=== PATIENT | male | born 1955 | race Caucasian/White ===

== ENCOUNTER 2023-05-19 08:22 | Inpatient (IN) | payer BC ==
[2023-05-19] MEDS ORDERED: HEPARIN SODIUM 1,000 UN/ML (10ML VL) MISCELLANE ONE (08:32)
[2023-05-19] MEDS ORDERED: ASPIRIN 300 MG SUPP RECTAL STA (08:32)
[2023-05-19] MEDS ORDERED: DEXTROSE 5% IN WATER 100 ML with AMIODARONE 150 MG IV ONE (08:34)
--- NOTE | 2023-05-19 08:34 | ED ---
Chest Pain HPI - General Chief Complaint: Chest Pain Stated Complaint: STEMI Time Seen by Provider: 05/19/23 08:25 Source: EMS Mode of arrival: EMS Limitations: no limitations - History of Present Illness Initial Comments: 67-year-old male with recent knee replacement 3 months ago who presents emergency department for chest pain. states that the patient got dressed this morning walked out to his treatment blind which is approximately 50 feet from the house. He had to turn around because he began having shortness of breath and chest pain. He ended up having an episode of vomiting. called EMS who found that the patient had an inferior wall STEMI. In route to the hospital they tried to give the patient aspirin however he was too nauseated. He ended up going unresponsive. Patient found to be in V. fib on the monitor. They started doing a few chest compressions while charging to shock. Patient shocked at 200 J. Patient went back into ventricular fibrillation required a second shock. Patient then went back into normal sinus rhythm. He is mentating appropriately and answering questions. Some blood noted coming from the right tympanic membrane. EMS states that this was not present prior to the patient being shocked. There was no head injury. He does not take any blood thinners. Patient states he feels cold. Denies having a cardiac history. Sees a primary care doctor out of [facility]. He denies shortness of breath. EMS provided 4 mg of Zofran and 200 mL of normal saline. No other alleviating, precipitating or modifying factors - Related Data Home Medications Medication Instructions Recorded Confirmed ALPRAZolam [Xanax] 0.25 mg PO DAILY PRN 05/19/23 05/19/23 Caffeine Tablet 1 tab PO DAILY PRN 05/19/23 05/19/23 Gabapentin 800 mg PO TID 05/19/23 05/19/23 Morphine Sulfate ER [Ms Contin] 30 mg PO Q12HR 05/19/23 05/19/23 PARoxetine [Paxil] 60 mg PO DAILY 05/19/23 05/19/23 Tamsulosin HCl [Flomax] 0.4 mg PO DAILY 05/19/23 05/19/23 oxyCODONE HCL [Oxycodone HCl] 15 mg PO BID 05/19/23 05/19/23 Allergies Allergy/AdvReac Type Severity Reaction Status Date / Time iodine AdvReac Itching Verified 11/26/23 12:57 Review of Systems ROS Statement: Those systems with pertinent positive or pertinent negative responses have been documented in the HPI. ROS Other: All systems not noted in ROS Statement are negative. Past Medical History - Past Family History Mother Family Medical History: No Reported History Father Family Medical History: Congestive Heart Failure (CHF) Additional Family Medical History / Comment(s): General Exam Limitations: no limitations General appearance: alert, in no apparent distress, lethargic Head exam: Present: atraumatic, normocephalic, normal inspection Eye exam: Present: normal appearance, PERRL, EOMI. Absent: scleral icterus, conjunctival injection, periorbital swelling ENT exam: Present: normal exam, mucous membranes moist Neck exam: Present: normal inspection. Absent: tenderness, meningismus, lymphadenopathy Respiratory exam: Present: normal lung sounds bilaterally. Absent: respiratory distress, wheezes, rales, rhonchi, stridor Cardiovascular Exam: Present: regular rate, normal rhythm, normal heart sounds. Absent: systolic murmur, diastolic murmur, rubs, gallop, clicks GI/Abdominal exam: Present: soft, normal bowel sounds. Absent: distended, tenderness, guarding, rebound, rigid Extremities exam: Present: normal inspection, full ROM, normal capillary refill. Absent: tenderness, pedal edema, joint swelling, calf tenderness Back exam: Present: normal inspection Neurological exam: Present: alert, oriented X3, CN II-XII intact Psychiatric exam: Present: normal affect, normal mood Skin exam: Present: warm, dry, intact, normal color. Absent: rash Course Vital Signs 05/19/23 08:24 Pulse Rate 89 Respiratory 24 Rate Blood Pressure 157/106 O2 Sat by Pulse 100 Oximetry Chest Pain MDM - MDM Was pt. sent in by a medical professional or institution (, PA, ROTATIONAL MOULDING OPERATOR, urgent care, hospital, or [facility]...) When possible be specific @ -No Did you speak to anyone other than the patient for history (EMS, parent, family, police, friend...)? What history was obtained from this source @ -Spoke with EMS and are history Did you review nursing and triage notes (agree or disagree)? Why? @ -I reviewed and agree with nursing and triage notes Were old charts reviewed (outside hosp., previous admission, EMS record, old EKG, old radiological studies, urgent care reports/EKG's, [facility] records)? Report findings @ -No old charts were reviewed Differential Diagnosis (chest pain, altered mental status, abdominal pain women, abdominal pain men, vaginal bleeding, weakness, fever, dyspnea, syncope, headache, dizziness, GI bleed, back pain, seizure, CVA, palpatations, mental health, musculoskeletal)? @ -Differential Chest Pain: Stable Angina, Unstable Angina, STEMI, NSTEMI Aortic Dissection, Pneumothorax, Musculoskeletal, Esophageal Spasm GERD, Cholecystitis, Pancreatitis, Zoster, this is not meant to be an all-inclusive list. EKG interpreted by me (3pts min.). @ -Yes and demonstrates sinus rhythm with a rate of 91. TN interval 144. QRS 102. QTC 441. Significant ST elevation 2, 3, aVF with reciprocal depressions in V1 through V4 X-rays interpreted by me (1pt min.). @ -Yes and demonstrates no acute intrathoracic process CT interpreted by me (1pt min.). @ -None done U/S interpreted by me (1pt. min.). @ -None done What testing was considered but not performed or refused? (CT, X-rays, U/S, labs)? Why? @ -None What meds were considered but not given or refused? Why? @ -None Did you discuss the management of the patient with other professionals (professionals i.e. , PA, ROTATIONAL MOULDING OPERATOR, lab, RT, psych nurse, social work associate, liquid center assembler, teacher, chief human resources officer, community case manager)? Give summary @ -Spoke with Dr. Warren Was smoking cessation discussed for >3mins.? @ -No Was critical care preformed (if so, how long)? @ -Yes, 35 minutes Were there social determinants of health that impacted care today? How? (Homelessness, low income, unemployed, alcoholism, drug addiction, transportation, low edu. Level, literacy, decrease access to med. care, halfway, rehab)? @ -No Was there de-escalation of care discussed even if they declined (Discuss DNR or withdrawal of care, Hospice)? DNR status @ -No What co-morbidities impacted this encounter? (DM, HTN, Smoking, COPD, CAD, Cancer, CVA, ARF, Chemo, Hep., AIDS, mental health diagnosis, sleep apnea, morbid obesity)? @ -None Was patient admitted / discharged? Hospital course, mention meds given and route, prescriptions, significant lab abnormalities, going to OR and other pertinent info. @ -Admitted. Patient is activated as a STEMI prehospital and I spoke with Dr. Warren. Upon arrival patient placed in a trauma 2. He is alert and oriented and answering questions appropriately. He is placed on continuous pulse ox and cardiac monitoring. Blood noted coming from the right tympanic membrane. 12- lead EKG is obtained which continues demonstrate STEMI. Patient is given 150 mg bolus of amiodarone, 300 of rectal aspirin, 1 L of normal saline hung, 4000 units of heparin. Chest x-ray was performed. Patient maintains normal sinus rhythm and is transferred to the [facility]. Spoke with Dr. Whitman who agreed to admission. Spoke with Dr. Warren to update him. The patient taken to the [facility] with a guarded prognosis Undiagnosed new problem with uncertain prognosis? @ -Yes Drug Therapy requiring intensive monitoring for toxicity (Heparin, Nitro, Insulin, Cardizem)? @ -heparin Were any procedures done? @ -No Diagnosis/symptom? @ -Acute chest pain, acute STEMI Acute, or Chronic, or Acute on Chronic? @ -Acute Uncomplicated (without systemic symptoms) or Complicated (systemic symptoms)? @ -Complicated Side effects of treatment? @ -No Exacerbation, Progression, or Severe Exacerbation? @ -No Poses a threat to life or bodily function? How? (Chest pain, USA, PR, pneumonia, PE, COPD, DKA, ARF, appy, cholecystitis, CVA, Diverticulitis, Homicidal, Suicidal, threat to staff... and all critical care pts) @ -Yes patient has acute coronary event identified and had V. fib arrest Disposition Clinical Impression: Chest pain, ST elevation myocardial infarction (STEMI), Cardiac arrest with ventricular fibrillation Disposition: ADMITTED IP TO THIS HOSP Condition: Serious Is patient prescribed a controlled substance at d/c from ED?: No Time of Disposition: 08:43 Decision to Admit Reason: Admit from EC Decision Date: 05/19/23 Decision Time: 08:43
[2023-05-19] MEDS ORDERED: SODIUM CHLORIDE 0.9% 1,000 ML IV STA (08:35)
[2023-05-19 08:41] LABS: Glucose,Whole Blood 256 mg/dL (70-110)
[2023-05-19] MEDS ORDERED: HEPARIN SODIUM 1,000 UN/ML (10ML VL) ONE (08:43)
[2023-05-19] MEDS ORDERED: niCARdipine 25 MG/10 ML VIAL ONE (08:43)
[2023-05-19] MEDS ORDERED: NALOXONE 0.4 MG/ML 1 ML VIAL IV PRN (08:43)
[2023-05-19] MEDS ORDERED: VERAPAMIL 2.5 MG/ML 2 ML AMP ONE (08:43)
[2023-05-19] MEDS ORDERED: LIDOCAINE 1% INJ 10MG/ML (20 ML MDV) ONE (08:43)
[2023-05-19 08:47] LABS: Basophils # (A) 0.1 k/uL (0-0.2); Basophils % (A) 1 %; Eosinophils # (A) 0.2 k/uL (0-0.7); Eosinophils % (A) 2 %; HCT 42.1 % (39.0-53.0); HGB 13.6 gm/dL (13.0-17.5); Hypochromasia Slight; Lymphocytes # (A) 1.9 k/uL (1.0-4.8); Lymphocytes % (A) 22 %; MCH 27.5 pg (25.0-35.0); MCHC 32.2 g/dL (31.0-37.0); MCV 85.5 fL (80.0-100.0); Mean Platelet Volume 7.8; Monocytes # (A) 0.4 k/uL (0-1.0); Monocytes % (A) 5 %; Neutrophils # (A) 5.7 k/uL (1.3-7.7); Neutrophils % (A) 67 %; Platelet Count 267 k/uL (150-450); RBC 4.92 m/uL (4.30-5.90); RDW 15.6 % (11.5-15.5); WBC 8.6 k/uL (3.8-10.6)
--- NOTE | 2023-05-19 08:52 | XR ---
EXAMINATION TYPE: XR chest 1V DATE OF EXAM: 05/19/2023 8:37 AM CLINICAL INDICATION:Male, 67 years old with history of STEMI; [facility] COMPARISON: None. TECHNIQUE: XR chest 1V Frontal view of the chest. FINDINGS: Lungs/Pleura: There is no evidence of pleural effusion, focal consolidation, or pneumothorax. Pulmonary vascularity: Unremarkable. Heart/mediastinum: Cardiomediastinal silhouette is unremarkable. Musculoskeletal: No acute osseous pathology. Partially visualized cervical fusion hardware. IMPRESSION: No acute cardiopulmonary disease/process.
[2023-05-19] MEDS ORDERED: IV FLUID CONTINUATION 1,000 ML IV ONE (08:55)
[2023-05-19] MEDS ORDERED: methylPREDNISolone SOD SUCCI 125 MG/2 ML VIAL ONE (08:59)
[2023-05-19] MEDS ORDERED: diphenhydrAMINE 50 MG/ML 1 ML VIAL ONE (09:00)
[2023-05-19] MEDS ORDERED: LIDOCAINE 1% INJ 10MG/ML (20 ML MDV) SQ ONE (09:01)
[2023-05-19 09:02] LABS: ALT 43 U/L (4-49); AST 35 U/L (17-59); African American GFR (CKD) >90 (>60 ml/min/1.73 sqM); Albumin 4.5 g/dL (3.5-5.0); Alkaline Phosphatase 139 U/L (38-126); Anion Gap 22 mmol/L; Blood Urea Nitrogen 12 mg/dL (9-20); Calcium 9.6 mg/dL (8.4-10.2); Carbon Dioxide 14 mmol/L (22-30); Chloride 105 mmol/L (98-107); Glucose 216 mg/dL (74-99); Non-African American GFR(CKD) >90 (>60 ml/min/1.73 sqM); Potassium 3.5 mmol/L (3.5-5.1); Sodium 141 mmol/L (137-145); Total Bilirubin 0.4 mg/dL (0.2-1.3); Total Protein 7.2 g/dL (6.3-8.2)
[2023-05-19] MEDS ORDERED: MIDAZOLAM 2 MG/2 ML VIAL IVP ONE (09:02)
[2023-05-19] MEDS ORDERED: methylPREDNISolone SOD SUCCI 125 MG/2 ML VIAL IV ONE (09:02)
[2023-05-19 09:05] LABS: Partial Thromboplastin Time 22.6 sec (22.0-30.0); Prothrombin Time 10.8 sec (10.0-12.5)
[2023-05-19] MEDS: HEPARIN SODIUM 1,000 UN/ML (10ML VL) IV ONE ×2 (09:13→09:33)
[2023-05-19] MEDS ORDERED: PRASUGREL 10 MG TAB ONE (09:17)
[2023-05-19] MEDS ORDERED: PRASUGREL 10 MG TAB PO ONE (09:20)
[2023-05-19] MEDS ORDERED: TIROFIBAN 12.5MG-250ML NS 250 ML IV ONE (09:28)
[2023-05-19] MEDS ORDERED: niCARdipine Syringe (1,000 mcg/10 mL) INTRACORON ONE (09:30)
[2023-05-19] MEDS ORDERED: IOPAMIDOL-370 100ML BTL INJ ONE (09:33)
[2023-05-19] MEDS ORDERED: ZOLPIDEM 5 MG TAB PO PRN (09:39)
[2023-05-19] MEDS ORDERED: RX INFO: IV CONTRAST WAS GIVEN 1 EACH MISC MISCELLANE PRN (09:39)
[2023-05-19] MEDS ORDERED: ATROPINE SULFATE 0.1 MG/ML 10ML SYRINGE IV PRN (09:39)
[2023-05-19] MEDS ORDERED: NITROGLYCERIN SL TABS 0.4 MG TAB SUBLINGUAL PRN (09:39)
[2023-05-19] MEDS ORDERED: SODIUM CHLORIDE 0.9% 1,000 ML in EMPTY BAG 1 BAG IV SCH (09:45)
[2023-05-19] MEDS ORDERED: TIROFIBAN 12.5MG-250ML NS 250 ML IV SCH (10:00)
[2023-05-19 10:13] LABS: Glucose,Whole Blood 210 mg/dL (70-110)
[2023-05-19] MEDS ORDERED: DEXTROSE 50% SYRINGE 50 ML IVP PRN ×2 (10:33)
[2023-05-19] MEDS ORDERED: oxyCODONE ER 15 MG TAB.ER.12H PO SCH (10:45)
[2023-05-19] MEDS: GABAPENTIN 400 MG CAP PO SCH ×3 (10:46→23:16)
[2023-05-19] MEDS: LIDOCAINE 5% PATCH TOPICAL SCH ×2 (10:55→13:50)
[2023-05-19] MEDS ORDERED: ONDANSETRON 4 MG/2 ML VIAL IVP PRN (11:20)
[2023-05-19 11:38] LABS: Glucose,Whole Blood 166 mg/dL (70-110)
[2023-05-19] MEDS: INSULIN ASPART (NovoLOG) 100 UNIT/ML VIAL SQ SCH ×3 (11:49→20:37)
[2023-05-19] MEDS ORDERED: PANTOPRAZOLE 40 MG/10 ML VIAL IVP SCH (13:00)
[2023-05-19] MEDS ORDERED: hydrALAZINE HCL 20 MG/ML 1 ML VIAL IVP PRN (14:49)
[2023-05-19] MEDS: lisinopriL 5 MG TAB PO SCH (15:08)
[2023-05-19] MEDS: ALPRAZolam 0.25 MG TAB PO PRN (15:08)
[2023-05-19] MEDS: HYDROmorphone 1 MG/ML 1 ML SYRINGE IVP PRN ×2 (15:27→20:30)
[2023-05-19 16:43] LABS: Glucose,Whole Blood 183 mg/dL (70-110)
--- NOTE | 2023-05-19 16:54 | P.HPIM ---
History of Present Illness H&P Date: 05/19/23 Patient is a 67-year-old male with history of chronic low back pain on opiate therapy, depression presenting with chest pain. He claims that this morning he ran out for hunting, although he walked about 50 feet. He started noticing chest heaviness, shortness of breath, nausea and vomiting. He was diaphoretic. called EMS. EKG independently interpreted, showed ST elevation in inferior leads. While in the ambulance, patient had cardiac arrest, had CPR. Rhythm was ventricular fibrillation, patient was shocked and had ROSC. Taken directly to dye lab technician. Initial WBC 8.6, hemoglobin 13.6, platelet 267, troponin 0.025, glucose 256, creatinine 0.77, bicarb 14, anion gap 22, magnesium 2. Patient had RCA stenosis, status post stent. Currently being monitored in the ICU. He currently complains of chest pain at the site of CPR, denies any significant shortness of breath, abdominal pain, nausea, vomiting, urinary or bowel complaints. Pertinent positives and negatives as discussed in HPI, a complete review of systems was performed and all other systems are negative. Patient seen and examined at bedside. Vital signs reviewed General: nontoxic, no distress, appears at stated age Derm: warm, dry Head: atraumatic, normocephalic, symmetric Eyes: EOMI, no lid lag, anicteric sclera, pupils equal round reactive to light ENT: Nose and ears atraumatic Neck: No thyromegaly, supple Mouth: no lip lesion, mucus membranes moist Cardiovascular: S1S2 reg, no murmur, no edema, sternal tenderness to palpation Lungs: clear to auscultation bilateral, no rhonchi, no rales, no wheeze, no accessory muscle use Abdominal: soft, nontender to palpation, no guarding, no appreciable organomegaly Ext: no gross muscle atrophy, muscle strength muscle strength 5 out of 5 in all 4 extremities, no contractures Neuro: CN II-XII grossly intact Psych: Alert, oriented, appropriate affect Assessment/Plan: Active: Inferior STEMI status post stent CAD Status post V. fib Cardiac arrest -Discussed management with cardiology, had RCA lesion, stent placed, other nonobstructive coronary artery disease -Echocardiogram pending -Continue telemetry, continue monitor in the ICU -Started on aspirin 81 mg, atorvastatin 80 mg, effient 10 mg daily -Also on Aggrastat for 6 hours -Started on lisinopril 5 mg daily, metoprolol 25 mg twice a day -On lidocaine patches for chest pain at the site of CPR -Also started on home narcotics, additionally added Dilaudid 1 mg IV every 6 hours as needed for breakthrough pain Chronic: Chronic low back pain on opiate therapy Depression BPH The patient is admitted with an anticipated greater than 2 midnight stay as inpatient status for evaluation of STEMI. Surrogate decision-maker: Significant other CODE STATUS: Full code DVT prophylaxis: Subcu heparin Anticipated discharge date: Pending clinical course Anticipated discharge place: Pending clinical course A total of 55 minutes was spent on the care of this complex patient more than 50% of the time was spent in counseling and care coordination. Past Medical History Additional Past Medical History / Comment(s): Knee replacement- jan 2023, then fall with break in leg. Depression History of Any Multi-Drug Resistant Organisms: None Reported Past Surgical History: Orthopedic Surgery Past Anesthesia/Blood Transfusion Reactions: No Reported Reaction Past Psychological History: Anxiety, Depression Smoking Status: Former smoker Past Drug Use History: Marijuana Additional Drug Use History / Comment(s): Marijuana daily - Past Family History Mother Family Medical History: No Reported History Father Family Medical History: Congestive Heart Failure (CHF) Additional Family Medical History / Comment(s): Medications and Allergies Home Medications Medication Instructions Recorded Confirmed Type ALPRAZolam [Xanax] 0.25 mg PO DAILY PRN 05/19/23 05/19/23 History Caffeine Tablet 1 tab PO DAILY PRN 05/19/23 05/19/23 History Gabapentin 800 mg PO TID 05/19/23 05/19/23 History Morphine Sulfate ER [Ms Contin] 30 mg PO Q12HR 05/19/23 05/19/23 History PARoxetine [Paxil] 60 mg PO DAILY 05/19/23 05/19/23 History Tamsulosin HCl [Flomax] 0.4 mg PO DAILY 05/19/23 05/19/23 History oxyCODONE HCL [Oxycodone HCl] 15 mg PO BID 05/19/23 05/19/23 History Allergies Allergy/AdvReac Type Severity Reaction Status Date / Time iodine AdvReac Itching Verified 05/19/23 12:57 Physical Exam Vitals: Vital Signs Temp Pulse Resp BP Pulse Ox 05/19/23 14:15 84 21 161/103 96 05/19/23 14:00 71 10 L 147/91 99 05/19/23 13:45 75 19 162/102 95 05/19/23 13:30 79 20 154/97 92 L 05/19/23 13:15 71 14 149/107 95 05/19/23 13:00 71 20 158/99 97 05/19/23 12:45 80 26 H 148/101 97 05/19/23 12:30 73 14 160/98 96 05/19/23 12:15 80 12 152/101 97 05/19/23 12:00 97.7 F 79 12 157/97 95 05/19/23 11:45 75 14 153/110 97 05/19/23 11:30 79 19 151/99 94 L 05/19/23 11:15 73 14 156/108 96 05/19/23 11:00 84 17 158/99 97 05/19/23 10:45 78 5 L 156/97 97 05/19/23 10:30 74 8 L 153/97 97 05/19/23 10:15 97.9 F 85 12 98 05/19/23 10:12 86 29 H 05/19/23 08:24 89 24 157/106 100 Intake and Output 05/19/23 05/19/23 05/19/23 06:59 14:59 22:59 Intake Total 826.75 Output Total 800 Balance 26.75 Intake: IV 826.75 Sodium Chloride 0.9% 1, 300 000 ml In Empty Bag 1 bag @ 75 mls/hr IV .[id number] JENN[facility]ER Rx#:[id number] Tirofiban 12.5MG-250Ml Ns 36.75 250 ml @ 0.15 MCG/KG/MIN 12.247 mls/hr IV . [id number] [facility] Rx#:[id number] Output: Urine 800 Other: Voiding Method Urinal # Voids 1 Weight 68.039 kg Results CBC & Chem 7: 05/19/23 08:38 05/19/23 08:38 Labs: Abnormal Lab Results - Last 24 Hours (Table) 05/19/23 05/19/23 05/19/23 Range/Units 08:38 08:38 08:39 RDW 15.6 H (11.5-15.5) % Carbon Dioxide 14 L (22-30) mmol/L Glucose 216 H (74-99) mg/dL POC Glucose (mg/dL) 256 H (70-110) mg/dL Alkaline Phosphatase 139 H (38-126) U/L 05/19/23 05/19/23 Range/Units 10:12 11:36 RDW (11.5-15.5) % Carbon Dioxide (22-30) mmol/L Glucose (74-99) mg/dL POC Glucose (mg/dL) 210 H 166 H (70-110) mg/dL Alkaline Phosphatase (38-126) U/L Thrombosis Risk Factor Assmnt - Choose All That Apply Any of the Below Risk Factors Present?: Yes Each Factor Represents 1 point: Acute HI Other Risk Factors: No Thrombosis Risk Factor Assessment Total Risk Factor Score: 1 Thrombosis Risk Factor Assessment Level: Low Risk
[2023-05-19] MEDS: CALCIUM CARBONATE 500 MG CHEWABLE PO PRN (18:02)
--- NOTE | 2023-05-19 18:16 | P.CRDCN ---
History of Present Illness Consult date: 05/19/23 Chief complaint: Chest pain History of present illness: The patient is a pleasant 67-year-old gentleman with hypertension and dyslipidemia presented to the emergency department complaining of chest discomfort. He was in his usual state of health until about a few hours when he started experiencing discomfort in the middle of the chest as a pressure on the chest with radiation to the left arm. No associated symptoms of shortness of breath or dizziness or lightheadedness or any feeling of heart racing or fluttering or any presyncope or syncope. His brought the patient to the emergency department where he underwent further workup including an EKG showing inferior ST elevation myocardial infarction. Subsequently underwent an emergent heart catheterization and was found to have acute total occlusion of the RCA distally was extremely large thrombus burden. The patient underwent successful PCI of the RCA with a good angiographic results by the end. After aspiration thrombectomy the thrombus burden has decreased but continues to be there. The patient was placed on Aggrastat and he was sent to the intensive care unit. He was chest pain-free VT has been maintaining normal sinus mechanism. Please note that on the way to the hospital by ambulance the patient did have an episode of cardiac arrest was V. fib and he was cardioverted. Since then he had no more episodes of ventricular fibrillation or ventricular tachycardia. The examination is remarkable for regular rhythm and systolic murmur at the right and left upper sternal border with a clear breathing sounds bilaterally and no lower extremities edema noted. He does have some blood in the right ear after the cardioversion Assessment Acute inferior ST elevation myocardial infarction Cardiac arrest in the setting of STEMI Status post PCI of the RCA History of smoking Plan Continue the current medical regimen Continue dual antiplatelet therapy along with high intensity statin Obtain an echo to establish LV function Continue Aggrastat for now Monitor the groin very closely Monitor the hemoglobin Monitor for any arrhythmia Follow-up with the patient Past Medical History Additional Past Medical History / Comment(s): Knee replacement- jan 2023, then fall with break in leg. Depression History of Any Multi-Drug Resistant Organisms: None Reported Past Surgical History: Orthopedic Surgery Past Anesthesia/Blood Transfusion Reactions: No Reported Reaction Past Psychological History: Anxiety, Depression Smoking Status: Former smoker Past Drug Use History: Marijuana Additional Drug Use History / Comment(s): Marijuana daily - Past Family History Mother Family Medical History: No Reported History Father Family Medical History: Congestive Heart Failure (CHF) Additional Family Medical History / Comment(s): Medications and Allergies Home Medications Medication Instructions Recorded Confirmed Type ALPRAZolam [Xanax] 0.25 mg PO DAILY PRN 05/19/23 05/19/23 History Caffeine Tablet 1 tab PO DAILY PRN 05/19/23 05/19/23 History Gabapentin 800 mg PO TID 05/19/23 05/19/23 History Morphine Sulfate ER [Ms Contin] 30 mg PO Q12HR 05/19/23 05/19/23 History PARoxetine [Paxil] 60 mg PO DAILY 05/19/23 05/19/23 History Tamsulosin HCl [Flomax] 0.4 mg PO DAILY 05/19/23 05/19/23 History oxyCODONE HCL [Oxycodone HCl] 15 mg PO BID 05/19/23 05/19/23 History Allergies Allergy/AdvReac Type Severity Reaction Status Date / Time iodine AdvReac Itching Verified 05/19/23 12:57 Physical Exam Vitals: Vital Signs Temp Pulse Resp BP Pulse Ox 05/19/23 17:00 98 19 166/106 96 05/19/23 16:30 93 18 164/109 96 05/19/23 16:00 98.1 F 85 10 L 167/104 96 05/19/23 15:30 92 17 161/105 98 05/19/23 15:00 89 23 166/114 97 05/19/23 14:30 90 16 161/103 98 05/19/23 14:15 84 21 161/103 96 05/19/23 14:00 71 10 L 147/91 99 05/19/23 13:45 75 19 162/102 95 05/19/23 13:30 79 20 154/97 92 L 05/19/23 13:15 71 14 149/107 95 05/19/23 13:00 71 20 158/99 97 05/19/23 12:45 80 26 H 148/101 97 05/19/23 12:30 73 14 160/98 96 05/19/23 12:15 80 12 152/101 97 05/19/23 12:00 97.7 F 79 12 157/97 95 05/19/23 11:45 75 14 153/110 97 05/19/23 11:30 79 19 151/99 94 L 05/19/23 11:15 73 14 156/108 96 05/19/23 11:00 84 17 158/99 97 05/19/23 10:45 78 5 L 156/97 97 05/19/23 10:30 74 8 L 153/97 97 05/19/23 10:15 97.9 F 85 12 98 05/19/23 10:12 86 29 H 05/19/23 08:42 82 18 139/87 96 05/19/23 08:24 89 24 157/106 100 Intake and Output 05/19/23 05/19/23 05/19/23 06:59 14:59 22:59 Intake Total 826.75 261.75 Output Total 800 200 Balance 26.75 61.75 Intake: IV 826.75 261.75 Sodium Chloride 0.9% 1, 300 225 000 ml In Empty Bag 1 bag @ 75 mls/hr IV .[id number] [facility] Rx#:[id number] Tirofiban 12.5MG-250Ml Ns 36.75 36.75 250 ml @ 0.15 MCG/KG/MIN 12.247 mls/hr IV . [id number] [facility] Rx#:[id number] Output: Urine 800 200 Other: Voiding Method Urinal Urinal # Voids 1 1 Weight 68.039 kg Results 05/19/23 08:38 05/19/23 08:38 Cardiac Enzymes 05/19/23 05/19/23 Range/Units 08:38 08:38 AST 35 (17-59) U/L Troponin I 0.025 (0.000-0.034) ng/mL Coagulation 05/19/23 Range/Units 08:38 PT 10.8 (10.0-12.5) sec APTT 22.6 (22.0-30.0) sec CBC 05/19/23 Range/Units 08:38 WBC 8.6 (3.8-10.6) k/uL RBC 4.92 (4.30-5.90) m/uL Hgb 13.6 (13.0-17.5) gm/dL Hct 42.1 (39.0-53.0) % Plt Count 267 (150-450) k/uL Comprehensive Metabolic Panel 05/19/23 Range/Units 08:38 Sodium 141 (137-145) mmol/L Potassium 3.5 (3.5-5.1) mmol/L Chloride 105 (98-107) mmol/L Carbon Dioxide 14 L (22-30) mmol/L BUN 12 (9-20) mg/dL Creatinine 0.77 (0.66-1.25) mg/dL Glucose 216 H (74-99) mg/dL Calcium 9.6 (8.4-10.2) mg/dL AST 35 (17-59) U/L ALT 43 (4-49) U/L Alkaline Phosphatase 139 H (38-126) U/L Total Protein 7.2 (6.3-8.2) g/dL Albumin 4.5 (3.5-5.0) g/dL Current Medications Generic Name Dose Route Start Last Admin Trade Name Freq PRN Reason Stop Dose Admin Al Hydroxide/Mg Hydroxide 30 ml 05/19/23 09:39 Mag Hydrox/Al Hydrox/Simeth 30 Ml Cup PO Q4HR PRN Heartburn Alprazolam 0.25 mg 05/19/23 14:42 05/19/23 15:08 Alprazolam 0.25 Mg Tab PO 0.25 mg DAILY PRN Administration Anxiety Aspirin 81 mg 05/20/23 09:00 Aspirin 81 Mg PO DAILY [facility] Atorvastatin Calcium 80 mg 05/19/23 21:00 Atorvastatin 80 Mg Tab PO HS [facility] Atropine Sulfate 0.5 mg 05/19/23 09:39 Atropine Sulfate 0.1 Mg/Ml 10ml Syringe IV ONCE PRN Symptomatic Bradycardia Calcium Carbonate/Glycine 500 mg 05/19/23 17:17 05/19/23 18:02 Calcium Carbonate 500 Mg Chewable PO 500 mg TID PRN Administration Heartburn Dextrose/Water 25 ml 05/19/23 10:33 Dextrose 50% Syringe 50 Ml IVP PER PROTOCOL PRN Hypoglycemia Protocol Dextrose/Water 50 ml 05/19/23 10:33 Dextrose 50% Syringe 50 Ml IVP PER PROTOCOL PRN Hypoglycemia Protocol Gabapentin 800 mg 05/19/23 10:45 05/19/23 16:38 Gabapentin 400 Mg Cap PO Not Given TID [facility] Hydralazine HCl 10 mg 05/19/23 14:49 05/19/23 16:38 Hydralazine Hcl 20 Mg/Ml 1 Ml Vial IVP 10 mg Q4HR PRN Administration SBP greater than 160 Hydromorphone HCl 1 mg 05/19/23 15:23 05/19/23 15:27 Hydromorphone 1 Mg/Ml 1 Ml Syringe IVP 1 mg Q6HR PRN Administration Pain Tirofiban/Sodium Chloride 250 mls @ 12.247 mls/hr 05/19/23 10:00 05/19/23 10:14 Aggrastat 12.5 Mg/250 Ml Ns IV 05/20/23 04:00 12.247 mls/hr .[id number] [facility] Administration 0.15 MCG/KG/MIN Insulin Aspart 0 unit 05/19/23 12:30 05/19/23 16:44 Insulin Aspart (Novolog) 100 Unit/Ml Vial SQ 1 unit ACHS [facility] Administration Protocol Lidocaine 1 patch 05/19/23 10:45 05/19/23 13:50 Lidocaine 5% Patch TOPICAL 1 patch DAILY [facility] Administration Protocol Lisinopril 5 mg 05/19/23 15:00 05/19/23 15:08 Lisinopril 5 Mg Tab PO 5 mg DAILY [facility] Administration Metoprolol Tartrate 25 mg 05/19/23 21:00 Metoprolol Tartrate 25 Mg Tab PO BID [facility] Miscellaneous Information 1 each 05/19/23 09:39 Rx Info: Iv Contrast Was Given 1 Each Misc MISCELLANE 05/21/23 09:39 DAILY PRN Per Protocol Morphine Sulfate 30 mg 05/19/23 21:00 Morphine Sulfate Er 30 Mg Tablet PO Q12HR [facility] Protocol Naloxone HCl 0.2 mg 05/19/23 08:43 Naloxone 0.4 Mg/Ml 1 Ml Vial IV Q2M PRN Opioid Reversal Nitroglycerin 0.4 mg 05/19/23 09:39 Nitroglycerin Sl Tabs 0.4 Mg Tab SUBLINGUAL Q5M PRN Chest Pain Ondansetron HCl 4 mg 05/19/23 11:20 05/19/23 11:24 Ondansetron 4 Mg/2 Ml Vial IVP 4 mg Q6HR PRN Administration Nausea And Vomiting Oxycodone HCl 15 mg 05/19/23 21:00 Oxycodone Hcl 5 Mg Tab PO BID [facility] Pantoprazole Sodium 40 mg 05/19/23 13:00 05/19/23 13:50 Pantoprazole 40 Mg/10 Ml Vial IVP 40 mg DAILY [facility] Administration Paroxetine HCl 60 mg 05/20/23 09:00 Paroxetine 20 Mg Tab PO DAILY [facility] Prasugrel 10 mg 05/20/23 09:00 Prasugrel 10 Mg Tab PO DAILY [facility] Protocol Tamsulosin HCl 0.4 mg 05/20/23 09:00 Tamsulosin 0.4 Mg Cap.Er.24h PO DAILY [facility] Zolpidem Tartrate 5 mg 05/19/23 09:39 Zolpidem 5 Mg Tab PO HS PRN Insomnia Intake and Output 05/19/23 05/19/23 05/19/23 06:59 14:59 22:59 Intake Total 826.75 261.75 Output Total 800 200 Balance 26.75 61.75 Intake: IV 826.75 261.75 Sodium Chloride 0.9% 1, 300 225 000 ml In Empty Bag 1 bag @ 75 mls/hr IV .[id number] [facility] Rx#:[id number] Tirofiban 12.5MG-250Ml Ns 36.75 36.75 250 ml @ 0.15 MCG/KG/MIN 12.247 mls/hr IV . [id number] [facility] Rx#:[id number] Output: Urine 800 200 Other: Voiding Method Urinal Urinal # Voids 1 1 Weight 68.039 kg Patient Weight 05/20/23 06:59 Weight 68.039 kg 05/19/23 08:38 05/19/23 08:38
--- NOTE | 2023-05-19 18:21 | P.PCN ---
Date of Procedure: 05/19/23 Operative Findings: CARDIAC CATHETERIZATION AND PERCUTANEOUS CORONARY INTERVENTION PERFORMING PHYSICIAN: David Duke MD, [facility] PROCEDURE PERFORMED: 1. Selective right and left coronary angiogram 2. Left heart catheterization 3. Successful stenting of distal RCA using 4.5 x 23 mm Xience WILLEM with an excellent angiographic results 4. Adjunctive use of intravascular imaging and aspiration thrombectomy 5. Selective right common femoral artery and INDICATION: Acute inferior ST elevation myocardial infarction COMPLICATION: None APPROACH: Right common femoral artery LEVEL OF SEDATION: Moderate with the sedation time off 38 minutes PROCEDURE DESCRIPTION: After obtaining an informed consent the patient was brought to the cardiac oil laboratory analyst. The right common femoral artery was cannulated using micropuncture technique under ultrasound guidance the micropuncture wire passed easily then I placed a 6-Lithuanian 11 cm sheath at the right common femoral artery. Selective left and right coronary angiogram performed using JL4 and JR4 catheter. After that left heart catheterization was performed using the JR4 catheter which across aortic valve. After that I did intervene on the right coronary artery. The procedure was completed with no complication after selective right common femoral artery angiogram performed. SELECTIVE CORONARY ANGIOGRAM: The right coronary artery: Large caliber vessel and a dominant vessel with a plaque rupture and large thrombus formation involving the distal RCA. The RCA is diffusely disease and a dominant vessel Left main: Short but has mild disease only. Bifurcates into an LCx and LAD The left circumflex: Large caliber vessel nondominant vessel. The LCx has mild disease only. Gives rises into an OM which is a medium caliber vessel but angiographically no The left anterior descending artery: Large-caliber vessel was mild disease only. It gives rises into the first and second diagonal branches both appears to be normal HEMODYNAMICS: The LVEDP was 26 mmHg was no significant gradient across aortic PCI OF THE RCA: Anticoagulation was initiated using heparin with continuous ACT monitoring. Subsequently I did engage the RCA using JR4 guiding catheter. I did wire it using a run-through wire. The wire was advanced the PLV branch of RCA. Aspiration thrombectomy was performed with extraction of small thrombus burden. After that intravascular ultrasound was performed and showed a diameter of 4.5 mm. Predilatation was performed using 3.5 mm balloon before I deployed a 4.5 x 23 mm stent where the stent was positioned under fluoroscopy guidance and deployed under fluoroscopy guidance. The following angiogram showed the stent was not well opposed. I postdilated using 5 mm noncompliant balloon. There was still residual thrombus burden was identified. We attempted aspiration thrombectomy again. After that the flow was better and the thrombus burden was a smaller. We decided to place the patient on Aggrastat. The procedure was completed was no complication CONCLUSION: Acute inferior ST elevation myocardial infarction Acute total occlusion of the distal RCA was a large thrombus burden. I did perform successful stenting of the RCA Mild disease involving the left coronary system Elevated left-sided filling pressure POSTPROCEDURE MANAGEMENT: 1. Dual antiplatelet therapy using aspirin and Effient for 12 month 2. Aggressive cholesterol control 3. Follow-up with the patient
[2023-05-19] MEDS ORDERED: PARoxetine 20 MG TAB PO STA (20:22)
[2023-05-19 20:28] LABS: Glucose,Whole Blood 146 mg/dL (70-110)
[2023-05-19] MEDS: ATORVASTATIN 80 MG TAB PO SCH (20:29)
[2023-05-19] MEDS: METOPROLOL TARTRATE 25 MG TAB PO SCH (20:29)
[2023-05-19] MEDS: MORPHINE SULFATE ER 30 MG TABLET PO SCH (20:29)
[2023-05-20] MEDS: HYDROmorphone 1 MG/ML 1 ML SYRINGE IVP PRN ×4 (01:59→19:54)
[2023-05-20 04:15] LABS: Anisocytosis Slight; Basophils % (A) 0 %; Eosinophils % (A) 0 %; HGB 12.2 gm/dL (13.0-17.5); Lymphocytes # (A) 0.8 k/uL (1.0-4.8); Lymphocytes % (A) 4 %; MCH 27.1 pg (25.0-35.0); MCHC 32.8 g/dL (31.0-37.0); MCV 82.6 fL (80.0-100.0); Mean Platelet Volume 7.8; Monocytes # (A) 1.1 k/uL (0-1.0); Monocytes % (A) 5 %; Neutrophils # (A) 19.3 k/uL (1.3-7.7); Neutrophils % (A) 90 %; Platelet Count 250 k/uL (150-450); RBC 4.49 m/uL (4.30-5.90); WBC 21.4 k/uL (3.8-10.6)
[2023-05-20 05:08] LABS: African American GFR (CKD) >90 (>60 ml/min/1.73 sqM); Anion Gap 10 mmol/L; Blood Urea Nitrogen 13 mg/dL (9-20); Calcium 9.1 mg/dL (8.4-10.2); Carbon Dioxide 24 mmol/L (22-30); Chloride 101 mmol/L (98-107); Glucose 127 mg/dL (74-99); Magnesium 1.7 mg/dL (1.6-2.3); Non-African American GFR(CKD) >90 (>60 ml/min/1.73 sqM); Potassium 3.8 mmol/L (3.5-5.1); Sodium 135 mmol/L (137-145)
[2023-05-20] MEDS ORDERED: Potassium Replacement Protocol 1 EACH MISC MISCELLANE PRN ×2 (05:35→05:41)
[2023-05-20] MEDS ORDERED: Magnesium Replacement Protocol 1 EACH MISC MISCELLANE PRN (05:36)
[2023-05-20] MEDS ORDERED: MAGNESIUM SULFATE-D5W PMX 1 GM in DEXTROSE/WATER 1 100ML.BAG IVPB ONE (05:36)
[2023-05-20] MEDS ORDERED: POTASSIUM BICARBONATE/CIT AC 20 MEQ TABLET.EFF NG-TUBE SCH ×2 (06:00)
[2023-05-20 06:38] LABS: Glucose,Whole Blood 134 mg/dL (70-110)
[2023-05-20] MEDS: INSULIN ASPART (NovoLOG) 100 UNIT/ML VIAL SQ SCH ×4 (06:51→20:18)
[2023-05-20] MEDS: PARoxetine 20 MG TAB PO SCH (08:24)
[2023-05-20] MEDS: ASPIRIN 81 MG PO SCH (08:24)
[2023-05-20] MEDS: TAMSULOSIN 0.4 MG CAP.ER.24H PO SCH (08:24)
[2023-05-20] MEDS: METOPROLOL TARTRATE 25 MG TAB PO SCH ×2 (08:25→20:20)
[2023-05-20] MEDS: PANTOPRAZOLE 40 MG TABLET PO SCH (08:25)
[2023-05-20] MEDS: GABAPENTIN 400 MG CAP PO SCH ×3 (08:25→20:20)
[2023-05-20] MEDS: MORPHINE SULFATE ER 30 MG TABLET PO SCH ×2 (08:25→20:21)
[2023-05-20] MEDS: lisinopriL 5 MG TAB PO SCH (08:25)
[2023-05-20] MEDS: LIDOCAINE 5% PATCH TOPICAL SCH (08:37)
[2023-05-20] MEDS: PRASUGREL 10 MG TAB PO SCH (09:24)
--- NOTE | 2023-05-20 10:55 | P.PN ---
Subjective Progress Note Date: 05/20/23 Hospital Course: 67-year-old male with history of chronic low back pain on opiate therapy, depression presenting with chest pain. EKG independently interpreted, showed ST elevation in inferior leads. While in the ambulance, patient had cardiac arrest, had CPR. Rhythm was ventricular fibrillation, patient was shocked and had ROSC. Taken directly to oven laborer. Initial WBC 8.6, hemoglobin 13.6, platelet 267, troponin 0.025, glucose 256, creatinine 0.77, bicarb 14, anion gap 22, magnesium 2. Patient had RCA stenosis, status post stent. Currently being monitored in the ICU. Subjective: Patient seen and examined at bedside. No acute events overnight. Still having sternal chest pain. This is where he cut CPR. Pertinent positives and negatives as discussed above, a complete review of systems was performed and all other systems are negative. Vitals Signs Reviewed. General: nontoxic, no distress, appears at stated age Derm: warm, dry Head: atraumatic, normocephalic, symmetric Eyes: EOMI, no lid lag, anicteric sclera Mouth: no lip lesion, mucus membranes moist Cardiovascular: S1S2 reg, no murmur, chest tenderness to palpation Lungs: CTA bilateral, no rhonchi, no rales , no accessory muscle use Abdominal: soft, nontender to palpation, no guarding, no appreciable organomegaly Ext: no gross muscle atrophy, no edema, no contractures Neuro: CN II-XI grossly intact, no focal neuro deficits Psych: Alert, oriented, appropriate affect Data Reviewed Today: Pertinent Labs: WBC 21.4, hemoglobin 12.2, sodium 135, potassium 3.8, creatinine 0.62, A1c 6, blood sugars range between 126-183, TSH 0.9 through 4, magnesium 1.7 Imaging: EKG independently interpreted from this morning, shows Q waves and T- wave inversions in inferior leads. Assessment and Plan: Active: Inferior STEMI status post stent CAD Status post V. fib Cardiac arrest Prediabetes, A1c 6 Leukocytosis, likely reactive GERD Hypomagnesemia -Cardiology following -Echocardiogram completed, pending report -Continue telemetry, continue monitor in the ICU -On aspirin 81 mg, atorvastatin 80 mg, effient 10 mg daily -on lisinopril 5 mg daily, metoprolol 25 mg twice a day -On lidocaine patches for chest pain at the site of CPR -Also started on home narcotics, additionally added Dilaudid 1 mg IV every 6 hours as needed for breakthrough pain -Continue sliding scale insulin, monitor for hypoglycemia -Started on pantoprazole 40 mg daily -2 g IV magnesium sulfate ordered -Repeat CBC and BMP and magnesium tomorrow Chronic: Chronic low back pain on opiate therapy Depression BPH DVT ppx: Subcu heparin Code status: Full code Anticipated discharge place: Likely home Anticipated discharge time: Pending clinical course Objective - Vital Signs Vital signs: Vital Signs Temp 98.5 F 05/20/23 08:00 Pulse 68 05/20/23 10:00 Resp 19 05/20/23 10:00 BP 124/82 05/20/23 10:00 Pulse Ox 97 05/20/23 10:00 FiO2 Intake & Output 05/19/23 05/20/23 05/20/23 18:59 06:59 18:59 Intake Total 1175.75 1122.50 250 Output Total 1175 1250 0 Balance 0.75 -127.50 250 Weight 68.039 kg 70 kg 70 kg Intake: IV 1175.75 1022.50 Sodium Chloride 0.9% 1, 600 900 000 ml In Empty Bag 1 bag @ 75 mls/hr IV .[id number] [facility] Rx#:[id number] Tirofiban 12.5MG-250Ml Ns 85.75 122.50 250 ml @ 0.15 MCG/KG/MIN 12.247 mls/hr IV . [id number] [facility] Rx#:[id number] Oral 100 250 Output: Urine 1175 1250 0 Other: Voiding Method Urinal Urinal Urinal # Voids 1 - Labs CBC & Chem 7: 05/20/23 03:08 05/20/23 03:08 Labs: Abnormal Lab Results - Last 24 Hours (Table) 05/19/23 05/19/23 05/19/23 Range/Units 11:36 16:41 20:26 WBC (3.8-10.6) k/uL Hgb (13.0-17.5) gm/dL Hct (39.0-53.0) % RDW (11.5-15.5) % Neutrophils # (1.3-7.7) k/uL Lymphocytes # (1.0-4.8) k/uL Monocytes # (0-1.0) k/uL Sodium (137-145) mmol/L Creatinine (0.66-1.25) mg/dL Glucose (74-99) mg/dL POC Glucose (mg/dL) 166 H 183 H 146 H (70-110) mg/dL 05/20/23 05/20/23 05/20/23 Range/Units 03:08 03:08 06:36 WBC 21.4 H (3.8-10.6) k/uL Hgb 12.2 L (13.0-17.5) gm/dL Hct 37.0 L (39.0-53.0) % RDW 16.0 H (11.5-15.5) % Neutrophils # 19.3 H (1.3-7.7) k/uL Lymphocytes # 0.8 L (1.0-4.8) k/uL Monocytes # 1.1 H (0-1.0) k/uL Sodium 135 L (137-145) mmol/L Creatinine 0.62 L (0.66-1.25) mg/dL Glucose 127 H (74-99) mg/dL POC Glucose (mg/dL) 134 H (70-110) mg/dL
[2023-05-20 10:57] VITALS: BMI 20.9
[2023-05-20 11:24] LABS: Glucose,Whole Blood 139 mg/dL (70-110)
[2023-05-20] MEDS ORDERED: MAGNESIUM SULFATE-D5W PMX 1 GM in DEXTROSE/WATER 1 100ML.BAG IVPB SCH (12:00)
--- NOTE | 2023-05-20 15:11 | CA ---
Transthoracic Echo Report Name: Laurent Perales Age: 67 Gender: M : 1955 Exam Date: 05/20/2023 07:47 Exam Location: [facility] Ht (in): 72 Wt (lb): 150 Ordering Physician: David Duke MD ([id number]) Attending/Referring Phys: Surveillance Observer Swati French RDCS Procedure CPT: Indications: ACS Cardiac Hx: Technical Quality: Good Contrast 1: Total Dose (mL): Contrast 2: Total Dose (mL): MEASUREMENTS (Male / Female) Normal Values 2D ECHO LV Diastolic Diameter PLAX 5.5 cm 4.2 - 5.9 / 3.9 - 5.3 cm LV Systolic Diameter PLAX 3.9 cm IVS Diastolic Thickness 1.1 cm 0.6 - 1.0 / 0.6 - 0.9 cm LVPW Diastolic Thickness 1.1 cm 0.6 - 1.0 / 0.6 - 0.9 cm LV Relative Wall Thickness 0.4 RV Internal Dim ED PLAX 3.3 cm LA Systolic Diameter LX 4.0 cm 3.0 - 4.0 / 2.7 - 3.8 cm LV Diastolic Volume MOD 4C 149.2 cm??? LV Systolic Volume MOD 4C 85.0 cm??? LV Ejection Fraction MOD 4C 43.0 % LV Cardiac Index MOD 4C 2220.3 cm???/min???m??? LV Diastolic Length 4C 8.7 cm LV Systolic Length 4C 7.6 cm LV Diastolic Volume MOD 2C 133.0 cm??? LV Systolic Volume MOD 2C 74.1 cm??? LV Ejection Fraction MOD 2C 44.3 % LV Cardiac Index MOD 2C 2037.1 cm???/min???m??? LV Diastolic Length 2C 8.6 cm LV Systolic Length 2C 7.4 cm LA Volume 54.0 cm??? 18 - 58 / 22 - 52 cm??? LA Volume Index 29.2 cm???/m??? 16 - 28 cm???/m??? M-MODE Aortic Root Diameter MM 3.3 cm MV E Point Septal Separation 0.8 cm AV Cusp Separation MM 2.1 cm DOPPLER AV Peak Velocity 136.4 cm/s AV Peak Gradient 7.4 mmHg MV Area PHT 2.2 cm??? Mitral E Point Velocity 52.4 cm/s Mitral A Point Velocity 52.9 cm/s Mitral E to A Ratio 1.0 MV Deceleration Time 338.6 ms MV E' Velocity 4.7 cm/s Mitral E to MV E' Ratio 11.2 TR Peak Velocity 223.1 cm/s TR Peak Gradient 19.9 mmHg Right Ventricular Systolic Press 24.9 mmHg FINDINGS Left Ventricle Left ventricular ejection fraction is estimated at 40-45 %. Left ventricular cavity size normal. Left ventricular wall thickness normal. Infero basel mid hypokinesis Right Ventricle Mild right ventricular dilatation. Right ventricular systolic pressure within normal limits. Right Atrium Normal right atrial size. Left Atrium Mildly increased left atrial volume. Mitral Valve Structurally normal mitral valve. Mild mitral regurgitation. Aortic Valve Trileaflet aortic valve. No aortic valve stenosis or regurgitation. Tricuspid Valve Structurally normal tricuspid valve. Mild tricuspid regurgitation. Pulmonic Valve Structurally normal pulmonic valve. No pulmonic regurgitation. Pericardium No pericardial effusion. Aorta Normal size aortic root and proximal ascending aorta. CONCLUSIONS Left ventricular ejection fraction 40-45% with inferior hypokinesis Mild mitral regurgitation Mild tricuspid regurgitation RVSP 25 Previewed by: Dr. Wilian Dong DO (Electronically Signed) Final Date: 20 May 2023 15:10
[2023-05-20] MEDS: HEPARIN SODIUM,PORCINE 5,000 UNIT/ML 1 ML VIAL SQ SCH (16:28)
[2023-05-20 16:46] LABS: Chol/HDL Ratio 2.62 Ratio; LDL Cholesterol,Calculated 70.3 mg/dL (0.0-131.0); VLDL Calculation 12.02 mg/dL (5.00-40.00)
[2023-05-20 16:49] LABS: Glucose,Whole Blood 143 mg/dL (70-110)
[2023-05-20 20:14] LABS: Glucose,Whole Blood 135 mg/dL (70-110)
[2023-05-20] MEDS: ATORVASTATIN 80 MG TAB PO SCH (20:20)
[2023-05-21] MEDS: HEPARIN SODIUM,PORCINE 5,000 UNIT/ML 1 ML VIAL SQ SCH ×4 (01:09→17:02)
--- NOTE | 2023-05-21 01:19 | PN ---
PROGRESS NOTE SUBJECTIVE: A 67-year-old gentleman that is admitted to hospital with acute anterior wall myocardial infarction. This morning, he is doing well free of symptoms. The patient underwent cardiac catheterization and angioplasty of right coronary artery. Echo results are pending at this time. An EKG shows sinus rhythm with evidence of recent inferior wall myocardial infarction. CURRENT MEDICATIONS: Include aspirin, Lipitor, Zestril, Lopressor, and Effient. OBJECTIVE: GENERAL: On exam, comfortable at rest. VITAL SIGNS: Stable. NECK: There is no jugular venous distention. Carotid upstroke is normal. There is no bruit. PELVIS: Groin is free of bleeding, bruit or hematoma. Foot pulses are intact. ASSESSMENT AND PLAN: Acute inferior wall myocardial infarction, status post catheterization and angioplasty. The patient is doing well, stable to be transferred out of ICU. UENICE / MILLER: [id number] /
[2023-05-21] MEDS: HYDROmorphone 1 MG/ML 1 ML SYRINGE IVP PRN ×3 (01:57→18:28)
[2023-05-21] MEDS: ALPRAZolam 0.25 MG TAB PO PRN ×2 (03:44→23:40)
[2023-05-21 04:27] LABS: Anisocytosis Slight; Basophils % (A) 0 %; Eosinophils % (A) 0 %; HCT 34.6 % (39.0-53.0); HGB 11.4 gm/dL (13.0-17.5); Lymphocytes # (A) 1.3 k/uL (1.0-4.8); Lymphocytes % (A) 10 %; MCH 27.4 pg (25.0-35.0); MCHC 32.9 g/dL (31.0-37.0); MCV 83.3 fL (80.0-100.0); Mean Platelet Volume 8.3; Monocytes # (A) 0.7 k/uL (0-1.0); Monocytes % (A) 6 %; Neutrophils # (A) 10.5 k/uL (1.3-7.7); Neutrophils % (A) 83 %; Platelet Count 193 k/uL (150-450); RBC 4.16 m/uL (4.30-5.90); RDW 16.2 % (11.5-15.5); WBC 12.7 k/uL (3.8-10.6)
[2023-05-21 04:43] LABS: ALT 41 U/L (4-49); AST 112 U/L (17-59); African American GFR (CKD) >90 (>60 ml/min/1.73 sqM); Albumin 3.7 g/dL (3.5-5.0); Alkaline Phosphatase 85 U/L (38-126); Anion Gap 7 mmol/L; Blood Urea Nitrogen 20 mg/dL (9-20); Carbon Dioxide 28 mmol/L (22-30); Chloride 101 mmol/L (98-107); Glucose 103 mg/dL (74-99); Magnesium 2.1 mg/dL (1.6-2.3); Non-African American GFR(CKD) >90 (>60 ml/min/1.73 sqM); Potassium 4.1 mmol/L (3.5-5.1); Sodium 136 mmol/L (137-145); Total Bilirubin 0.4 mg/dL (0.2-1.3); Total Protein 6.2 g/dL (6.3-8.2)
[2023-05-21] MEDS: INSULIN ASPART (NovoLOG) 100 UNIT/ML VIAL SQ SCH ×4 (06:42→21:12)
[2023-05-21] MEDS: ASPIRIN 81 MG PO SCH (08:51)
[2023-05-21] MEDS: lisinopriL 5 MG TAB PO SCH (08:51)
[2023-05-21] MEDS: TAMSULOSIN 0.4 MG CAP.ER.24H PO SCH (08:51)
[2023-05-21] MEDS: GABAPENTIN 400 MG CAP PO SCH ×3 (08:51→21:16)
[2023-05-21] MEDS: METOPROLOL TARTRATE 25 MG TAB PO SCH ×2 (08:53→21:16)
[2023-05-21] MEDS: LIDOCAINE 5% PATCH TOPICAL SCH (08:56)
[2023-05-21] MEDS: PRASUGREL 10 MG TAB PO SCH (08:57)
[2023-05-21] MEDS: PARoxetine 20 MG TAB PO SCH (09:06)
[2023-05-21] MEDS: PANTOPRAZOLE 40 MG TABLET PO SCH (09:06)
[2023-05-21 12:00] LABS: Glucose,Whole Blood 131 mg/dL (70-110)
[2023-05-21] MEDS: MORPHINE SULFATE ER 30 MG TABLET PO SCH ×2 (12:06→23:22)
--- NOTE | 2023-05-21 13:43 | P.PN ---
Subjective Progress Note Date: 05/21/23 Hospital Course: 67-year-old male with history of chronic low back pain on opiate therapy, depression presenting with chest pain. EKG independently interpreted, showed ST elevation in inferior leads. While in the ambulance, patient had cardiac arrest, had CPR. Rhythm was ventricular fibrillation, patient was shocked and had ROSC. Taken directly to production laborer. Initial WBC 8.6, hemoglobin 13.6, platelet 267, troponin 0.025, glucose 256, creatinine 0.77, bicarb 14, anion gap 22, magnesium 2. Patient had RCA stenosis, status post stent. Currently being monitored in the ICU. LVEF 40-45% with inferior basilar hypokinesis, RVSP 25. Subjective: Patient seen and examined at bedside. No acute events overnight. Still having sternal chest pain. Pertinent positives and negatives as discussed above, a complete review of systems was performed and all other systems are negative. Vitals Signs Reviewed. General: nontoxic, no distress, appears at stated age Derm: warm, dry Head: atraumatic, normocephalic, symmetric Eyes: EOMI, no lid lag, anicteric sclera Mouth: no lip lesion, mucus membranes moist Cardiovascular: S1S2 reg, no murmur, chest tenderness to palpation Lungs: CTA bilateral, no rhonchi, no rales , no accessory muscle use Abdominal: soft, nontender to palpation, no guarding, no appreciable organomegaly Ext: no gross muscle atrophy, no edema, no contractures Neuro: CN II-XI grossly intact, no focal neuro deficits Psych: Alert, oriented, appropriate affect Data Reviewed Today: Pertinent Labs: WBC 12.7, hemoglobin 11.4, sodium 136, potassium 4.1, magnesium 2.1, blood sugars range between 103-143 Imaging: Echocardiogram report reviewed, shows LVEF 40-45% with inferior basilar hypokinesis, RVSP 25 Assessment and Plan: Active: Inferior STEMI status post stent CAD Ischemic systolic cardiomyopathy, LVEF 40-45% Status post V. fib Cardiac arrest Prediabetes, A1c 6 Leukocytosis, likely reactive, resolving GERD Hypomagnesemia, resolved -Cardiology following -Continue telemetry, continue monitor in the ICU -On aspirin 81 mg, atorvastatin 80 mg, effient 10 mg daily -on lisinopril 5 mg daily, metoprolol 25 mg twice a day -On lidocaine patches for chest pain at the site of CPR -on home narcotics, was also started on Dilaudid 1 mg IV every 6 hours as needed for breakthrough pain -Continue sliding scale insulin, monitor for hypoglycemia -on pantoprazole 40 mg daily -Repeat CBC and BMP and magnesium tomorrow Chronic: Chronic low back pain on opiate therapy Depression BPH DVT ppx: Subcu heparin Code status: Full code Anticipated discharge place: Likely home Anticipated discharge time: Pending clinical course Objective - Vital Signs Vital signs: Vital Signs Temp 98.1 F 05/21/23 12:00 Pulse 58 L 05/21/23 12:00 Resp 17 05/21/23 12:00 BP 93/63 05/21/23 12:00 Pulse Ox 96 05/21/23 12:00 FiO2 Intake & Output 05/20/23 05/21/23 05/21/23 18:59 06:59 18:59 Intake Total 650 350 Output Total 240 Balance 410 350 Weight 70 kg 72.8 kg Intake: Oral 650 350 Output: Urine 240 Other: Voiding Method Urinal Urinal Urinal # Voids 1 2 1 - Labs CBC & Chem 7: 05/21/23 03:25 05/21/23 03:25 Labs: Abnormal Lab Results - Last 24 Hours (Table) 05/20/23 05/20/23 05/21/23 Range/Units 16:48 20:12 03:25 WBC (3.8-10.6) k/uL RBC (4.30-5.90) m/uL Hgb (13.0-17.5) gm/dL Hct (39.0-53.0) % RDW (11.5-15.5) % Neutrophils # (1.3-7.7) k/uL Sodium 136 L (137-145) mmol/L Glucose 103 H (74-99) mg/dL POC Glucose (mg/dL) 143 H 135 H (70-110) mg/dL AST 112 H (17-59) U/L Total Protein 6.2 L (6.3-8.2) g/dL 05/21/23 05/21/23 Range/Units 03:25 11:58 WBC 12.7 H (3.8-10.6) k/uL RBC 4.16 L (4.30-5.90) m/uL Hgb 11.4 L (13.0-17.5) gm/dL Hct 34.6 L (39.0-53.0) % RDW 16.2 H (11.5-15.5) % Neutrophils # 10.5 H (1.3-7.7) k/uL Sodium (137-145) mmol/L Glucose (74-99) mg/dL POC Glucose (mg/dL) 131 H (70-110) mg/dL AST (17-59) U/L Total Protein (6.3-8.2) g/dL
--- NOTE | 2023-05-21 17:21 | P.PN ---
Subjective Progress Note Date: 05/21/23 The patient is a pleasant 67-year-old gentleman with hypertension and dyslipidemia presented to the emergency department complaining of chest discomfort. He was in his usual state of health until about a few hours when he started experiencing discomfort in the middle of the chest as a pressure on the chest with radiation to the left arm. No associated symptoms of shortness of breath or dizziness or lightheadedness or any feeling of heart racing or fluttering or any presyncope or syncope. His brought the patient to the emergency department where he underwent further workup including an EKG showing inferior ST elevation myocardial infarction. Subsequently underwent an emergent heart catheterization and was found to have acute total occlusion of the RCA distally was extremely large thrombus burden. The patient underwent successful PCI of the RCA with a good angiographic results by the end. After aspiration thrombectomy the thrombus burden has decreased but continues to be there. The patient was placed on Aggrastat and he was sent to the intensive care unit. He was chest pain-free VT has been maintaining normal sinus mechanism. Please note that on the way to the hospital by ambulance the patient did have an episode of cardiac arrest was V. fib and he was cardioverted. Since then he had no more episodes of ventricular fibrillation or ventricular tachycardia. The examinatio n is remarkable for regular rhythm and systolic murmur at the right and left upper sternal border with a clear breathing sounds bilaterally and no lower extremities edema noted. He does have some blood in the right ear after the cardioversion 05/21/2023 Patient is doing well from cardiac vessel standpoint. His right groin appears intact with no swelling or signs of bleeding. He denies any chest pain chest pressure or shortness of breath. He complains of chest wall pain because of chest compressions. His labs and vitals are within normal limits. Physical examination Normal S1 and S2, no cardiac murmurs Good air entry in bilateral lung burnett Chest is tender to palpation due to chest compressions Intact bilateral lower extremity pulses. Right femoral access site appears intact with no swelling or edema or bleeding No focal neurological deficit, alert oriented Assessment Acute inferior ST elevation myocardial infarction Cardiac arrest in the setting of STEMI Status post PCI of the RCA Ischemic cardiac myopathy with EF of 40-45%, euvolemic History of smoking Plan Continue dual antiplatelet therapy along with high intensity statin Continue lisinopril 5 mg, metoprolol 25 mg daily Plan for outpatient follow-up with Dr. Warren Lidocaine patch for chest wall pain Patient should be ready to be discharged from cardiovascular standpoint 11. Objective - Vital Signs Vital signs: Vital Signs Temp 98.1 F 05/21/23 12:00 Pulse 58 L 05/21/23 12:00 Resp 17 05/21/23 12:00 BP 93/63 05/21/23 12:00 Pulse Ox 96 05/21/23 12:00 FiO2 Intake & Output 05/20/23 05/21/23 05/21/23 18:59 06:59 18:59 Intake Total 650 350 Output Total 240 Balance 410 350 Weight 70 kg 72.8 kg Intake: Oral 650 350 Output: Urine 240 Other: Voiding Method Urinal Urinal Urinal # Voids 1 2 1 - Labs CBC & Chem 7: 05/21/23 03:25 05/21/23 03:25 Labs: Abnormal Lab Results - Last 24 Hours (Table) 05/20/23 05/21/23 05/21/23 Range/Units 20:12 03:25 03:25 WBC 12.7 H (3.8-10.6) k/uL RBC 4.16 L (4.30-5.90) m/uL Hgb 11.4 L (13.0-17.5) gm/dL Hct 34.6 L (39.0-53.0) % RDW 16.2 H (11.5-15.5) % Neutrophils # 10.5 H (1.3-7.7) k/uL Sodium 136 L (137-145) mmol/L Glucose 103 H (74-99) mg/dL POC Glucose (mg/dL) 135 H (70-110) mg/dL AST 112 H (17-59) U/L Total Protein 6.2 L (6.3-8.2) g/dL 05/21/23 Range/Units 11:58 WBC (3.8-10.6) k/uL RBC (4.30-5.90) m/uL Hgb (13.0-17.5) gm/dL Hct (39.0-53.0) % RDW (11.5-15.5) % Neutrophils # (1.3-7.7) k/uL Sodium (137-145) mmol/L Glucose (74-99) mg/dL POC Glucose (mg/dL) 131 H (70-110) mg/dL AST (17-59) U/L Total Protein (6.3-8.2) g/dL
[2023-05-21 21:06] LABS: Glucose,Whole Blood 149 mg/dL (70-110)
[2023-05-21] MEDS: ATORVASTATIN 80 MG TAB PO SCH (21:16)
[2023-05-21] MEDS: MUPIROCIN 2% OINT 22 GM TUBE TOPICAL SCH (22:13)
[2023-05-22] MEDS: HYDROmorphone 1 MG/ML 1 ML SYRINGE IVP PRN ×4 (00:44→18:02)
[2023-05-22] MEDS: HEPARIN SODIUM,PORCINE 5,000 UNIT/ML 1 ML VIAL SQ SCH ×3 (00:44→16:44)
[2023-05-22 04:53] LABS: Anisocytosis Slight; Basophils % (A) 0 %; Eosinophils # (A) 0.1 k/uL (0-0.7); Eosinophils % (A) 1 %; HCT 32.5 % (39.0-53.0); HGB 11.1 gm/dL (13.0-17.5); Lymphocytes # (A) 1.6 k/uL (1.0-4.8); Lymphocytes % (A) 16 %; MCH 28.7 pg (25.0-35.0); MCHC 34.2 g/dL (31.0-37.0); MCV 83.8 fL (80.0-100.0); Mean Platelet Volume 8.2; Monocytes # (A) 0.6 k/uL (0-1.0); Monocytes % (A) 6 %; Neutrophils # (A) 7.7 k/uL (1.3-7.7); Neutrophils % (A) 76 %; Platelet Count 171 k/uL (150-450); RBC 3.87 m/uL (4.30-5.90); RDW 16.2 % (11.5-15.5); WBC 10.1 k/uL (3.8-10.6)
[2023-05-22 05:09] LABS: African American GFR (CKD) >90 (>60 ml/min/1.73 sqM); Anion Gap 5 mmol/L; Blood Urea Nitrogen 20 mg/dL (9-20); Calcium 8.7 mg/dL (8.4-10.2); Carbon Dioxide 27 mmol/L (22-30); Chloride 102 mmol/L (98-107); Glucose 96 mg/dL (74-99); Magnesium 2.1 mg/dL (1.6-2.3); Non-African American GFR(CKD) >90 (>60 ml/min/1.73 sqM); Potassium 3.9 mmol/L (3.5-5.1); Sodium 134 mmol/L (137-145)
[2023-05-22 06:28] LABS: Glucose,Whole Blood 134 mg/dL (70-110)
[2023-05-22] MEDS: INSULIN ASPART (NovoLOG) 100 UNIT/ML VIAL SQ SCH ×4 (06:29→21:21)
[2023-05-22] MEDS: PANTOPRAZOLE 40 MG TABLET PO SCH (06:34)
[2023-05-22] MEDS: GABAPENTIN 400 MG CAP PO SCH ×3 (09:05→20:11)
[2023-05-22] MEDS: ASPIRIN 81 MG PO SCH (09:05)
[2023-05-22] MEDS: lisinopriL 5 MG TAB PO SCH (09:05)
[2023-05-22] MEDS: TAMSULOSIN 0.4 MG CAP.ER.24H PO SCH (09:05)
[2023-05-22] MEDS: PARoxetine 20 MG TAB PO SCH (09:05)
[2023-05-22] MEDS: METOPROLOL TARTRATE 25 MG TAB PO SCH ×2 (09:05→20:11)
[2023-05-22] MEDS: PRASUGREL 10 MG TAB PO SCH (09:06)
[2023-05-22] MEDS: LIDOCAINE 5% PATCH TOPICAL SCH (09:06)
[2023-05-22] MEDS: MORPHINE SULFATE ER 30 MG TABLET PO SCH ×2 (09:11→20:10)
--- NOTE | 2023-05-22 11:43 | P.PN ---
Subjective Progress Note Date: 05/22/23 Hospital Course: 67-year-old male with history of chronic low back pain on opiate therapy, depr ession presenting with chest pain. EKG independently interpreted, showed ST elevation in inferior leads. While in the ambulance, patient had cardiac arrest, had CPR. Rhythm was ventricular fibrillation, patient was shocked and had ROSC. Taken directly to labor supervisor. Initial WBC 8.6, hemoglobin 13.6, platelet 267, troponin 0.025, glucose 256, creatinine 0.77, bicarb 14, anion gap 22, magnesium 2. Patient had RCA stenosis, status post stent. Currently being monitored in the ICU. LVEF 40-45% with inferior basilar hypokinesis, RVSP 25. Subjective: Patient seen and examined at bedside. No acute events overnight. Patient has significant chest pain at the site of chest compressions. He claims that each time he moves his body a little bit he has severe sharp pain in his chest often causing him to not be able to take deep breaths at all. He is extremely worried about going home as he is going to come right back for extreme chest pain. Pertinent positives and negatives as discussed above, a complete review of systems was performed and all other systems are negative. Vitals Signs Reviewed. General: nontoxic, no distress, appears at stated age Derm: warm, dry Head: atraumatic, normocephalic, symmetric Eyes: EOMI, no lid lag, anicteric sclera Mouth: no lip lesion, mucus membranes moist Cardiovascular: S1S2 reg, no murmur, chest tenderness to palpation Lungs: CTA bilateral, no rhonchi, no rales , no accessory muscle use Abdominal: soft, nontender to palpation, no guarding, no appreciable organomegaly Ext: no gross muscle atrophy, no edema, no contractures Neuro: CN II-XI grossly intact, no focal neuro deficits Psych: Alert, oriented, appropriate affect Data Reviewed Today: Pertinent Labs: WBC 10.1, hemoglobin 11.1, sodium 134, potassium 3.9, magnesium 2.1, creatinine 0.70, blood sugars range between 96-149 Imaging: No new imaging Assessment and Plan: Active: Inferior STEMI status post stent CAD Ischemic systolic cardiomyopathy, LVEF 40-45% Status post V. fib Cardiac arrest Status post CPR Prediabetes, A1c 6 Leukocytosis, likely reactive, resolved GERD Hypomagnesemia, resolved -Cardiology following, can be discharged, outpatient follow-up -Continue telemetry -Patient continues to have severe debilitating chest pain secondary to CPR, continue topical lidocaine patch 5% daily -He is on several high-dose narcotics at home, his pain threshold is low -Continue home narcotics, also on IV Dilaudid 4 mg every 6 hours as needed -Educated patient that he may take a few weeks for the chest pain to completely resolve -On aspirin 81 mg, atorvastatin 80 mg, effient 10 mg daily -on lisinopril 5 mg daily, metoprolol 25 mg twice a day -Continue sliding scale insulin, monitor for hypoglycemia -on pantoprazole 40 mg daily Chronic: Chronic low back pain on opiate therapy Depression BPH DVT ppx: Subcu heparin Code status: Full code Anticipated discharge place: home Anticipated discharge time: Likely tomorrow Objective - Vital Signs Vital signs: Vital Signs Temp 98.8 F 05/22/23 04:00 Pulse 60 05/22/23 04:00 Resp 16 05/22/23 04:00 BP 110/69 05/22/23 04:00 Pulse Ox 96 05/22/23 04:00 FiO2 Intake & Output 05/21/23 05/22/23 05/22/23 18:59 06:59 18:59 Intake Total 250 Balance 250 Weight 72.9 kg Intake: Oral 250 Other: Voiding Method Toilet Toilet Toilet # Voids 1 2 1 - Labs CBC & Chem 7: 05/22/23 04:03 05/22/23 04:03 Labs: Abnormal Lab Results - Last 24 Hours (Table) 05/21/23 05/21/23 05/22/23 Range/Units 11:58 21:05 04:03 RBC 3.87 L (4.30-5.90) m/uL Hgb 11.1 L (13.0-17.5) gm/dL Hct 32.5 L (39.0-53.0) % RDW 16.2 H (11.5-15.5) % Sodium (137-145) mmol/L POC Glucose (mg/dL) 131 H 149 H (70-110) mg/dL 05/22/23 05/22/23 Range/Units 04:03 06:27 RBC (4.30-5.90) m/uL Hgb (13.0-17.5) gm/dL Hct (39.0-53.0) % RDW (11.5-15.5) % Sodium 134 L (137-145) mmol/L POC Glucose (mg/dL) 134 H (70-110) mg/dL
[2023-05-22] MEDS: MUPIROCIN 2% OINT 22 GM TUBE TOPICAL SCH ×3 (11:47→21:22)
[2023-05-22 12:17] LABS: Glucose,Whole Blood 137 mg/dL (70-110)
[2023-05-22] MEDS: ACETAMINOPHEN TAB 325 MG TAB PO PRN (13:02)
--- NOTE | 2023-05-22 13:32 | XR ---
EXAMINATION TYPE: XR chest 1V portable DATE OF EXAM: 05/22/2023 COMPARISON: NONE HISTORY: Chest pain and shortness of breath. TECHNIQUE: Single frontal view of the chest is obtained. FINDINGS: There is no focal air space opacity, pleural effusion, or pneumothorax seen. The cardiac silhouette size is within normal limits. The osseous structures are intact. IMPRESSION: No acute process.
--- NOTE | 2023-05-22 13:45 | P.PN ---
Subjective Progress Note Date: 05/22/23 The patient is a pleasant 67-year-old gentleman with hypertension and dyslipidemia presented to the emergency department complaining of chest discomfort. He was in his usual state of health until about a few hours when he started experiencing discomfort in the middle of the chest as a pressure on the chest with radiation to the left arm. No associated symptoms of shortness of breath or dizziness or lightheadedness or any feeling of heart racing or fluttering or any presyncope or syncope. His brought the patient to the emergency department where he underwent further workup including an EKG showing inferior ST elevation myocardial infarction. Subsequently underwent an emergent heart catheterization and was found to have acute total occlusion of the RCA distally was extremely large thrombus burden. The patient underwent successful PCI of the RCA with a good angiographic results by the end. After aspiration thrombectomy the thrombus burden has decreased but continues to be there. The patient was placed on Aggrastat and he was sent to the intensive care unit. He was chest pain-free VT has been maintaining normal sinus mechanism. Please note that on the way to the hospital by ambulance the patient did have an episode of cardiac arrest was V. fib and he was cardioverted. Since then he had no more episodes of ventricular fibrillation or ventricular tachycardia. The examinatio n is remarkable for regular rhythm and systolic murmur at the right and left upper sternal border with a clear breathing sounds bilaterally and no lower extremities edema noted. He does have some blood in the right ear after the cardioversion 05/21/2023 Patient is doing well from cardiac vessel standpoint. His right groin appears intact with no swelling or signs of bleeding. He denies any chest pain chest pressure or shortness of breath. He complains of chest wall pain because of chest compressions. His labs and vitals are within normal limits. 05/22/23 This morning patient is coming no significant chest pain that gets worse with breathing. This is most likely related to his muscular skeletal pain from chest compression. We will obtain a chest x-ray to see if he has any rib fractures. Obtain a 12-lead ECG to see if patient is having any pericarditis changes. On exam patient does not have any rubs. Patient spiked a Fever of 102 today Physical examination Normal S1 and S2, no cardiac murmurs Good air entry in bilateral lung burnett Chest is tender to palpation , no rubs, no murmur, normal s1 and s2 regular Intact bilateral lower extremity pulses. Right femoral access site appears intact with no swelling or edema or bleeding No focal neurological deficit, alert oriented Assessment Acute inferior ST elevation myocardial infarction Cardiac arrest in the setting of STEMI s/p chest compressions Status post PCI of the RCA Ischemic cardiac myopathy with EF of 40-45%, euvolemic History of smoking Plan Continue dual antiplatelet therapy along with high intensity statin Continue lisinopril 5 mg, metoprolol 25 mg daily Plan for outpatient follow-up with Dr. Warren Lidocaine patch for chest wall pain Workup for fever, and a chest x-ray to rule out any cardiac fractures. ECG to see if patient has any pericarditis related changes. Objective - Vital Signs Vital signs: Vital Signs Temp 102.1 F H 05/22/23 12:00 Pulse 93 05/22/23 12:00 Resp 21 05/22/23 12:00 BP 134/82 05/22/23 12:00 Pulse Ox 94 L 05/22/23 12:00 FiO2 Intake & Output 05/21/23 05/22/23 05/22/23 18:59 06:59 18:59 Intake Total 250 Balance 250 Weight 72.9 kg Intake: Oral 250 Other: Voiding Method Toilet Toilet Toilet # Voids 1 2 1 - Labs CBC & Chem 7: 05/22/23 04:03 05/22/23 04:03 Labs: Abnormal Lab Results - Last 24 Hours (Table) 05/21/23 05/22/23 05/22/23 Range/Units 21:05 04:03 04:03 RBC 3.87 L (4.30-5.90) m/uL Hgb 11.1 L (13.0-17.5) gm/dL Hct 32.5 L (39.0-53.0) % RDW 16.2 H (11.5-15.5) % Sodium 134 L (137-145) mmol/L POC Glucose (mg/dL) 149 H (70-110) mg/dL 05/22/23 05/22/23 Range/Units 06:27 12:15 RBC (4.30-5.90) m/uL Hgb (13.0-17.5) gm/dL Hct (39.0-53.0) % RDW (11.5-15.5) % Sodium (137-145) mmol/L POC Glucose (mg/dL) 134 H 137 H (70-110) mg/dL
[2023-05-22 16:08] LABS: Glucose,Whole Blood 127 mg/dL (70-110)
[2023-05-22] MEDS: ATORVASTATIN 80 MG TAB PO SCH (20:12)
[2023-05-22 20:21] LABS: Glucose,Whole Blood 167 mg/dL (70-110)
[2023-05-23] MEDS: HEPARIN SODIUM,PORCINE 5,000 UNIT/ML 1 ML VIAL SQ SCH ×4 (01:00→23:28)
[2023-05-23] MEDS: HYDROmorphone 1 MG/ML 1 ML SYRINGE IVP PRN ×4 (01:01→20:13)
[2023-05-23 06:10] LABS: Basophils % (A) 0 %; Eosinophils % (A) 0 %; HCT 34.2 % (39.0-53.0); HGB 11.5 gm/dL (13.0-17.5); Lymphocytes # (A) 0.5 k/uL (1.0-4.8); Lymphocytes % (A) 2 %; MCH 27.6 pg (25.0-35.0); MCHC 33.7 g/dL (31.0-37.0); MCV 81.9 fL (80.0-100.0); Mean Platelet Volume 8.8; Monocytes # (A) 0.9 k/uL (0-1.0); Monocytes % (A) 5 %; Neutrophils % (A) 92 %; Platelet Count 164 k/uL (150-450); RBC 4.18 m/uL (4.30-5.90); RDW 15.8 % (11.5-15.5); WBC 19.6 k/uL (3.8-10.6)
[2023-05-23] MEDS: INSULIN ASPART (NovoLOG) 100 UNIT/ML VIAL SQ SCH ×4 (06:47→20:18)
[2023-05-23 06:48] LABS: Glucose,Whole Blood 146 mg/dL (70-110)
[2023-05-23] MEDS: PANTOPRAZOLE 40 MG TABLET PO SCH (06:51)
[2023-05-23 07:02] LABS: African American GFR (CKD) >90 (>60 ml/min/1.73 sqM); Anion Gap 8 mmol/L; Blood Urea Nitrogen 20 mg/dL (9-20); Calcium 8.2 mg/dL (8.4-10.2); Carbon Dioxide 26 mmol/L (22-30); Chloride 91 mmol/L (98-107); Glucose 124 mg/dL (74-99); Magnesium 1.7 mg/dL (1.6-2.3); Non-African American GFR(CKD) >90 (>60 ml/min/1.73 sqM); Potassium 3.7 mmol/L (3.5-5.1); Sodium 125 mmol/L (137-145)
[2023-05-23] MEDS ORDERED: POTASSIUM CHLORIDE ER 20 MEQ TAB.ER PO SCH (09:00)
[2023-05-23] MEDS: GABAPENTIN 400 MG CAP PO SCH ×3 (09:02→20:08)
[2023-05-23] MEDS: ASPIRIN 81 MG PO SCH (09:02)
[2023-05-23] MEDS: METOPROLOL TARTRATE 25 MG TAB PO SCH ×2 (09:02→20:08)
[2023-05-23] MEDS: TAMSULOSIN 0.4 MG CAP.ER.24H PO SCH (09:02)
[2023-05-23] MEDS: ACETAMINOPHEN TAB 325 MG TAB PO PRN ×2 (09:02→17:00)
[2023-05-23] MEDS: LIDOCAINE 4% PATCH TOPICAL SCH (09:02)
[2023-05-23] MEDS: lisinopriL 5 MG TAB PO SCH (09:02)
[2023-05-23] MEDS: MUPIROCIN 2% OINT 22 GM TUBE TOPICAL SCH ×3 (09:08→20:31)
[2023-05-23] MEDS: PRASUGREL 10 MG TAB PO SCH (09:08)
[2023-05-23] MEDS: MORPHINE SULFATE ER 30 MG TABLET PO SCH ×2 (09:08→20:08)
[2023-05-23] MEDS: PARoxetine 20 MG TAB PO SCH (09:08)
[2023-05-23 11:06] LABS: African American GFR (CKD) >90 (>60 ml/min/1.73 sqM); Anion Gap 10 mmol/L; Blood Urea Nitrogen 18 mg/dL (9-20); Calcium 8.1 mg/dL (8.4-10.2); Carbon Dioxide 23 mmol/L (22-30); Chloride 91 mmol/L (98-107); Glucose 116 mg/dL (74-99); Non-African American GFR(CKD) >90 (>60 ml/min/1.73 sqM); Potassium 3.5 mmol/L (3.5-5.1); Sodium 124 mmol/L (137-145)
--- NOTE | 2023-05-23 11:14 | US ---
EXAMINATION TYPE: US venous doppler duplex UE LT DATE OF EXAM: 05/23/2023 COMPARISON: NONE CLINICAL INDICATION: Male, 67 years old with history of thrombophelbitis left AC; Patient had recent NE with stent placement - redness with scab at left antecubital fossa - patient denies any other sign s or symptoms at this time. SIDE PERFORMED: left Right Arm: not assessed Left Arm: Negative for DVT; acute superficial clot in the antecubital cephalic vein. IMPRESSION: 1. No evidence of deep venous thrombosis. 2. Superficial thrombus within the antecubital vein of the left arm.
[2023-05-23 11:27] LABS: Glucose,Whole Blood 126 mg/dL (70-110)
[2023-05-23 13:07] LABS: Appearance,Urine Clear (Clear); Bilirubin,Urine Negative (Negative); Blood,Urine Large (Negative); Color,Urine Light Yellow; Glucose,Urine (UA) Negative (Negative); Ketones,Urine 1+ (Negative); Leukocyte Esterase,Urine Negative (Negative); Mucus,Urine Rare /hpf; Nitrite,Urine Negative (Negative); PH, Urine 6.5 (5.0-8.0); Protein,Urine 1+ (Negative); RBC,Urine 56 /hpf (0-5); Specific Gravity,Urine 1.015 (1.001-1.035); Urobilinogen,Urine <2.0 mg/dL (<2.0); WBC,Urine 3 /hpf (0-5)
[2023-05-23] MEDS ORDERED: POTASSIUM CHLORIDE ER 20 MEQ TAB.ER PO STA (13:26)
[2023-05-23] MEDS: SULFAMETHOX-TMP 800-160MG 1 EACH TAB PO SCH ×2 (13:38→20:30)
[2023-05-23 16:16] LABS: Glucose,Whole Blood 171 mg/dL (70-110)
--- NOTE | 2023-05-23 17:43 | P.PN ---
Subjective Progress Note Date: 05/23/23 Patient is a 67-year-old male with chronic back pain on opiate therapy, depression, and osteoarthritis who presented to the emergency department with complaints of chest pain. Patient was brought in via EMS unwell and [facility] hospital had a brief ventricular fibrillation arrest requiring CPR and defibrillation. On arrival patient was noted have an ST segment elevated myocardial infarction. EKG revealed ST segment elevation in the inferior leads. Initial laboratory analysis on arrival was remarkable for glucose of 256. Initial chest x-ray showed no acute cardiopulmonary process. Patient underwent an emergent heart cath which showed a total occlusion of the RCA with large thrombus burden which was successfully stented with good angiographic results. He was subsequently placed on aspirin, statin, and Effient. Patient was admitted to the ICU. A cardiogram demonstrated an ejection fraction of 40-45% with inferior hypokinesis.. Patient was being evaluated for possible discharge when he spiked a fever of 102.1. At that time chest x-ray showed no acute process, urinalysis negative, EKG without signs of pericarditis. Patient seen and examined at bedside. Patient seen and examined at bedside. He complains of chest pain or previous CPR was performed. He is also having some pain in the left antecubital fossa. He denies any shortness of breath, nausea, vomiting. Vital signs reviewed General: nontoxic, no distress, appears at stated age Ur: Left antecubital fossa with area of thrombosed vein and surrounding cellulitis Cardiovascular: S1S2 reg, no murmur, positive posterior tibial pulse bilateral, Lungs: CTA bilateral, no rhonchi, no rales , no accessory muscle use Abdominal: soft, nontender to palpation, no guarding, no appreciable organomegaly Ext: no gross muscle atrophy, no edema b/l lower extremities, no contractures Neuro: CN II-XI grossly intact, no focal neuro deficits Psych: Alert, oriented, appropriate affect Assessment/Plan: Inferior ST segment elevated myocardial infarction status post PCI to the RCA S/P V. fib arrest. Cardiomyopathy with ejection fraction 40-45% Acute on chronic pain Newly discovered prediabetes with A1c 6 - Aspirin 81 mg daily, Effient 10 mg Lipitor 40 mg daily - Metoprolol 25 mg twice daily, lisinopril 5 mg daily - Morphine sulfate 30 mg every 12 hours, oxycodone 15 mg twice daily, lidocaine 4% patch daily, Dilaudid 1 mg every 6 hours as needed for pain -Continue with sliding scale insulin, follow blood sugars, consider Jardiance upon discharge given reduced ejection fraction -Cardiology no reviewed dual antiplatelet therapy and high intensity statin. Fever Suspect due to superficial thromohelbitis of LEft AC with c=surrounding cellulitis -Start Bactrim DS 1 tablet oral twice daily -Follow up repeat CBC in a.m. -Check ultrasound of left upper extremity this was ordered and reviewed which showed superficial thrombus within the antecubital vein with no evidence of DVT -Influenza A/B/RSV/COVID-19 PCR negative -Chest x-ray negative -CRP mildly elevated -EKG without overt signs of pericarditis -Check urinalysis Hyponatremia undetermined etiology -Possible dehydration due to poor oral intake SIADH due to severe pain. Check urine sodium, urine osmolality, serum osmolality, and serum sodium. Low sodium level was reconfirmed with stat basic metabolic profile - check post void residual -Consult nephrology -Start normal saline at 75 mL/h GERD - protonix 40 mg daily Hypomagnesemia, resolved Imaging: Chest x-ray is no acute process Data Review: Labs reviewed from today include CBC and basic metabolic profile and magnesium which are remarkable for white blood cell count 19.6, hemoglobin 11.5, sodium 125, magnesium 1.7. Influenza A/B/RSV/COVID-19 PCR were negative DVT prophylaxis: Heparin Discussed with: Anticipated discharge date: Anticipated discharge place: This dictation was prepared using [employer] voice recognition software. Though every attempt is made to correct errors during dictation some may still exist. Objective - Vital Signs Vital signs: Vital Signs Temp 98.9 F 05/23/23 04:00 Pulse 79 05/23/23 04:00 Resp 19 05/23/23 04:00 BP 122/82 05/23/23 04:00 Pulse Ox 98 05/23/23 04:00 FiO2 Intake & Output 05/22/23 05/23/23 05/23/23 18:59 06:59 18:59 Intake Total 500 Output Total 400 Balance 500 -400 Weight 75.5 kg Intake: Oral 500 Output: Urine 400 Other: Voiding Method Toilet Urinal Bedpan # Voids 2 - Labs CBC & Chem 7: 05/23/23 05:41 05/23/23 10:41 Labs: Abnormal Lab Results - Last 24 Hours (Table) 05/22/23 05/22/23 05/22/23 Range/Units 12:15 15:18 16:06 WBC (3.8-10.6) k/uL RBC (4.30-5.90) m/uL Hgb (13.0-17.5) gm/dL Hct (39.0-53.0) % RDW (11.5-15.5) % Neutrophils # (1.3-7.7) k/uL Lymphocytes # (1.0-4.8) k/uL Sodium (137-145) mmol/L Chloride (98-107) mmol/L Glucose (74-99) mg/dL POC Glucose (mg/dL) 137 H 127 H (70-110) mg/dL Calcium (8.4-10.2) mg/dL C-Reactive Protein 3.0 H (<1.0) mg/dL 05/22/23 05/23/23 05/23/23 Range/Units 20:20 05:41 05:41 WBC 19.6 H (3.8-10.6) k/uL RBC 4.18 L (4.30-5.90) m/uL Hgb 11.5 L (13.0-17.5) gm/dL Hct 34.2 L (39.0-53.0) % RDW 15.8 H (11.5-15.5) % Neutrophils # 18.0 H (1.3-7.7) k/uL Lymphocytes # 0.5 L (1.0-4.8) k/uL Sodium 125 L (137-145) mmol/L Chloride 91 L (98-107) mmol/L Glucose 124 H (74-99) mg/dL POC Glucose (mg/dL) 167 H (70-110) mg/dL Calcium 8.2 L (8.4-10.2) mg/dL C-Reactive Protein (<1.0) mg/dL 05/23/23 Range/Units 06:46 WBC (3.8-10.6) k/uL RBC (4.30-5.90) m/uL Hgb (13.0-17.5) gm/dL Hct (39.0-53.0) % RDW (11.5-15.5) % Neutrophils # (1.3-7.7) k/uL Lymphocytes # (1.0-4.8) k/uL Sodium (137-145) mmol/L Chloride (98-107) mmol/L Glucose (74-99) mg/dL POC Glucose (mg/dL) 146 H (70-110) mg/dL Calcium (8.4-10.2) mg/dL C-Reactive Protein (<1.0) mg/dL
--- NOTE | 2023-05-23 18:29 | P.PN ---
Subjective Progress Note Date: 05/23/23 The patient is a pleasant 67-year-old gentleman with hypertension and dyslipidemia presented to the emergency department complaining of chest discomfort. He was in his usual state of health until about a few hours when he started experiencing discomfort in the middle of the chest as a pressure on the chest with radiation to the left arm. No associated symptoms of shortness of breath or dizziness or lightheadedness or any feeling of heart racing or fluttering or any presyncope or syncope. His brought the patient to the emergency department where he underwent further workup including an EKG showing inferior ST elevation myocardial infarction. Subsequently underwent an emergent heart catheterization and was found to have acute total occlusion of the RCA distally was extremely large thrombus burden. The patient underwent successful PCI of the RCA with a good angiographic results by the end. After aspiration thrombectomy the thrombus burden has decreased but continues to be there. The patient was placed on Aggrastat and he was sent to the intensive care unit. He was chest pain-free VT has been maintaining normal sinus mechanism. Please note that on the way to the hospital by ambulance the patient did have an episode of cardiac arrest was V. fib and he was cardioverted. Since then he had no more episodes of ventricular fibrillation or ventricular tachycardia. The examinatio n is remarkable for regular rhythm and systolic murmur at the right and left upper sternal border with a clear breathing sounds bilaterally and no lower extremities edema noted. He does have some blood in the right ear after the cardioversion 05/21/2023 Patient is doing well from cardiac vessel standpoint. His right groin appears intact with no swelling or signs of bleeding. He denies any chest pain chest pressure or shortness of breath. He complains of chest wall pain because of chest compressions. His labs and vitals are within normal limits. 05/22/23 This morning patient is coming no significant chest pain that gets worse with breathing. This is most likely related to his muscular skeletal pain from chest compression. We will obtain a chest x-ray to see if he has any rib fractures. Obtain a 12-lead ECG to see if patient is having any pericarditis changes. On exam patient does not have any rubs. Patient spiked a Fever of 102 today 05/23/2023 This morning patient continues to have fever and chills. His left antecubital vein IV appears to be infected with some concerns of cellulitis and superficial thrombophlebitis. No evidence of DVT was noticed on ultrasound. Chest x-ray does not show any acute cardiac permit process. No evidence of rib fractures. Interestingly patient's sodium is trending down with sodium of 125. This could be related to pain related SIADH. Primary team is working it up. Patient is also getting antibiotics for his fever of unknown etiology. Physical examination Febrile Normal S1 and S2, no cardiac murmurs Good air entry in bilateral lung [place] Chest is tender to palpation , no rubs, no murmur, normal s1 and s2 regular Intact bilateral lower extremity pulses. 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 No evidence of rib fracture. No evidence of pericarditis on ECG and physical examination. PE and DVT could be a differential fever of unknown origin. If no source is found with no recovery after antibiotics, would recommend getting a CTA PE protocol. Fever may be related to left antecubital superficial femoral phlebitis but seems out of proportion. Plan for outpatient follow-up with Dr. Warren Lidocaine patch for chest wall pain Objective - Vital Signs Vital signs: Vital Signs Temp 100.3 F H 05/23/23 16:00 Pulse 66 05/23/23 12:00 Resp 17 05/23/23 16:00 BP 128/79 05/23/23 16:00 Pulse Ox 99 05/23/23 16:00 FiO2 Intake & Output 05/22/23 05/23/23 05/23/23 18:59 06:59 18:59 Intake Total 500 0 Output Total 400 578 Balance 500 -400 -578 Weight 75.5 kg Intake: Intake, IV Titration 0 Amount IV Fluid Continuation 1, 0 000 ml @ 0 mls/hr IV .[facility]K -[facility] Rx#:[id number] Oral 500 Output: Urine 400 425 Post Void Residual 153 Other: Voiding Method Toilet Urinal Urinal Bedpan # Voids 2 - Labs CBC & Chem 7: 05/23/23 05:41 05/23/23 10:41 Labs: Abnormal Lab Results - Last 24 Hours (Table) 05/22/23 05/23/23 05/23/23 Range/Units 20:20 05:41 05:41 WBC 19.6 H (3.8-10.6) k/uL RBC 4.18 L (4.30-5.90) m/uL Hgb 11.5 L (13.0-17.5) gm/dL Hct 34.2 L (39.0-53.0) % RDW 15.8 H (11.5-15.5) % Neutrophils # 18.0 H (1.3-7.7) k/uL Lymphocytes # 0.5 L (1.0-4.8) k/uL Sodium 125 L (137-145) mmol/L Chloride 91 L (98-107) mmol/L Glucose 124 H (74-99) mg/dL POC Glucose (mg/dL) 167 H (70-110) mg/dL Calcium 8.2 L (8.4-10.2) mg/dL Urine Protein (Negative) Urine Ketones (Negative) Urine Blood (Negative) Urine RBC (0-5) /hpf Urine Mucus (None) /hpf 05/23/23 05/23/23 05/23/23 Range/Units 06:46 10:41 11:00 WBC (3.8-10.6) k/uL RBC (4.30-5.90) m/uL Hgb (13.0-17.5) gm/dL Hct (39.0-53.0) % RDW (11.5-15.5) % Neutrophils # (1.3-7.7) k/uL Lymphocytes # (1.0-4.8) k/uL Sodium 124 L (137-145) mmol/L Chloride 91 L (98-107) mmol/L Glucose 116 H (74-99) mg/dL POC Glucose (mg/dL) 146 H (70-110) mg/dL Calcium 8.1 L (8.4-10.2) mg/dL Urine Protein 1+ H (Negative) Urine Ketones 1+ H (Negative) Urine Blood Large H (Negative) Urine RBC 56 H (0-5) /hpf Urine Mucus Rare H (None) /hpf 05/23/23 05/23/23 Range/Units 11:26 16:15 WBC (3.8-10.6) k/uL RBC (4.30-5.90) m/uL Hgb (13.0-17.5) gm/dL Hct (39.0-53.0) % RDW (11.5-15.5) % Neutrophils # (1.3-7.7) k/uL Lymphocytes # (1.0-4.8) k/uL Sodium (137-145) mmol/L Chloride (98-107) mmol/L Glucose (74-99) mg/dL POC Glucose (mg/dL) 126 H 171 H (70-110) mg/dL Calcium (8.4-10.2) mg/dL Urine Protein (Negative) Urine Ketones (Negative) Urine Blood (Negative) Urine RBC (0-5) /hpf Urine Mucus (None) /hpf
[2023-05-23] MEDS: SODIUM CHLORIDE 0.9% 1,000 ML IV SCH (18:40)
[2023-05-23 19:17] LABS: African American GFR (CKD) >90 (>60 ml/min/1.73 sqM); Anion Gap 11 mmol/L; Blood Urea Nitrogen 21 mg/dL (9-20); Calcium 8.3 mg/dL (8.4-10.2); Carbon Dioxide 24 mmol/L (22-30); Chloride 91 mmol/L (98-107); Glucose 98 mg/dL (74-99); Non-African American GFR(CKD) >90 (>60 ml/min/1.73 sqM); Potassium 3.8 mmol/L (3.5-5.1); Sodium 126 mmol/L (137-145)
[2023-05-23] MEDS: ATORVASTATIN 80 MG TAB PO SCH (20:08)
[2023-05-23 20:18] LABS: Glucose,Whole Blood 142 mg/dL (70-110)
[2023-05-23] MEDS ORDERED: HYDROmorphone 1 MG/ML 1 ML SYRINGE IVP PRN (20:28)
[2023-05-23 20:41] LABS: Glucose,Whole Blood 133 mg/dL (70-110)
[2023-05-23] MEDS ORDERED: VANCOMYCIN IV PER PHARMACY 1 EACH MISC MISCELLANE PRN (20:58)
--- NOTE | 2023-05-23 21:09 | P.EN ---
patient , keep voicing concerns regarding patient well being . she reports altered mental status , confusion , and patient being less alert compared to yesterday. she is concerned regarding blood infection , as he is having pus draining from his prior IV sites in both antecubital fossas. she is taking patient temp herself, and reporting that it was 103 i evalutated the the patient , no new murmurs. both prior IV sites in the antecubital fossa, with no active drainage, with slight erythema on both sites, and some palpable superficial vein on the left side. I reassured patient , and we had a discussion of different options. he is currently on bactrim PO and topical mupirocin I explained US showed superficial phlebitis over the left antecubital fossa patient and his requested to be aggressive in the management before things gets worse. I offered to get blood cultures , DC bactrim and start vanco. then de escalate if cultures remain negative cardio to follow up on the heart and any complications post STEMI. which I can not identify any at this point pain control of his sternal pain due to CPR, will change dilaudid to q3 hr patient and agrees to this plan
[2023-05-23] MEDS: VANCOMYCIN 1,500 MG in SODIUM CHLORIDE 0.9% 500 ML 500 ML IVPB SCH (21:19)
[2023-05-24] MEDS: HYDROmorphone 1 MG/ML 1 ML SYRINGE IVP PRN ×6 (00:06→23:12)
[2023-05-24] MEDS: ACETAMINOPHEN TAB 325 MG TAB PO PRN ×2 (04:08→17:46)
[2023-05-24] MEDS: SODIUM CHLORIDE 0.9% 1,000 ML IV SCH (04:14)
[2023-05-24 04:44] LABS: HCT 32.3 % (39.0-53.0); HGB 11.1 gm/dL (13.0-17.5); MCH 28.3 pg (25.0-35.0); MCHC 34.5 g/dL (31.0-37.0); Mean Platelet Volume 8.4; Platelet Count 149 k/uL (150-450); RBC 3.94 m/uL (4.30-5.90); WBC 14.4 k/uL (3.8-10.6)
[2023-05-24 04:55] LABS: African American GFR (CKD) >90 (>60 ml/min/1.73 sqM); Anion Gap 10 mmol/L; Blood Urea Nitrogen 21 mg/dL (9-20); Calcium 8.2 mg/dL (8.4-10.2); Carbon Dioxide 24 mmol/L (22-30); Chloride 92 mmol/L (98-107); Glucose 108 mg/dL (74-99); Non-African American GFR(CKD) >90 (>60 ml/min/1.73 sqM); Potassium 4.1 mmol/L (3.5-5.1); Sodium 126 mmol/L (137-145)
[2023-05-24] MEDS: PANTOPRAZOLE 40 MG TABLET PO SCH (06:40)
[2023-05-24] MEDS: INSULIN ASPART (NovoLOG) 100 UNIT/ML VIAL SQ SCH ×4 (06:40→20:50)
[2023-05-24 06:41] LABS: Glucose,Whole Blood 135 mg/dL (70-110)
[2023-05-24] MEDS: LIDOCAINE 4% PATCH TOPICAL SCH (08:44)
[2023-05-24] MEDS: PRASUGREL 10 MG TAB PO SCH (08:44)
[2023-05-24] MEDS: MORPHINE SULFATE ER 30 MG TABLET PO SCH ×2 (08:44→22:26)
[2023-05-24] MEDS: TAMSULOSIN 0.4 MG CAP.ER.24H PO SCH (08:44)
[2023-05-24] MEDS: HEPARIN SODIUM,PORCINE 5,000 UNIT/ML 1 ML VIAL SQ SCH ×2 (08:44→17:47)
[2023-05-24] MEDS: ASPIRIN 81 MG PO SCH (08:45)
[2023-05-24] MEDS: GABAPENTIN 400 MG CAP PO SCH ×3 (08:45→22:27)
[2023-05-24] MEDS: PARoxetine 20 MG TAB PO SCH (08:46)
[2023-05-24] MEDS: METOPROLOL TARTRATE 25 MG TAB PO SCH ×2 (08:46→22:26)
[2023-05-24] MEDS: VANCOMYCIN 1,500 MG in SODIUM CHLORIDE 0.9% 500 ML 500 ML IVPB SCH ×2 (08:56→22:27)
[2023-05-24] MEDS: lisinopriL 5 MG TAB PO SCH (08:57)
[2023-05-24] MEDS: MUPIROCIN 2% OINT 22 GM TUBE TOPICAL SCH ×3 (10:00→22:31)
[2023-05-24] MEDS ORDERED: SODIUM CHLORIDE TAB 1 GM TAB PO STA ×2 (11:41→20:04)
--- NOTE | 2023-05-24 11:44 | P.NPCON ---
History of Present Illness - Reason for Consult hyponatremia - History of Present Illness Reason for consultation: Hyponatremia History of present illness: Patient is a 67-year-old male seen in renal consultation for hyponatremia.patient's sodium level on admission on 05/19/2023 was 141 and has been subsequently decreasing. It was down as low as 124 on 05/23/2023 and stable at 126 the last 2 days. Patient came to the hospital on 05/19/2023 with chest pain. Patient had a cardiac arrest in the ambulance. He underwent cardiac catheterization and had a stent placed to the RCA on 05/19/2023. Patient denies history of malignancy. He denies use of nonsteroidals. Oral intake is fair. He does admit to drinking quite a bit of fluids. Patient states he is drinking at least 60 ounces of water daily as well as 2 bottles of apple juice and one bottle of orange juice daily. No nausea or vomiting. He does admit to chest discomfort from decompressions. He denies use of diuretics. No hematuria. GFR at baseline. Vital signs are stable. General: No acute distress. HEENT: Head exam is unremarkable. LUNGS: No audible rhonchi or wheezes. HEART: Rate and Rhythm are regular. ABDOMEN: Nontender. EXTREMITITES: No edema. Past Medical History Additional Past Medical History / Comment(s): Knee replacement- jan 2023, then fall with break in leg. Depression History of Any Multi-Drug Resistant Organisms: None Reported Past Surgical History: Orthopedic Surgery Past Anesthesia/Blood Transfusion Reactions: No Reported Reaction Past Psychological History: Anxiety, Depression Smoking Status: Former smoker Past Drug Use History: Marijuana Additional Drug Use History / Comment(s): Marijuana daily - Past Family History Mother Family Medical History: No Reported History Father Family Medical History: Congestive Heart Failure (CHF) Additional Family Medical History / Comment(s): Medications and Allergies Home Medications Medication Instructions Recorded Confirmed Type ALPRAZolam [Xanax] 0.25 mg PO DAILY PRN 05/19/23 05/19/23 History Caffeine Tablet 1 tab PO DAILY PRN 05/19/23 05/19/23 History Gabapentin 800 mg PO TID 05/19/23 05/19/23 History Morphine Sulfate ER [Ms Contin] 30 mg PO Q12HR 05/19/23 05/19/23 History PARoxetine [Paxil] 60 mg PO DAILY 05/19/23 05/19/23 History Tamsulosin HCl [Flomax] 0.4 mg PO DAILY 05/19/23 05/19/23 History oxyCODONE HCL [Oxycodone HCl] 15 mg PO BID 05/19/23 05/19/23 History Empagliflozin [Jardiance] 10 mg PO DAILY #30 tablet 05/23/23 Rx Allergies Allergy/AdvReac Type Severity Reaction Status Date / Time iodine AdvReac Itching Verified 05/19/23 12:57 Physical Exam Vitals: Vital Signs Temp Pulse Pulse Resp BP BP Pulse Ox 05/24/23 08:00 99.7 F H 81 18 95/62 05/24/23 04:00 100.6 F H 89 12 102/59 97 05/24/23 03:00 84 14 130/76 05/24/23 02:00 82 15 92/52 97 05/24/23 01:00 78 14 94/44 05/24/23 00:11 73 13 90/52 05/24/23 00:00 99.3 F 68 12 88/60 97 05/23/23 23:00 72 13 84/47 96 05/23/23 22:00 70 12 87/56 95 05/23/23 21:30 100.3 F H 92 16 78/45 97 05/23/23 18:44 99.3 F 93 05/23/23 16:00 100.3 F H 17 128/79 99 05/23/23 12:00 97.9 F 66 16 94/69 99 Intake and Output 05/23/23 05/24/23 05/24/23 22:59 06:59 14:59 Intake Total 0 1650 500 Output Total 450 Balance 0 1200 500 Intake: IV 1250 500 Sodium Chloride 0.9% 1, 600 000 ml @ 75 mls/hr IV . [id number] [facility] Rx#:[id number] Vancomycin 1,500 mg In 650 500 Sodium Chloride 0.9% 500 ml 500 ml @ 167 mls/hr IVPB Q12HR@0800,2200 [facility] Rx#:[id number] Intake, IV Titration 0 Amount IV Fluid Continuation 1, 0 000 ml @ 0 mls/hr IV .STK [facility] Rx#:[id number] Oral 400 Output: Urine 450 Other: Voiding Method Urinal Urinal Urinal # Voids 1 1 Weight 75 kg Results - Lab Results Most recent lab results Calcium 8.2 mg/dL (8.4-10.2) L 05/24/23 04:05 Magnesium 1.7 mg/dL (1.6-2.3) 05/23/23 05:41 05/24/23 04:05 05/24/23 04:05 Assessment and Plan Plan: Assessment: 1. 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 GFR at baseline. Urine sodium 59 and urine osmolality 640. TSH normal. 2. STEMI status post cardiac catheterization with stent to the RCA in 05/19/2023. 3. IV site infection on antibiotics. Plan: Check sodium level now. If no improvement in sodium level, Hep-Lock IV fluids. 1 dose of sodium chloride tablet now. Encourage protein intake. Add 1200 mL fluid restriction. Check cortisol level. Thank you for the consultation. I will continue to follow the patient with you during his hospital stay.
[2023-05-24 11:57] LABS: Glucose,Whole Blood 146 mg/dL (70-110)
--- NOTE | 2023-05-24 12:06 | XR ---
EXAMINATION TYPE: XR chest 1V portable DATE OF EXAM: 05/24/2023 COMPARISON: 05/22/2023. HISTORY: Pneumonia. TECHNIQUE: Single frontal view of the chest is obtained. FINDINGS: There is no focal air space opacity, pleural effusion, or pneumothorax seen. The cardiac silhouette size is within normal limits. The osseous structures are intact. IMPRESSION: No acute process.
[2023-05-24] MEDS: MAG HYDROX/AL HYDROX/SIMETH 30 ML CUP PO PRN ×2 (14:06→21:00)
--- NOTE | 2023-05-24 15:56 | P.PN ---
Subjective Progress Note Date: 05/24/23 (hardeep charting seen at 0930) Patient is a 67-year-old male with chronic back pain on opiate therapy, depression, and osteoarthritis who presented to the emergency department with complaints of chest pain. Patient was brought in via EMS and while [facility] had a brief ventricular fibrillation arrest requiring CPR and defibrillation. On arrival patient was noted have an ST segment elevated myocardial infarction. EKG revealed ST segment elevation in the inferior leads. Initial laboratory analysis on arrival was remarkable for glucose of 256. Initial chest x-ray showed no acute cardiopulmonary process. Patient underwent an emergent heart cath which showed a total occlusion of the RCA with large thrombus burden which was successfully stented with good angiographic results. He was subsequently placed on aspirin, statin, and Effient. Patient was admitted to the ICU. Echocardiogram demonstrated an ejection fraction of 40-45% with inferior hypokinesis.. Patient was being evaluated for possible discharge when he spiked a fever of 102.1. At that time chest x-ray showed no acute process, urinalysis negative, EKG without signs of pericarditis. COVID/FLu/RSV negative. Patient continued to spike fevers on 05/23. He was fount ot have left AC superficial thrombophelbitis with surrounding cellulitis. Blood cultures were obtained. He was started on IV vancomycin. Case discussed with nursing no other acute events. Patient seen and examined at bedside. He is feeling somewhat better today pain is better controlled. He is up awake and conversational. He is still slightly worried about his thrombophlebitis but does agree that it looks much improved from yesterday. Vital signs reviewed General: nontoxic, no distress, appears at stated age Ur: Left antecubital fossa with area of thrombosed vein and surrounding cellulitis Cardiovascular: S1S2 reg, no murmur, positive posterior tibial pulse bilateral, Lungs: CTA bilateral, no rhonchi, no rales , no accessory muscle use Abdominal: soft, nontender to palpation, no guarding, no appreciable organomega ly Ext: no gross muscle atrophy, no edema b/l lower extremities, no contractures Neuro: CN II-XI grossly intact, no focal neuro deficits Psych: Alert, oriented, appropriate affect Assessment/Plan: Inferior ST segment elevated myocardial infarction status post PCI to the RCA S/P V. fib arrest. Cardiomyopathy with ejection fraction 40-45% Acute on chronic pain Newly discovered prediabetes with A1c 6 - Aspirin 81 mg daily, Effient 10 mg Lipitor 40 mg daily - Await further cardio recs GDMT: - Metoprolol 25 mg twice daily, lisinopril 5 mg daily-- unable to uptritrate given BP - Unable to start aldactone give sodium level -Continue with sliding scale insulin given pre DM , Start farxiga 5 mg daily, follow blood sugars, Jardiance/farxiga upon discharge given reduced ejection fraction Fever Suspect due to superficial thromohelbitis of Left AC with surrounding cellulitis - vancomycin dosing via wieght and trough D # 2, monitor cr and trough for toxicity. - Await blood cultures -Follow up repeat CBC in a.m. -Ultrasound of left upper extremity this was ordered and reviewed which showed superficial thrombus within the antecubital vein with no evidence of DVT -Influenza A/B/RSV/COVID-19 PCR negative -Chest x-ray negative -CRP mildly elevated -EKG without overt signs of pericarditis -UA negatice Hyponatremia due to SIADH from pain, poor soluate intake, and paxil - STOP IV fluids - Nephrology consultation reviewed. 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 One dose of sodium chloride tablet, and 1200 mL fluid restriction, check cortisol. GERD - protonix 40 mg daily Hypomagnesemia, resolved Imaging: Chest x-ray were reviewed from this morning shows no acute process. Data Review: Labs reviewed from today include CBC and basic metabolic profile. White blood cell count 14.4, hemoglobin 11.1, platelets 149, sodium 125, BUN 21. Urinalysis from yesterday showed urine osmolality of 640 and urine sodium of 59 DVT prophylaxis: Heparin Anticipated discharge date: in 24- [address]:home This dictation was prepared using [employer] voice recognition software. Though every attempt is made to correct errors during dictation some may still exist. Objective - Vital Signs Vital signs: Vital Signs Temp 99.1 F 05/24/23 12:00 Pulse 83 05/24/23 12:00 Resp 18 05/24/23 12:00 BP 119/71 05/24/23 12:00 Pulse Ox 97 05/24/23 04:00 FiO2 Intake & Output 05/23/23 05/24/23 05/24/23 18:59 06:59 18:59 Intake Total 0 1650 500 Output Total 578 450 Balance -578 1200 500 Weight 75 kg Intake: IV 1250 500 Sodium Chloride 0.9% 1, 600 000 ml @ 75 mls/hr IV . [id number] [facility] Rx#:[id number] Vancomycin 1,500 mg In 650 500 Sodium Chloride 0.9% 500 ml 500 ml @ 167 mls/hr IVPB Q12HR@0800,2200 [facility] Rx#:[id number] Intake, IV Titration 0 Amount IV Fluid Continuation 1, 0 000 ml @ 0 mls/hr IV .STK [facility] Rx#:[id number] Oral 400 Output: Urine 425 450 Post Void Residual 153 Other: Voiding Method Urinal Urinal Urinal # Voids 1 1 - Labs CBC & Chem 7: 05/24/23 04:05 05/24/23 11:40 Labs: Abnormal Lab Results - Last 24 Hours (Table) 05/23/23 05/23/23 05/23/23 Range/Units 16:15 18:06 20:17 WBC (3.8-10.6) k/uL RBC (4.30-5.90) m/uL Hgb (13.0-17.5) gm/dL Hct (39.0-53.0) % RDW (11.5-15.5) % Plt Count (150-450) k/uL Sodium 126 L (137-145) mmol/L Chloride 91 L (98-107) mmol/L BUN 21 H (9-20) mg/dL Glucose (74-99) mg/dL POC Glucose (mg/dL) 171 H 142 H (70-110) mg/dL Osmolality 265 L (280-301) mosm/kg Calcium 8.3 L (8.4-10.2) mg/dL 05/23/23 05/24/23 05/24/23 Range/Units 20:39 04:05 04:05 WBC 14.4 H (3.8-10.6) k/uL RBC 3.94 L (4.30-5.90) m/uL Hgb 11.1 L (13.0-17.5) gm/dL Hct 32.3 L (39.0-53.0) % RDW 16.0 H (11.5-15.5) % Plt Count 149 L (150-450) k/uL Sodium 126 L (137-145) mmol/L Chloride 92 L (98-107) mmol/L BUN 21 H (9-20) mg/dL Glucose 108 H (74-99) mg/dL POC Glucose (mg/dL) 133 H (70-110) mg/dL Osmolality (280-301) mosm/kg Calcium 8.2 L (8.4-10.2) mg/dL 05/24/23 05/24/23 05/24/23 Range/Units 06:39 11:40 11:56 WBC (3.8-10.6) k/uL RBC (4.30-5.90) m/uL Hgb (13.0-17.5) gm/dL Hct (39.0-53.0) % RDW (11.5-15.5) % Plt Count (150-450) k/uL Sodium 125 L (137-145) mmol/L Chloride (98-107) mmol/L BUN (9-20) mg/dL Glucose (74-99) mg/dL POC Glucose (mg/dL) 135 H 146 H (70-110) mg/dL Osmolality (280-301) mosm/kg Calcium (8.4-10.2) mg/dL
--- NOTE | 2023-05-24 18:02 | P.PN ---
Subjective Progress Note Date: 05/24/23 The patient is a pleasant 67-year-old gentleman with hypertension and dyslipidemia presented to the emergency department complaining of chest discomfort. He was in his usual state of health until about a few hours when he started experiencing discomfort in the middle of the chest as a pressure on the chest with radiation to the left arm. No associated symptoms of shortness of breath or dizziness or lightheadedness or any feeling of heart racing or fluttering or any presyncope or syncope. His brought the patient to the emergency department where he underwent further workup including an EKG showing inferior ST elevation myocardial infarction. Subsequently underwent an emergent heart catheterization and was found to have acute total occlusion of the RCA distally was extremely large thrombus burden. The patient underwent successful PCI of the RCA with a good angiographic results by the end. After aspiration thrombectomy the thrombus burden has decreased but continues to be there. The patient was placed on Aggrastat and he was sent to the intensive care unit. He was chest pain-free VT has been maintaining normal sinus mechanism. Please note that on the way to the hospital by ambulance the patient did have an episode of cardiac arrest was V. fib and he was cardioverted. Since then he had no more episodes of ventricular fibrillation or ventricular tachycardia. The examinatio n is remarkable for regular rhythm and systolic murmur at the right and left upper sternal border with a clear breathing sounds bilaterally and no lower extremities edema noted. He does have some blood in the right ear after the cardioversion 05/21/2023 Patient is doing well from cardiac vessel standpoint. His right groin appears intact with no swelling or signs of bleeding. He denies any chest pain chest pressure or shortness of breath. He complains of chest wall pain because of chest compressions. His labs and vitals are within normal limits. 05/22/23 This morning patient is coming no significant chest pain that gets worse with breathing. This is most likely related to his muscular skeletal pain from chest compression. We will obtain a chest x-ray to see if he has any rib fractures. Obtain a 12-lead ECG to see if patient is having any pericarditis changes. On exam patient does not have any rubs. Patient spiked a Fever of 102 today 05/23/2023 This morning patient continues to have fever and chills. His left antecubital vein IV appears to be infected with some concerns of cellulitis and superficial thrombophlebitis. No evidence of DVT was noticed on ultrasound. Chest x-ray does not show any acute cardiac permit process. No evidence of rib fractures. Interestingly patient's sodium is trending down with sodium of 125. This could be related to pain related SIADH. Primary team is working it up. Patient is also getting antibiotics for his fever of unknown etiology. 05/24/23 Patient is seen and examined at bedside the same. Patient reports some pain in his right knee. He reports he had a knee replacement surgery team as well. It appears slightly swollen and warm to touch. His sodium is 125. He is on fluid restriction as per nephrology team. Vestibular doing well from cardiac vessel standpoint Physical examination Febrile Normal S1 and S2, no cardiac murmurs Good air entry in bilateral lung burn[place] Chest is tender to palpation , no rubs, no murmur, normal s1 and s2 regular Intact bilateral lower extremity pulses. 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 No evidence of rib fracture. No evidence of pericarditis on ECG and physical examination. PE and DVT could be a differential fever of unknown origin. If no source is found with no recovery after antibiotics, would recommend getting a CTA PE protocol. Blood culture positive for gram-positive clusters as preliminary report. He is also reporting right knee swelling and increase warmth. Contacted primary team to evaluate for possible septic arthritis. Plan for outpatient follow-up with Dr. Warren Lidocaine patch for chest wall pain Objective - Vital Signs Vital signs: Vital Signs Temp 99.1 F 05/24/23 12:00 Pulse 83 05/24/23 12:00 Resp 18 05/24/23 12:00 BP 119/71 05/24/23 12:00 Pulse Ox 97 05/24/23 04:00 FiO2 Intake & Output 05/23/23 05/24/23 05/24/23 18:59 06:59 18:59 Intake Total 0 1650 500 Output Total 578 450 Balance -578 1200 500 Weight 75 kg Intake: IV 1250 500 Sodium Chloride 0.9% 1, 600 000 ml @ 75 mls/hr IV . [id number] [facility] Rx#:[id number] Vancomycin 1,500 mg In 650 500 Sodium Chloride 0.9% 500 ml 500 ml @ 167 mls/hr IVPB Q12HR@0800,2200 [facility] Rx#:[id number] Intake, IV Titration 0 Amount IV Fluid Continuation 1, 0 000 ml @ 0 mls/hr IV .[facility] Rx#:[id number] Oral 400 Output: Urine 425 450 Post Void Residual 153 Other: Voiding Method Urinal Urinal Urinal # Voids 1 1 - Labs CBC & Chem 7: 05/24/23 04:05 05/24/23 11:40 Labs: Abnormal Lab Results - Last 24 Hours (Table) 05/23/23 05/23/23 05/23/23 Range/Units 18:06 20:17 20:39 WBC (3.8-10.6) k/uL RBC (4.30-5.90) m/uL Hgb (13.0-17.5) gm/dL Hct (39.0-53.0) % RDW (11.5-15.5) % Plt Count (150-450) k/uL Sodium 126 L (137-145) mmol/L Chloride 91 L (98-107) mmol/L BUN 21 H (9-20) mg/dL Glucose (74-99) mg/dL POC Glucose (mg/dL) 142 H 133 H (70-110) mg/dL Osmolality 265 L (280-301) mosm/kg Calcium 8.3 L (8.4-10.2) mg/dL 05/24/23 05/24/23 05/24/23 Range/Units 04:05 04:05 06:39 WBC 14.4 H (3.8-10.6) k/uL RBC 3.94 L (4.30-5.90) m/uL Hgb 11.1 L (13.0-17.5) gm/dL Hct 32.3 L (39.0-53.0) % RDW 16.0 H (11.5-15.5) % Plt Count 149 L (150-450) k/uL Sodium 126 L (137-145) mmol/L Chloride 92 L (98-107) mmol/L BUN 21 H (9-20) mg/dL Glucose 108 H (74-99) mg/dL POC Glucose (mg/dL) 135 H (70-110) mg/dL Osmolality (280-301) mosm/kg Calcium 8.2 L (8.4-10.2) mg/dL 05/24/23 05/24/23 Range/Units 11:40 11:56 WBC (3.8-10.6) k/uL RBC (4.30-5.90) m/uL Hgb (13.0-17.5) gm/dL Hct (39.0-53.0) % RDW (11.5-15.5) % Plt Count (150-450) k/uL Sodium 125 L (137-145) mmol/L Chloride (98-107) mmol/L BUN (9-20) mg/dL Glucose (74-99) mg/dL POC Glucose (mg/dL) 146 H (70-110) mg/dL Osmolality (280-301) mosm/kg Calcium (8.4-10.2) mg/dL Microbiology - Last 24 Hours (Table) 05/23/23 20:46 Blood Culture Gram Stain - Preliminary Blood 05/23/23 20:44 Blood Culture Gram Stain - Preliminary Blood
[2023-05-24 18:58] LABS: African American GFR (CKD) >90 (>60 ml/min/1.73 sqM); Anion Gap 10 mmol/L; Blood Urea Nitrogen 16 mg/dL (9-20); Calcium 7.9 mg/dL (8.4-10.2); Carbon Dioxide 22 mmol/L (22-30); Chloride 92 mmol/L (98-107); Glucose 113 mg/dL (74-99); Non-African American GFR(CKD) >90 (>60 ml/min/1.73 sqM); Potassium 4.1 mmol/L (3.5-5.1); Sodium 124 mmol/L (137-145)
[2023-05-24 20:47] LABS: Glucose,Whole Blood 128 mg/dL (70-110)
[2023-05-24] MEDS: ATORVASTATIN 80 MG TAB PO SCH (20:58)
--- NOTE | 2023-05-24 21:32 | XR ---
EXAMINATION TYPE: XR knee complete RT DATE OF EXAM: 05/24/2023 COMPARISON: None HISTORY: Swelling and pain since surgery TECHNIQUE: 3 view right knee FINDINGS: There is a fracture of the medial femoral condyle is slightly displacement of the fracture fragment. There is some prominence of the space between the femoral prosthesis and the fracture fragm ent. Large joint effusion appears to be present. Tibial component appears intact. No acute fracture of the tibia is evident. IMPRESSION: 1. Fracture at the medial femoral condyle adjacent to the femoral prosthesis with slight diastases. 2. Large joint effusion
[2023-05-24] MEDS: ALPRAZolam 0.25 MG TAB PO PRN (22:26)
[2023-05-25] MEDS: HEPARIN SODIUM,PORCINE 5,000 UNIT/ML 1 ML VIAL SQ SCH ×3 (00:56→15:56)
[2023-05-25 07:15] LABS: Glucose,Whole Blood 163 mg/dL (70-110)
[2023-05-25] MEDS: VANCOMYCIN TROUGH DUE 1 EACH MISC MISCELLANE ONE ×2 (07:45→10:48)
[2023-05-25] MEDS: PANTOPRAZOLE 40 MG TABLET PO SCH (08:47)
[2023-05-25] MEDS: ASPIRIN 81 MG PO SCH (08:47)
[2023-05-25] MEDS: GABAPENTIN 400 MG CAP PO SCH ×3 (08:48→21:23)
[2023-05-25] MEDS: lisinopriL 5 MG TAB PO SCH (08:48)
[2023-05-25] MEDS: MORPHINE SULFATE ER 30 MG TABLET PO SCH ×2 (08:48→21:23)
[2023-05-25] MEDS: PARoxetine 20 MG TAB PO SCH (08:48)
[2023-05-25] MEDS: DAPAGLIFLOZIN PROPANEDIOL 5 MG TABLET PO SCH (08:48)
[2023-05-25] MEDS: METOPROLOL TARTRATE 25 MG TAB PO SCH ×2 (08:49→21:23)
[2023-05-25] MEDS: LIDOCAINE 4% PATCH TOPICAL SCH (08:49)
[2023-05-25] MEDS: MUPIROCIN 2% OINT 22 GM TUBE TOPICAL SCH ×3 (09:07→21:37)
[2023-05-25] MEDS: HYDROmorphone 1 MG/ML 1 ML SYRINGE IVP PRN ×5 (09:08→21:29)
[2023-05-25 09:30] LABS: HCT 29.3 % (39.0-53.0); HGB 9.9 gm/dL (13.0-17.5); MCH 27.6 pg (25.0-35.0); MCHC 33.7 g/dL (31.0-37.0); MCV 81.9 fL (80.0-100.0); Mean Platelet Volume 8.8; Platelet Count 167 k/uL (150-450); RBC 3.58 m/uL (4.30-5.90); WBC 10.3 k/uL (3.8-10.6)
[2023-05-25] MEDS: VANCOMYCIN 1,500 MG in SODIUM CHLORIDE 0.9% 500 ML 500 ML IVPB SCH (09:34)
[2023-05-25] MEDS: INSULIN ASPART (NovoLOG) 100 UNIT/ML VIAL SQ SCH ×4 (09:35→21:41)
[2023-05-25 10:36] LABS: African American GFR (CKD) >90 (>60 ml/min/1.73 sqM); Anion Gap 9 mmol/L; Blood Urea Nitrogen 15 mg/dL (9-20); Calcium 7.8 mg/dL (8.4-10.2); Carbon Dioxide 21 mmol/L (22-30); Chloride 97 mmol/L (98-107); Glucose 137 mg/dL (74-99); Non-African American GFR(CKD) >90 (>60 ml/min/1.73 sqM); Sodium 127 mmol/L (137-145)
--- NOTE | 2023-05-25 10:37 | P.PN ---
Subjective Patient is seen for follow-up for hyponatremia. IV fluids were discontinued as serum sodium had decreased over the last 2 days. Status post sodium chloride tabs and sodium is up to 127 yesterday. Blood cultures are growing gram-positive cocci in clusters History of right knee infection as well as infection at the IV site. Patient is requesting for liberalization in fluid restriction due to significant dry mouth. Objective - Vital Signs Vital signs: Vital Signs Temp 98.7 F 05/25/23 08:00 Pulse 94 05/25/23 08:00 Resp 16 05/25/23 08:00 BP 101/58 05/25/23 08:00 Pulse Ox 93 L 05/25/23 04:00 FiO2 Intake & Output 05/24/23 05/25/23 05/25/23 18:59 06:59 18:59 Intake Total 1600 500 650 Output Total 730 570 Balance 1600 -230 80 Weight 75.9 kg Intake: IV 500 500 500 Vancomycin 1,500 mg In 500 500 500 Sodium Chloride 0.9% 500 ml 500 ml @ 167 mls/hr IVPB Q12HR@0800,2200 [facility] Rx#:[id number] Oral 1100 150 Output: Urine 730 570 Other: Voiding Method Urinal Urinal Urinal # Voids 4 4 2 - Exam Patient is awake, comfortable, no acute distress Examination of the heart S1 and S2 Examination the lungs bilateral breath sounds are heard Abdomen is soft nontender Examination lower extremity shows no evidence of edema INCOME AUDITOR exam grossly intact - Labs CBC & Chem 7: 05/25/23 07:45 05/24/23 23:56 Labs: Abnormal Lab Results - Last 24 Hours (Table) 05/24/23 05/24/23 05/24/23 Range/Units 11:40 11:56 18:08 RBC (4.30-5.90) m/uL Hgb (13.0-17.5) gm/dL Hct (39.0-53.0) % RDW (11.5-15.5) % Sodium 125 L 124 L (137-145) mmol/L Chloride 92 L (98-107) mmol/L Glucose 113 H (74-99) mg/dL POC Glucose (mg/dL) 146 H (70-110) mg/dL Calcium 7.9 L (8.4-10.2) mg/dL 12/07/1605/24/23 05/25/23 Range/Units 20:46 23:56 07:14 RBC (4.30-5.90) m/uL Hgb (13.0-17.5) gm/dL Hct (39.0-53.0) % RDW (11.5-15.5) % Sodium 127 L (137-145) mmol/L Chloride (98-107) mmol/L Glucose (74-99) mg/dL POC Glucose (mg/dL) 128 H 163 H (70-110) mg/dL Calcium (8.4-10.2) mg/dL 05/25/23 Range/Units 07:45 RBC 3.58 L (4.30-5.90) m/uL Hgb 9.9 L (13.0-17.5) gm/dL Hct 29.3 L (39.0-53.0) % RDW 16.0 H (11.5-15.5) % Sodium (137-145) mmol/L Chloride (98-107) mmol/L Glucose (74-99) mg/dL POC Glucose (mg/dL) (70-110) mg/dL Calcium (8.4-10.2) mg/dL Microbiology - Last 24 Hours (Table) 05/23/23 20:46 Blood Culture Gram Stain - Preliminary Blood 05/23/23 20:44 Blood Culture Gram Stain - Preliminary Blood Assessment and Plan Assessment: 1. 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 GFR at baseline. Urine sodium 59 and urine osmolality 640. TSH normal. 2. STEMI status post cardiac catheterization with stent to the RCA in 05/19/2023. 3. IV site infection on antibiotics. Previous history of right knee infection. Blood cultures are growing gram-positive cocci in clusters. Plan: Continue off of IV fluids Repeat sodium today Continue with sodium chloride tabs Continue with fluid restriction, may change to 1500 ML per day Continue antibiotics as per ID
[2023-05-25] MEDS: TAMSULOSIN 0.4 MG CAP.ER.24H PO SCH (11:31)
[2023-05-25] MEDS: PRASUGREL 10 MG TAB PO SCH (11:31)
[2023-05-25 11:35] LABS: Glucose,Whole Blood 137 mg/dL (70-110)
[2023-05-25] MEDS: MAGNESIUM HYDROXIDE 2,400 MG/30 ML CUP PO PRN ×2 (12:18→21:36)
[2023-05-25] MEDS: ALPRAZolam 0.25 MG TAB PO PRN ×2 (13:46→20:25)
--- NOTE | 2023-05-25 13:50 | P.PN ---
Subjective Progress Note Date: 05/25/23 Patient is a 67-year-old male with chronic back pain on opiate therapy, depression, and osteoarthritis who presented to the emergency department with complaints of chest pain. Patient was brought in via EMS and while [facility] had a brief ventricular fibrillation arrest requiring CPR and defibrill ation. On arrival patient was noted have an ST segment elevated myocardial infarction. EKG revealed ST segment elevation in the inferior leads. Initial laboratory analysis on arrival was remarkable for glucose of 256. Initial chest x-ray showed no acute cardiopulmonary process. Patient underwent an emergent heart cath which showed a total occlusion of the RCA with large thrombus burden which was successfully stented with good angiographic results. He was subsequently placed on aspirin, statin, and Effient. Patient was admitted to the ICU. Echocardiogram demonstrated an ejection fraction of 40-45% with inferior hypokinesis.. Patient was being evaluated for possible discharge when he spiked a fever of 102.1. At that time chest x-ray showed no acute process, urinalysis negative, EKG without signs of pericarditis. COVID/Flu/RSV negative. Patient continued to spike fevers on 05/23. He was fount ot have left AC superficial thrombophelbitis with surrounding cellulitis. Blood cultures were obtained. He was started on IV vancomycin. 05/25 Patient was seen and examined. He reports uncontrolled pain in his chest. Also reports anxiety. Tmax 101.8F over the past 24H. BCx + for gram positive cocci in clusters. Antibiotics include Vancomycin. Knee XR ordered for swollen R knee which shows fracture of the medial femoral condyle with large joint effusion. Orthopedic surgery and ID has been consulted. CBC Hg 9.9. BMP Na 127, Cl 97, bicarb 21, Cr 0.63, glu 137, Ca 7.8. General: non toxic, no distress, appears at stated age Derm: warm, dry Head: atraumatic, normocephalic, symmetric Eyes: EOMI, no lid lag, anicteric sclera Cardiovascular: S1S2 reg, no murmur Lungs: CTA bilateral, no rhonchi, no rales , no accessory muscle use Ext: no gross muscle atrophy, no edema, no contractures Neuro: no focal neuro deficits Psych: Alert, oriented, appropriate affect Based on my assessment of this patient, this patient meets a high complexity level of care. Patient has an acute diagnosis of V-fib arrest that poses a threat to life or bodily function. Found to have STEMI. Now being worked up for fever. Inferior ST segment elevated myocardial infarction status post PCI to the RCA: ASA 81 mg PO QD. Effient 10 mg PO QD. Lipitor 80 mg PO QHS. Metoprolol 25 mg PO BID. V. fib arrest Cardiomyopathy with ejection fraction 40-45%: Metoprolol as above. Lisinopril 5 mg PO QD. Acute on chronic chest pain: From CPR. Dilaudid 1 mg IV Q3H PRN. Lidocaine patch. MsContin 30 mg PO BID. Oxy IR 15 mg PO BID PRN. Newly discovered prediabetes with A1c 6: ISS. Farxiga 5 mg PO QD. Accuchecks AC HS. Hypoglycemic precautions. Gram positive bacteremia: Left AC cellulitis vs septic arthritis. Vancomycin dosed per pharmacy. ID consulted. Right knee effusion: Orthopedic surgery consult. 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 Nephrology on board. Given salt tab yesterday. Fluid restriction. GERD: Protonix 40 mg PO QD. CODE STATUS: FULL CODE. DVT Prophylaxis: Heparin SQ. GI Prophylaxis: Protonix PO Designated medical POA if patient is not able to make medical decisions for themselves: I have reviewed the following medical economics consultant notes: Cardiology, Nephrology note. I have reviewed the results of the following tests: I have ordered the following tests: CBC, BMP. I have discussed the care of this patient with the following independent historian: I have independently interpreted the following test below: KneeXR as above. I have discussed the management of this patient with the following physician: This patient meets a high level of care for the following reasons: Patient requires vancomycin which requires intensive monitoring for renal to xicity. Objective - Vital Signs Vital signs: Vital Signs Temp 98.7 F 05/25/23 08:00 Pulse 94 05/25/23 08:00 Resp 16 05/25/23 08:00 BP 101/58 05/25/23 08:00 Pulse Ox 93 L 05/25/23 04:00 FiO2 Intake & Output 05/24/23 05/25/23 05/25/23 18:59 06:59 18:59 Intake Total 1600 500 Output Total 730 Balance 1600 -230 Weight 75.9 kg Intake: IV 500 500 Vancomycin 1,500 mg In 500 500 Sodium Chloride 0.9% 500 ml 500 ml @ 167 mls/hr IVPB Q12HR@0800,2200 [facility] Rx#:[id number] Oral 1100 Output: Urine 730 Other: Voiding Method Urinal Urinal # Voids 4 4 - Labs CBC & Chem 7: 05/25/23 07:45 05/25/23 07:45 Labs: Abnormal Lab Results - Last 24 Hours (Table) 05/24/23 05/24/23 05/24/23 Range/Units 11:40 11:56 18:08 Sodium 125 L 124 L (137-145) mmol/L Chloride 92 L (98-107) mmol/L Glucose 113 H (74-99) mg/dL POC Glucose (mg/dL) 146 H (70-110) mg/dL Calcium 7.9 L (8.4-10.2) mg/dL 05/24/23 05/24/23 05/25/23 Range/Units 20:46 23:56 07:14 Sodium 127 L (137-145) mmol/L Chloride (98-107) mmol/L Glucose (74-99) mg/dL POC Glucose (mg/dL) 128 H 163 H (70-110) mg/dL Calcium (8.4-10.2) mg/dL Microbiology - Last 24 Hours (Table) 05/23/23 20:46 Blood Culture Gram Stain - Preliminary Blood 05/23/23 20:44 Blood Culture Gram Stain - Preliminary Blood
--- NOTE | 2023-05-25 14:36 | P.CNOR ---
History of Present Illness - [facility] Consult date: 05/25/23 History of present illness: This is a 67-year-old male that the orthopedic service was consulted to evaluate for right knee pain. Per the patient, he had a recent right total knee arthroplasty performed with Dr. De Leon at [facility] in early January 2023. He states shortly after his initial surgery he had a fall and was found to have a minimally displaced medial femoral condyle fracture that was treated conservatively with immediate weightbearing. He also states he had a cellulitic infection around the knee that was managed with oral antibiotics and cleared on its own. Since then, he has been weightbearing as tolerated without any issues with the knee. He is able to walk and fully weight-bear on the knee and states that the knee for the most part has been at baseline since his admission several days ago. Past Medical History Additional Past Medical History / Comment(s): Knee replacement- jan 2023, then fall with break in leg. Depression History of Any Multi-Drug Resistant Organisms: None Reported Past Surgical History: Orthopedic Surgery Past Anesthesia/Blood Transfusion Reactions: No Reported Reaction Past Psychological History: Anxiety, Depression Smoking Status: Former smoker Past Drug Use History: Marijuana Additional Drug Use History / Comment(s): Marijuana daily - Past Family History Mother Family Medical History: No Reported History Father Family Medical History: Congestive Heart Failure (CHF) Additional Family Medical History / Comment(s): Medications and Allergies Home Medications Medication Instructions Recorded Confirmed Type ALPRAZolam [Xanax] 0.25 mg PO DAILY PRN 05/19/23 05/19/23 History Caffeine Tablet 1 tab PO DAILY PRN 05/19/23 05/19/23 History Gabapentin 800 mg PO TID 05/19/23 05/19/23 History Morphine Sulfate ER [Ms Contin] 30 mg PO Q12HR 05/19/23 05/19/23 History PARoxetine [Paxil] 60 mg PO DAILY 05/19/23 05/19/23 History Tamsulosin HCl [Flomax] 0.4 mg PO DAILY 05/19/23 05/19/23 History oxyCODONE HCL [Oxycodone HCl] 15 mg PO BID 05/19/23 05/19/23 History Empagliflozin [Jardiance] 10 mg PO DAILY #30 tablet 05/23/23 Rx Allergies Allergy/AdvReac Type Severity Reaction Status Date / Time iodine AdvReac Itching Verified 05/19/23 12:57 Physical Examination Osteopathic Statement: *. No significant issues noted on an osteopathic structural exam other than those noted in the History and Physical/Consult. - Knee right Appearance: normal, previous incision (No Erythema, Warmth or obvious effusion. ) Effusion grade: trace Varus alignment in stance: normal Valgus alignment in stance: normal Tenderness with palpation: none Pain: no pain Gait: normal Full ROM: yes ROM: hyperextension: normal ROM: extension: normal ROM: flexion: normal Crepitus with motion: No Strength: extension: 5/5 Strength: flexion: 5/5 Results - Labs Labs: Abnormal Lab Results - Last 24 Hours (Table) 05/24/23 05/24/23 05/24/23 Range/Units 18:08 20:46 23:56 RBC (4.30-5.90) m/uL Hgb (13.0-17.5) gm/dL Hct (39.0-53.0) % RDW (11.5-15.5) % Sodium 124 L 127 L (137-145) mmol/L Chloride 92 L (98-107) mmol/L Carbon Dioxide (22-30) mmol/L Creatinine (0.66-1.25) mg/dL Glucose 113 H (74-99) mg/dL POC Glucose (mg/dL) 128 H (70-110) mg/dL Calcium 7.9 L (8.4-10.2) mg/dL 05/25/23 05/25/23 05/25/23 Range/Units 07:14 07:45 07:45 RBC 3.58 L (4.30-5.90) m/uL Hgb 9.9 L (13.0-17.5) gm/dL Hct 29.3 L (39.0-53.0) % RDW 16.0 H (11.5-15.5) % Sodium 127 L (137-145) mmol/L Chloride 97 L (98-107) mmol/L Carbon Dioxide 21 L (22-30) mmol/L Creatinine 0.63 L (0.66-1.25) mg/dL Glucose 137 H (74-99) mg/dL POC Glucose (mg/dL) 163 H (70-110) mg/dL Calcium 7.8 L (8.4-10.2) mg/dL 05/25/23 Range/Units 11:33 RBC (4.30-5.90) m/uL Hgb (13.0-17.5) gm/dL Hct (39.0-53.0) % RDW (11.5-15.5) % Sodium (137-145) mmol/L Chloride (98-107) mmol/L Carbon Dioxide (22-30) mmol/L Creatinine (0.66-1.25) mg/dL Glucose (74-99) mg/dL POC Glucose (mg/dL) 137 H (70-110) mg/dL Calcium (8.4-10.2) mg/dL Microbiology - Last 24 Hours (Table) 05/23/23 20:44 Blood Culture Gram Stain - Preliminary Blood Blood Culture - Preliminary Presumptive Staph aureus 05/23/23 20:46 Blood Culture Gram Stain - Preliminary Blood Blood Culture - Preliminary Presumptive Staph aureus H & H 05/19/23 05/20/23 05/21/23 Range/Units 08:38 03:08 03:25 Hgb 13.6 12.2 L 11.4 L (13.0-17.5) gm/dL Hct 42.1 37.0 L 34.6 L (39.0-53.0) % 05/22/23 05/23/23 05/24/23 Range/Units 04:03 05:41 04:05 Hgb 11.1 L 11.5 L 11.1 L (13.0-17.5) gm/dL Hct 32.5 L 34.2 L 32.3 L (39.0-53.0) % 05/25/23 Range/Units 07:45 Hgb 9.9 L (13.0-17.5) gm/dL Hct 29.3 L (39.0-53.0) % Coagulation 05/19/23 Range/Units 08:38 INR 1.0 (<1.2) Result Diagrams: 05/25/23 07:45 05/25/23 07:45 Assessment and Plan Assessment: 1.) S/P RTKA in January of [address] De Leon 2.) Chronic periprosthetic medial femoral condyle fracture with no signs of component loosening Plan: 1.) No signs of periprosthetic joint infection on exam today. He has full painless range of motion of the right knee with no erythema, excessive warmth, drainage or instability. His fracture is 4 months old and there are no signs of propagation of the fracture. 2) WBAT with no restrictions 3.) Follow up outpatient with previous surgeon on outpatient basis as previously scheduled. -Reynaldo Li DO Orthopedic Surgeon Time with Patient: Less than 30
[2023-05-25 16:33] LABS: Glucose,Whole Blood 120 mg/dL (70-110)
--- NOTE | 2023-05-25 18:07 | P.PN ---
Subjective Progress Note Date: 05/25/23 The patient is a pleasant 67-year-old gentleman with hypertension and dyslipidemia presented to the emergency department complaining of chest discomfort. He was in his usual state of health until about a few hours when he started experiencing discomfort in the middle of the chest as a pressure on the chest with radiation to the left arm. No associated symptoms of shortness of breath or dizziness or lightheadedness or any feeling of heart racing or fluttering or any presyncope or syncope. His brought the patient to the emergency department where he underwent further workup including an EKG showing inferior ST elevation myocardial infarction. Subsequently underwent an emergent heart catheterization and was found to have acute total occlusion of the RCA distally was extremely large thrombus burden. The patient underwent successful PCI of the RCA with a good angiographic results by the end. After aspiration thrombectomy the thrombus burden has decreased but continues to be there. The patient was placed on Aggrastat and he was sent to the intensive care unit. He was chest pain-free VT has been maintaining normal sinus mechanism. Please note that on the way to the hospital by ambulance the patient did have an episode of cardiac arrest was V. fib and he was cardioverted. Since then he had no more episodes of ventricular fibrillation or ventricular tachycardia. The examinatio n is remarkable for regular rhythm and systolic murmur at the right and left upper sternal border with a clear breathing sounds bilaterally and no lower extremities edema noted. He does have some blood in the right ear after the cardioversion 05/21/2023 Patient is doing well from cardiac vessel standpoint. His right groin appears intact with no swelling or signs of bleeding. He denies any chest pain chest pressure or shortness of breath. He complains of chest wall pain because of chest compressions. His labs and vitals are within normal limits. 05/24/23 Patient is seen and examined at bedside the same. Patient reports some pain in his right knee. He reports he had a knee replacement surgery team as well. It appears slightly swollen and warm to touch. His sodium is 125. He is on fluid restriction as per nephrology team. 05/25/23 Patient is doing well from cardiac vessel standpoint. Patient continues to report chest wall pain from chest compression. He is hemodynamics stable. He is tolerating the cardiac medications. Physical examination Febrile Normal S1 and S2, no cardiac murmurs Good air entry in bilateral lung burn[place] Chest is tender to palpation , no rubs, no murmur, normal s1 and s2 regular Intact bilateral lower extremity pulses. 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 No evidence of rib fracture. No evidence of pericarditis on ECG and physical examination. Patient is cleared to discharge from cardiovascular standpoint. Cardiology team was sign off. Please reconsult us in case of any patient. Plan for outpatient follow-up with Dr. Warren Lidocaine patch for chest wall pain Objective - Vital Signs Vital signs: Vital Signs Temp 96.5 F L 05/25/23 15:42 Pulse 80 05/25/23 15:42 Resp 16 05/25/23 15:42 BP 101/51 05/25/23 15:42 Pulse Ox 96 05/25/23 15:42 FiO2 Intake & Output 05/24/23 05/25/23 05/25/23 18:59 06:59 18:59 Intake Total 1064 857 1021 Output Total 730 1170 Balance 1600 -230 205 Weight 75.9 kg Intake: IV 500 500 500 Vancomycin 1,500 mg In 500 500 500 Sodium Chloride 0.9% 500 ml 500 ml @ 167 mls/hr IVPB Q12HR@0800,2200 [facility] Rx#:[id number] Intake, IV Titration 50 Amount ceFAZolin 2 gm In Sodium 50 Chloride 0.9% 50 ml @ 100 mls/hr IVPB Q8HR [facility] Rx# :[id number] Oral 1100 825 Output: Urine 730 1170 Other: Voiding Method Urinal Urinal Urinal # Voids 4 4 1 - Labs CBC & Chem 7: 05/25/23 07:45 05/25/23 15:00 Labs: Abnormal Lab Results - Last 24 Hours (Table) 05/24/23 05/24/23 05/24/23 Range/Units 18:08 20:46 23:56 RBC (4.30-5.90) m/uL Hgb (13.0-17.5) gm/dL Hct (39.0-53.0) % RDW (11.5-15.5) % Sodium 124 L 127 L (137-145) mmol/L Chloride 92 L (98-107) mmol/L Carbon Dioxide (22-30) mmol/L Creatinine (0.66-1.25) mg/dL Glucose 113 H (74-99) mg/dL POC Glucose (mg/dL) 128 H (70-110) mg/dL Calcium 7.9 L (8.4-10.2) mg/dL 05/25/23 05/25/23 05/25/23 Range/Units 07:14 07:45 07:45 RBC 3.58 L (4.30-5.90) m/uL Hgb 9.9 L (13.0-17.5) gm/dL Hct 29.3 L (39.0-53.0) % RDW 16.0 H (11.5-15.5) % Sodium 127 L (137-145) mmol/L Chloride 97 L (98-107) mmol/L Carbon Dioxide 21 L (22-30) mmol/L Creatinine 0.63 L (0.66-1.25) mg/dL Glucose 137 H (74-99) mg/dL POC Glucose (mg/dL) 163 H (70-110) mg/dL Calcium 7.8 L (8.4-10.2) mg/dL 05/25/23 05/25/23 05/25/23 Range/Units 11:33 15:00 16:31 RBC (4.30-5.90) m/uL Hgb (13.0-17.5) gm/dL Hct (39.0-53.0) % RDW (11.5-15.5) % Sodium 126 L (137-145) mmol/L Chloride (98-107) mmol/L Carbon Dioxide (22-30) mmol/L Creatinine (0.66-1.25) mg/dL Glucose (74-99) mg/dL POC Glucose (mg/dL) 137 H 120 H (70-110) mg/dL Calcium (8.4-10.2) mg/dL Microbiology - Last 24 Hours (Table) 05/23/23 20:44 Blood Culture Gram Stain - Preliminary Blood Blood Culture - Preliminary Presumptive Staph aureus 05/23/23 20:46 Blood Culture Gram Stain - Preliminary Blood Blood Culture - Preliminary Presumptive Staph aureus
[2023-05-25] MEDS ORDERED: VANCOMYCIN 1,750 MG in SODIUM CHLORIDE 0.9% 500 ML 500 ML IVPB SCH (21:00)
[2023-05-25] MEDS: ATORVASTATIN 80 MG TAB PO SCH (21:24)
[2023-05-25] MEDS: SODIUM CHLORIDE TAB 1 GM TAB PO SCH (21:24)
--- NOTE | 2023-05-25 22:19 | P.CONS ---
History of Present Illness - Reason for Consult Consult date: 05/25/23 Bacteremia Requesting physician: Isadora Oquendo - Chief Complaint Pain and discomfort to the left forearm IV site x 2 days - History of Present Illness Patient is a 67-year-old male with a past medical history significant for depression anxiety did have a right knee replacement patient was brought into the hospital about a week ago after EMS was calling at the house because of the patient having episode of shortness of breath and chest pain on the way to the ER apparently the patient did have a cardiac arrest did receive shock x2 and CPR patient has been diagnosed with acute MA patient is status post PTCA and stenting of the distal RCA on 05/19/2023 patient on presentation to the hospital was afebrile however he did spike a fever of 102.1 F on 05/22/2023 and has been running a fever for the last 3 days last temperature was 100.8 around 4 AM patient apparently did have appointment with left antecubital fossa previous site of an IV which has been discontinued patient did have a blood culture drawn which came back positive for Staph aureus patient being treated with vancomycin infectious disease was consulted last night for further management of antibiotic therapy patient mentioning did have a pain and discomfort to the left antecubital fossa where he did have an IV which was discontinued and he was spiking fever he still have some blood aching pain mild to moderate intensity to that area without any radiation patient denies any headache or URI symptoms has been complaining of chest pain because of chest compression and lipid difficulty of to take a deep breath no significant cough no nausea vomiting no abdominal pain no diarrhea no urinary symptoms, patient did have a white count of 19.6 on 05/23/2023 creatinine 0.63 urine has been negative chest x-ray no acute process he also have a knee x-ray, patient mentioning an episode of cellulitis to right knee after surgery that was successfully treated with oral antibiotic therapy apparently he did have some swelling to the right knee yesterday they seem to have improved currently no significant pain or any drainage Review of Systems Positive point and negatives has been mentioned in the HPI, complete review of systems was performed and all other systems are negative Past Medical History Additional Past Medical History / Comment(s): Knee replacement- jan 2023, then fall with break in leg. Depression History of Any Multi-Drug Resistant Organisms: None Reported Past Surgical History: Orthopedic Surgery Past Anesthesia/Blood Transfusion Reactions: No Reported Reaction Past Psychological History: Anxiety, Depression Smoking Status: Former smoker Past Drug Use History: Marijuana Additional Drug Use History / Comment(s): Marijuana daily - Past Family History Mother Family Medical History: No Reported History Father Family Medical History: Congestive Heart Failure (CHF) Additional Family Medical History / Comment(s): Medications and Allergies Home Medications Medication Instructions Recorded Confirmed Type ALPRAZolam [Xanax] 0.25 mg PO DAILY PRN 05/19/23 05/19/23 History Caffeine Tablet 1 tab PO DAILY PRN 05/19/23 05/19/23 History Gabapentin 800 mg PO TID 05/19/23 05/19/23 History Morphine Sulfate ER [Ms Contin] 30 mg PO Q12HR 05/19/23 05/19/23 History PARoxetine [Paxil] 60 mg PO DAILY 05/19/23 05/19/23 History Tamsulosin HCl [Flomax] 0.4 mg PO DAILY 05/19/23 05/19/23 History oxyCODONE HCL [oxyCODONE HCL (IR)] 15 mg PO BID 05/19/23 05/19/23 History Empagliflozin [Jardiance] 10 mg PO DAILY #30 tablet 05/23/23 Rx Acetaminophen Tab [Tylenol] 650 mg PO Q6HR PRN tab 05/30/23 Rx Aspirin 81 mg PO DAILY #30 tab 05/30/23 Rx Atorvastatin [Lipitor] 80 mg PO HS #30 tab 05/30/23 Rx Dapagliflozin Propanediol [Farxiga] 5 mg PO DAILY #30 tab 05/30/23 Rx Metoprolol Tartrate [Lopressor] 25 mg PO BID #60 tab 05/30/23 Rx Nitroglycerin Sl Tabs [Nitrostat] 0.4 mg SUBLINGUAL Q5M PRN #15 tab 05/30/23 Rx Pantoprazole [Protonix] 40 mg PO AC-BRKFST #30 tab 05/30/23 Rx Prasugrel [Effient] 10 mg PO DAILY #30 tab 05/30/23 Rx Sodium Chloride Tab 1 gm PO BID #60 tab 05/30/23 Rx lisinopriL [Zestril] 5 mg PO DAILY #30 tab 05/30/23 Rx Allergies Allergy/AdvReac Type Severity Reaction Status Date / Time iodine AdvReac Itching Verified 05/19/23 12:57 Physical Exam Vitals: Vital Signs Temp Pulse Resp BP BP BP Pulse Ox 05/25/23 08:00 98.7 F 94 16 101/58 05/25/23 04:00 100.8 F H 90 17 101/58 93 L 05/25/23 01:01 90/55 05/25/23 00:00 98.6 F 76 16 88/49 92 L 05/24/23 20:00 99.1 F 79 19 94/58 94 L 05/24/23 16:00 101.8 F H 92 18 106/68 05/24/23 12:00 99.1 F 83 18 119/71 Intake and Output 05/24/23 05/25/23 05/25/23 22:59 06:59 14:59 Intake Total 500 500 650 Output Total 730 570 Balance 500 -230 80 Intake: IV 500 500 Vancomycin 1,500 mg In 500 500 Sodium Chloride 0.9% 500 ml 500 ml @ 167 mls/hr IVPB Q12HR@0800,2200 [facility] Rx#:[id number] Oral 500 150 Output: Urine 730 570 Other: Voiding Method Urinal Urinal Urinal # Voids 4 4 2 Weight 75.9 kg GENERAL DESCRIPTION: Elderly male lying in bed, no distress. No tachypnea or accessory muscle of respiration use. HEENT: Shows Pallor , no scleral icterus. Oral mucous membrane is dry. No pharyngeal erythema or thrush NECK: Trachea central, no thyromegaly. LUNGS: Unlabored breathing. Clear to auscultation anteriorly. No wheeze or crackle. HEART: S1, S2, regular rate and rhythm. No loud murmur ABDOMEN: Soft, no tenderness , guarding or rigidity, no organomegaly EXTREMITIES: Left forearm/antecubital fossa did have a swelling redness induration SKIN: No rash, no masses palpable. NEUROLOGICAL: The patient is awake, alert, oriented x3, mood and affect normal. Results CBC & Chem 7: 05/29/23 04:21 05/30/23 08:15 Labs: Abnormal Lab Results - Last 24 Hours (Table) 05/24/23 05/24/23 05/24/23 Range/Units 11:40 11:56 18:08 RBC (4.30-5.90) m/uL Hgb (13.0-17.5) gm/dL Hct (39.0-53.0) % RDW (11.5-15.5) % Sodium 125 L 124 L (137-145) mmol/L Chloride 92 L (98-107) mmol/L Carbon Dioxide (22-30) mmol/L Creatinine (0.66-1.25) mg/dL Glucose 113 H (74-99) mg/dL POC Glucose (mg/dL) 146 H (70-110) mg/dL Calcium 7.9 L (8.4-10.2) mg/dL 05/24/23 05/24/23 05/25/23 Range/Units 20:46 23:56 07:14 RBC (4.30-5.90) m/uL Hgb (13.0-17.5) gm/dL Hct (39.0-53.0) % RDW (11.5-15.5) % Sodium 127 L (137-145) mmol/L Chloride (98-107) mmol/L Carbon Dioxide (22-30) mmol/L Creatinine (0.66-1.25) mg/dL Glucose (74-99) mg/dL POC Glucose (mg/dL) 128 H 163 H (70-110) mg/dL Calcium (8.4-10.2) mg/dL 05/25/23 05/25/23 Range/Units 07:45 07:45 RBC 3.58 L (4.30-5.90) m/uL Hgb 9.9 L (13.0-17.5) gm/dL Hct 29.3 L (39.0-53.0) % RDW 16.0 H (11.5-15.5) % Sodium 127 L (137-145) mmol/L Chloride 97 L (98-107) mmol/L Carbon Dioxide 21 L (22-30) mmol/L Creatinine 0.63 L (0.66-1.25) mg/dL Glucose 137 H (74-99) mg/dL POC Glucose (mg/dL) (70-110) mg/dL Calcium 7.8 L (8.4-10.2) mg/dL Microbiology - Last 24 Hours (Table) 05/23/23 20:44 Blood Culture Gram Stain - Preliminary Blood Blood Culture - Preliminary Presumptive Staph aureus 11/30/23 20:46 Blood Culture Gram Stain - Preliminary Blood Blood Culture - Preliminary Presumptive Staph aureus Assessment and Plan (1) Phlebitis Current Visit: Yes Status: Acute Code(s): I80.9 - PHLEBITIS AND THROMBOPHLE BITIS OF UNSPECIFIED SITE SNOMED Code(s): 97358534 (2) MSSA bacteremia Current Visit: Yes Status: Acute Code(s): R78.81 - BACTEREMIA; B95.61 - METHICILLIN SUSCEP STAPH INFCT CAUSING DIS CLASSD ELSWHR SNOMED Code(s): 278520268 (3) Sepsis Current Visit: Yes Status: Acute Code(s): A41.9 - SEPSIS, UNSPECIFIED ORGANISM SNOMED Code(s): 05606911 Plan: 1patient with an episode of sepsis in this patient who did have a fever elevated white count with evidence of MSSA bacteremia source likely left ar m/antecubital fossa IV site infection that has been discontinued patient did have a prosthetic right knee, with some swelling minimal warmth was noticed but no significant redness clinically doubt source of this bacteremia however risk of seeding from this bacteremia 2-blood cultures will be repeated document clearance of his bacteremia and also check inflammatory markers 3-discontinue vancomycin decrease risk of nephrotoxicity 4-we will start the patient on cefazolin 2 g every 8 hours at the bedside multiple questions concerns were answered We will follow on clinical condition and cultures to further adjust medication if needed Thank you for this consultation we will follow the patient along with you Dictation was produced using [employer] dictation software. please excuse any grammatical, word or spelling errors. Time with Patient: Greater than 30
[2023-05-26] MEDS: HEPARIN SODIUM,PORCINE 5,000 UNIT/ML 1 ML VIAL SQ SCH ×3 (00:49→15:27)
[2023-05-26] MEDS: HYDROmorphone 1 MG/ML 1 ML SYRINGE IVP PRN ×5 (00:49→21:33)
[2023-05-26 04:40] LABS: Anisocytosis Slight; HCT 31.9 % (39.0-53.0); HGB 10.6 gm/dL (13.0-17.5); MCH 27.2 pg (25.0-35.0); MCHC 33.2 g/dL (31.0-37.0); MCV 81.8 fL (80.0-100.0); Mean Platelet Volume 8.8; Platelet Count 189 k/uL (150-450); RDW 16.1 % (11.5-15.5); WBC 14.7 k/uL (3.8-10.6)
[2023-05-26 04:50] LABS: African American GFR (CKD) >90 (>60 ml/min/1.73 sqM); Anion Gap 14 mmol/L; Blood Urea Nitrogen 15 mg/dL (9-20); Calcium 8.6 mg/dL (8.4-10.2); Carbon Dioxide 25 mmol/L (22-30); Chloride 96 mmol/L (98-107); Glucose 98 mg/dL (74-99); Non-African American GFR(CKD) >90 (>60 ml/min/1.73 sqM); Potassium 4.1 mmol/L (3.5-5.1); Sodium 135 mmol/L (137-145)
[2023-05-26 04:57] LABS: African American GFR (CKD) >90 (>60 ml/min/1.73 sqM); Non-African American GFR(CKD) >90 (>60 ml/min/1.73 sqM)
[2023-05-26 05:08] LABS: C Reactive Protein 25.5 mg/dL (<1.0)
[2023-05-26] MEDS: INSULIN ASPART (NovoLOG) 100 UNIT/ML VIAL SQ SCH ×4 (06:57→22:12)
[2023-05-26 06:58] LABS: Glucose,Whole Blood 112 mg/dL (70-110)
[2023-05-26] MEDS: PANTOPRAZOLE 40 MG TABLET PO SCH (07:06)
[2023-05-26] MEDS: LIDOCAINE 4% PATCH TOPICAL SCH (08:21)
[2023-05-26] MEDS: MORPHINE SULFATE ER 30 MG TABLET PO SCH ×2 (08:22→20:11)
[2023-05-26] MEDS: PRASUGREL 10 MG TAB PO SCH (08:22)
[2023-05-26] MEDS: GABAPENTIN 400 MG CAP PO SCH ×3 (08:23→20:12)
[2023-05-26] MEDS: ASPIRIN 81 MG PO SCH (08:23)
[2023-05-26] MEDS: PARoxetine 20 MG TAB PO SCH (08:23)
[2023-05-26] MEDS: METOPROLOL TARTRATE 25 MG TAB PO SCH ×2 (08:23→20:12)
[2023-05-26] MEDS: SODIUM CHLORIDE TAB 1 GM TAB PO SCH (08:24)
[2023-05-26] MEDS: DAPAGLIFLOZIN PROPANEDIOL 5 MG TABLET PO SCH (08:24)
[2023-05-26] MEDS: TAMSULOSIN 0.4 MG CAP.ER.24H PO SCH (08:24)
[2023-05-26] MEDS: lisinopriL 5 MG TAB PO SCH (08:24)
[2023-05-26] MEDS: CALCIUM CARBONATE 500 MG CHEWABLE PO PRN (08:34)
--- NOTE | 2023-05-26 11:12 | P.PN ---
Subjective Patient is seen for follow-up for hyponatremia. IV fluids were discontinued as serum sodium had decreased over the last 2 days. Status post sodium chloride tabs and sodium is up to 135 today. Blood cultures are growing gram-positive cocci in clusters History of right knee infection as well as infection at the IV site. Objective - Vital Signs Vital signs: Vital Signs Temp 98.7 F 05/26/23 04:00 Pulse 82 05/26/23 04:00 Resp 14 05/26/23 04:00 BP 108/65 05/26/23 04:00 Pulse Ox 98 05/26/23 04:00 FiO2 Intake & Output 05/25/23 05/26/23 05/26/23 18:59 06:59 18:59 Intake Total 1375 508 Output Total 1170 1300 Balance 205 -792 Weight 77.1 kg Intake: IV 500 Vancomycin 1,500 mg In 500 Sodium Chloride 0.9% 500 ml 500 ml @ 167 mls/hr IVPB Q12HR@0800,2200 [facility] Rx#:[id number] Intake, IV Titration 50 Amount ceFAZolin 2 gm In Sodium 50 Chloride 0.9% 50 ml @ 100 mls/hr IVPB Q8HR [facility] Rx# :[id number] Oral 825 508 Output: Urine 1170 1300 Other: Voiding Method Urinal Urinal # Voids 1 - Exam Patient is awake, comfortable, no acute distress Examination of the heart S1 and S2 Examination the lungs bilateral breath sounds are heard Abdomen is soft nontender Examination lower extremity shows no evidence of edema [employer] exam grossly intact - Labs CBC & Chem 7: 05/26/23 04:12 05/26/23 04:12 Labs: Abnormal Lab Results - Last 24 Hours (Table) 05/25/23 05/25/23 05/25/23 Range/Units 11:33 15:00 16:31 WBC (3.8-10.6) k/uL RBC (4.30-5.90) m/uL Hgb (13.0-17.5) gm/dL Hct (39.0-53.0) % RDW (11.5-15.5) % ESR (0-20) mm/Hr Sodium 126 L (137-145) mmol/L Chloride (98-107) mmol/L POC Glucose (mg/dL) 137 H 120 H (70-110) mg/dL C-Reactive Protein (<1.0) mg/dL 05/26/23 05/26/23 05/26/23 Range/Units 04:12 04:12 04:12 WBC 14.7 H (3.8-10.6) k/uL RBC 3.90 L (4.30-5.90) m/uL Hgb 10.6 L (13.0-17.5) gm/dL Hct 31.9 L (39.0-53.0) % RDW 16.1 H (11.5-15.5) % ESR 48 H (0-20) mm/Hr Sodium (137-145) mmol/L Chloride (98-107) mmol/L POC Glucose (mg/dL) (70-110) mg/dL C-Reactive Protein 25.5 H (<1.0) mg/dL 05/26/23 05/26/23 Range/Units 04:12 06:56 WBC (3.8-10.6) k/uL RBC (4.30-5.90) m/uL Hgb (13.0-17.5) gm/dL Hct (39.0-53.0) % RDW (11.5-15.5) % ESR (0-20) mm/Hr Sodium 135 L (137-145) mmol/L Chloride 96 L (98-107) mmol/L POC Glucose (mg/dL) 112 H (70-110) mg/dL C-Reactive Protein (<1.0) mg/dL Microbiology - Last 24 Hours (Table) 05/23/23 20:44 Blood Culture Gram Stain - Preliminary Blood Blood Culture - Preliminary Presumptive Staph aureus 05/23/23 20:46 Blood Culture Gram Stain - Preliminary Blood Blood Culture - Preliminary Presumptive Staph aureus Assessment and Plan Assessment: 1. 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 GFR at baseline. Urine sodium 59 and urine osmolality 640. TSH normal. Improved sodium chloride tabs and fluid restriction. 2. STEMI status post cardiac catheterization with stent to the RCA in 05/19/2023. 3. IV site infection on antibiotics. Previous history of right knee infection. Blood cultures are growing gram-positive cocci in clusters. 4. Staph aureus bacteremia maintained on cefazolin, being followed by ID Plan: Continue off of IV fluids Decrease sodium chloride tablet to once a day Continue antibiotics as per ID
[2023-05-26 11:56] LABS: Glucose,Whole Blood 103 mg/dL (70-110)
--- NOTE | 2023-05-26 13:16 | P.PN ---
Subjective Progress Note Date: 05/26/23 Principal diagnosis: Reason for follow-up is MSSA bacteremia Patient is a 67-year-old male with a past medical history significant for depression anxiety did have a right knee replacement patient was brought into the hospital with [id number] cardiac arrest did have UT requiring PTCA and stenting of the RCA patient did develop fever and MSSA bacteremia likely related to the left antecubital fossa IV site infection On today's evaluation that is 05/26/2023, the patient denies any fever or chills, the patient is breathing comfortably on room air patient is hemody namically stable has been complaining of chest pain most related to the compression denies any worsening of his progression or pain to the right knee area left antecubital fossa IV site swelling redness has decreased no drainage. Patient white count 14.7, creatinine 0.67 blood culture repeat currently pending Objective - Vital Signs Vital signs: Vital Signs Temp 98.7 F 05/26/23 04:00 Pulse 82 05/26/23 04:00 Resp 14 05/26/23 04:00 BP 108/65 05/26/23 04:00 Pulse Ox 98 05/26/23 04:00 FiO2 Intake & Output 05/25/23 05/26/23 05/26/23 18:59 06:59 18:59 Intake Total 1375 508 Output Total 1170 1300 Balance 205 -792 Weight 77.1 kg Intake: IV 500 Vancomycin 1,500 mg In 500 Sodium Chloride 0.9% 500 ml 500 ml @ 167 mls/hr IVPB Q12HR@0800,2200 [facility] Rx#:[id number] Intake, IV Titration 50 Amount ceFAZolin 2 gm In Sodium 50 Chloride 0.9% 50 ml @ 100 mls/hr IVPB Q8HR [facility] Rx# :[id number] Oral 825 508 Output: Urine 1170 1300 Other: Voiding Method Urinal Urinal # Voids 1 - Exam GENERAL DESCRIPTION: An elderly male lying in bed in no distress RESPIRATORY SYSTEM: Unlabored breathing , clear to auscultation anteriorly HEART: S1 S2 regular rate and rhythm , ABDOMEN: Soft , no tenderness EXTREMITIES: No edema feet - Labs CBC & Chem 7: 05/26/23 04:12 05/26/23 04:12 Labs: Abnormal Lab Results - Last 24 Hours (Table) 12/08/1605/25/23 05/25/23 Range/Units 11:33 15:00 16:31 WBC (3.8-10.6) k/uL RBC (4.30-5.90) m/uL Hgb (13.0-17.5) gm/dL Hct (39.0-53.0) % RDW (11.5-15.5) % Sodium 126 L (137-145) mmol/L Chloride (98-107) mmol/L POC Glucose (mg/dL) 137 H 120 H (70-110) mg/dL C-Reactive Protein (<1.0) mg/dL 05/26/23 05/26/23 05/26/23 Range/Units 04:12 04:12 04:12 WBC 14.7 H (3.8-10.6) k/uL RBC 3.90 L (4.30-5.90) m/uL Hgb 10.6 L (13.0-17.5) gm/dL Hct 31.9 L (39.0-53.0) % RDW 16.1 H (11.5-15.5) % Sodium 135 L (137-145) mmol/L Chloride 96 L (98-107) mmol/L POC Glucose (mg/dL) (70-110) mg/dL C-Reactive Protein 25.5 H (<1.0) mg/dL 05/26/23 Range/Units 06:56 WBC (3.8-10.6) k/uL RBC (4.30-5.90) m/uL Hgb (13.0-17.5) gm/dL Hct (39.0-53.0) % RDW (11.5-15.5) % Sodium (137-145) mmol/L Chloride (98-107) mmol/L POC Glucose (mg/dL) 112 H (70-110) mg/dL C-Reactive Protein (<1.0) mg/dL Microbiology - Last 24 Hours (Table) 05/23/23 20:44 Blood Culture Gram Stain - Preliminary Blood Blood Culture - Preliminary Presumptive Staph aureus 05/23/23 20:46 Blood Culture Gram Stain - Preliminary Blood Blood Culture - Preliminary Presumptive Staph aureus Assessment and Plan (1) MSSA bacteremia Current Visit: Yes Status: Acute Code(s): R78.81 - BACTEREMIA; B95.61 - METHICILLIN SUSCEP STAPH INFCT CAUSING DIS CLASSD ELSWHR SNOMED Code(s): 654093021 Plan: 1patient with an episode of sepsis in this patient who did have a fever elevated white count with evidence of MSSA bacteremia source likely left arm/antecubital fossa IV site infection that has been discontinued patient did have a prosthetic right knee, with some swelling minimal warmth was noticed but no significant redness clinically doubt source of this bacteremia however risk of seeding from this bacteremia 2-blood cultures has been repeated to document clearance of his bacteremia , p alan did have a CRP of 25.5 and a sed rate of 48 3Patient to continue with cefazolin 2 g every 8 hours, will need a midline once he clears his bacteremia for outpatient antibiotic at the bedside multiple questions concerns were answered Dictation was produced using [employer] dictation software. please excuse any grammatical, word or spelling errors. Time with Patient: Less than 30
--- NOTE | 2023-05-26 13:28 | P.PN ---
Subjective Progress Note Date: 05/26/23 Patient is a 67-year-old male with chronic back pain on opiate therapy, depression, and osteoarthritis who presented to the emergency department with complaints of chest pain. Patient was brought in via EMS and while en route hospital had a brief ventricular fibrillation arrest requiring CPR and defibril lation. On arrival patient was noted have an ST segment elevated myocardial infarction. EKG revealed ST segment elevation in the inferior leads. Initial laboratory analysis on arrival was remarkable for glucose of 256. Initial chest x-ray showed no acute cardiopulmonary process. Patient underwent an emergent heart cath which showed a total occlusion of the RCA with large thrombus burden which was successfully stented with good angiographic results. He was subsequently placed on aspirin, statin, and Effient. Patient was admitted to the ICU. Echocardiogram demonstrated an ejection fraction of 40-45% with inferior hypokinesis. Patient was being evaluated for possible discharge when he spiked a fever of 102.1. At that time, chest x-ray showed no acute process, urinalysis negative, EKG without signs of pericarditis. COVID/Flu/RSV negative. Patient continued to spike fevers on 05/23. He was found to have left AC superficial thrombophelbitis with surrounding cellulitis. Blood cultures were obtained. He was started on IV vancomycin. 05/25 Tmax 101.8F over the past 24H. BCx + for gram positive cocci in clusters. Antibiotics include Vancomycin. Knee XR ordered for swollen R knee which shows fracture of the medial femoral condyle with large joint effusion. Orthopedic surgery and ID has been consulted. 05/26 Patient was seen and examined. Patient reports better controlled chest pain. reports patient is seeing things that isnt there. Tmax 100.8F since 05/25. BCx shows presumptive staph. CBC WBC 14.7 Hg 10.6. BMP Na 136, Cl 96. CRP 25.5. Orthopedic surgery consulted for possible septic arthritis, no signs of periprosthetic joint infection, outpatient follow up. ID consulted, Vancomycin switched to Cefazolin 2g IV TID. General: non toxic, no distress, appears at stated age Derm: warm, dry Head: atraumatic, normocephalic, symmetric Eyes: EOMI, no lid lag, anicteric sclera Cardiovascular: S1S2 reg, no murmur Lungs: CTA bilateral, no rhonchi, no rales, no accessory muscle use Ext: no gross muscle atrophy, no edema, no contractures Neuro: no focal neuro deficits Psych: Alert, oriented, appropriate affect Based on my assessment of this patient, this patient meets a high complexity level of care. Patient has an acute diagnosis of V-fib arrest that poses a threat to life or bodily function. Found to have STEMI. Now being worked up for fever. Delirium: Likely due to oversedation from opiates. Decreased Dilaudid to 1mg IV Q6H PRN. Staph bacteremia: Left AC cellulitis. Less likely septic arthritis. Vancomycin (05/23-05/25) switched to Cefazolin (05/25). Repeat blood culture. ID on board. Inferior ST segment elevated myocardial infarction status post PCI to the RCA: ASA 81 mg PO QD. Effient 10 mg PO QD. Lipitor 80 mg PO QHS. Metoprolol 25 mg PO BID. V. fib arrest Cardiomyopathy with ejection fraction 40-45%: Metoprolol as above. Lisinopril 5 mg PO QD. Acute on chronic chest pain: From CPR. Dilaudid 1 mg IV Q6H PRN. Lidocaine patch. MsContin 30 mg PO BID. Oxy IR switched to 15 mg PO Q6H PRN. Newly discovered prediabetes with A1c 6: ISS. Farxiga 5 mg PO QD. Accuchecks ACHS. Hypoglycemic precautions. Right knee effusion: Orthopedic surgery consult. 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 Nephrology on board. NaCl 1g PO BID. Fluid restriction. GERD: Protonix 40 mg PO QD. CODE STATUS: FULL CODE. DVT Prophylaxis: Heparin SQ. GI Prophylaxis: Protonix PO Designated medical POA if patient is not able to make medical decisions for themselves: I have reviewed the following sr. consultant notes: Cardiology, ID, Orthopedic, Nephrology note. I have reviewed the results of the following tests: CBC, BMP, CRP I have ordered the following tests: CBC, BMP. BCx. I have discussed the care of this patient with the following independent historian: I have independently interpreted the following test below: I have discussed the management of this patient with the following physician: This patient meets a high level of care for the following reasons: Patient requires IV narcotics which requires intensive monitoring for respiratory depression. Objective - Vital Signs Vital signs: Vital Signs Temp 98.7 F 05/26/23 04:00 Pulse 82 05/26/23 04:00 Resp 14 05/26/23 04:00 BP 108/65 05/26/23 04:00 Pulse Ox 98 05/26/23 04:00 FiO2 Intake & Output 05/25/23 05/26/23 05/26/23 18:59 06:59 18:59 Intake Total 1375 508 Output Total 1170 1300 Balance 205 -792 Weight 77.1 kg Intake: IV 500 Vancomycin 1,500 mg In 500 Sodium Chloride 0.9% 500 ml 500 ml @ 167 mls/hr IVPB Q12HR@0800,2200 [facility] Rx#:[id number] Intake, IV Titration 50 Amount ceFAZolin 2 gm In Sodium 50 Chloride 0.9% 50 ml @ 100 mls/hr IVPB Q8HR [facility] Rx# :[id number] Oral 825 508 Output: Urine 1170 1300 Other: Voiding Method Urinal Urinal # Voids 1 - Labs CBC & Chem 7: 05/26/23 04:12 05/26/23 04:12 Labs: Abnormal Lab Results - Last 24 Hours (Table) 05/25/23 05/25/23 05/25/23 Range/Units 07:45 07:45 11:33 WBC (3.8-10.6) k/uL RBC 3.58 L (4.30-5.90) m/uL Hgb 9.9 L (13.0-17.5) gm/dL Hct 29.3 L (39.0-53.0) % RDW 16.0 H (11.5-15.5) % Sodium 127 L (137-145) mmol/L Chloride 97 L (98-107) mmol/L Carbon Dioxide 21 L (22-30) mmol/L Creatinine 0.63 L (0.66-1.25) mg/dL Glucose 137 H (74-99) mg/dL POC Glucose (mg/dL) 137 H (70-110) mg/dL Calcium 7.8 L (8.4-10.2) mg/dL C-Reactive Protein (<1.0) mg/dL 05/25/23 05/25/23 05/26/23 Range/Units 15:00 16:31 04:12 WBC (3.8-10.6) k/uL RBC (4.30-5.90) m/uL Hgb (13.0-17.5) gm/dL Hct (39.0-53.0) % RDW (11.5-15.5) % Sodium 126 L (137-145) mmol/L Chloride (98-107) mmol/L Carbon Dioxide (22-30) mmol/L Creatinine (0.66-1.25) mg/dL Glucose (74-99) mg/dL POC Glucose (mg/dL) 120 H (70-110) mg/dL Calcium (8.4-10.2) mg/dL C-Reactive Protein 25.5 H (<1.0) mg/dL 05/26/23 05/26/23 05/26/23 Range/Units 04:12 04:12 06:56 WBC 14.7 H (3.8-10.6) k/uL RBC 3.90 L (4.30-5.90) m/uL Hgb 10.6 L (13.0-17.5) gm/dL Hct 31.9 L (39.0-53.0) % RDW 16.1 H (11.5-15.5) % Sodium 135 L (137-145) mmol/L Chloride 96 L (98-107) mmol/L Carbon Dioxide (22-30) mmol/L Creatinine (0.66-1.25) mg/dL Glucose (74-99) mg/dL POC Glucose (mg/dL) 112 H (70-110) mg/dL Calcium (8.4-10.2) mg/dL C-Reactive Protein (<1.0) mg/dL Microbiology - Last 24 Hours (Table) 05/23/23 20:44 Blood Culture Gram Stain - Preliminary Blood Blood Culture - Preliminary Presumptive Staph aureus 05/23/23 20:46 Blood Culture Gram Stain - Preliminary Blood Blood Culture - Preliminary Presumptive Staph aureus
[2023-05-26] MEDS: MUPIROCIN 2% OINT 22 GM TUBE TOPICAL SCH ×3 (14:00→22:12)
[2023-05-26 16:32] LABS: Glucose,Whole Blood 131 mg/dL (70-110)
[2023-05-26] MEDS: ATORVASTATIN 80 MG TAB PO SCH (20:11)
[2023-05-26] MEDS: ALPRAZolam 0.25 MG TAB PO PRN (20:11)
[2023-05-26 20:18] LABS: Glucose,Whole Blood 128 mg/dL (70-110)
[2023-05-27] MEDS: HEPARIN SODIUM,PORCINE 5,000 UNIT/ML 1 ML VIAL SQ SCH ×4 (00:29→23:11)
[2023-05-27] MEDS: HYDROmorphone 1 MG/ML 1 ML SYRINGE IVP PRN ×4 (03:39→22:27)
[2023-05-27 04:20] LABS: Anisocytosis Slight; HCT 31.2 % (39.0-53.0); HGB 10.6 gm/dL (13.0-17.5); MCH 28.3 pg (25.0-35.0); MCV 83.1 fL (80.0-100.0); Platelet Count 228 k/uL (150-450); RBC 3.76 m/uL (4.30-5.90); RDW 16.5 % (11.5-15.5); WBC 11.9 k/uL (3.8-10.6)
[2023-05-27 04:43] LABS: African American GFR (CKD) >90 (>60 ml/min/1.73 sqM); Anion Gap 7 mmol/L; Blood Urea Nitrogen 17 mg/dL (9-20); Calcium 8.4 mg/dL (8.4-10.2); Carbon Dioxide 29 mmol/L (22-30); Chloride 94 mmol/L (98-107); Glucose 104 mg/dL (74-99); Non-African American GFR(CKD) >90 (>60 ml/min/1.73 sqM); Sodium 130 mmol/L (137-145)
[2023-05-27 07:03] LABS: Glucose,Whole Blood 114 mg/dL (70-110)
[2023-05-27] MEDS: INSULIN ASPART (NovoLOG) 100 UNIT/ML VIAL SQ SCH ×4 (07:05→20:26)
[2023-05-27] MEDS: PANTOPRAZOLE 40 MG TABLET PO SCH (07:06)
[2023-05-27] MEDS: MORPHINE SULFATE ER 30 MG TABLET PO SCH ×2 (08:58→20:25)
[2023-05-27] MEDS: PARoxetine 20 MG TAB PO SCH (08:59)
[2023-05-27] MEDS: GABAPENTIN 400 MG CAP PO SCH ×3 (08:59→20:25)
[2023-05-27] MEDS: PRASUGREL 10 MG TAB PO SCH (08:59)
[2023-05-27] MEDS: TAMSULOSIN 0.4 MG CAP.ER.24H PO SCH (09:00)
[2023-05-27] MEDS ORDERED: SODIUM CHLORIDE TAB 1 GM TAB PO SCH (09:00)
[2023-05-27] MEDS: ASPIRIN 81 MG PO SCH (09:00)
[2023-05-27] MEDS: LIDOCAINE 4% PATCH TOPICAL SCH (09:17)
[2023-05-27] MEDS: METOPROLOL TARTRATE 25 MG TAB PO SCH ×2 (09:17→20:26)
[2023-05-27] MEDS: lisinopriL 5 MG TAB PO SCH (09:17)
[2023-05-27] MEDS: DAPAGLIFLOZIN PROPANEDIOL 5 MG TABLET PO SCH (09:17)
[2023-05-27] MEDS: MUPIROCIN 2% OINT 22 GM TUBE TOPICAL SCH ×3 (09:17→20:53)
[2023-05-27] MEDS: CALCIUM CARBONATE 500 MG CHEWABLE PO PRN ×2 (09:23→20:49)
[2023-05-27] MEDS: MAGNESIUM HYDROXIDE 2,400 MG/30 ML CUP PO PRN ×2 (09:23→10:43)
[2023-05-27] MEDS: ACETAMINOPHEN TAB 325 MG TAB PO PRN ×2 (10:09→20:25)
--- NOTE | 2023-05-27 11:07 | P.PN ---
Subjective Patient is seen for follow-up for hyponatremia. sodium has improved with sodium chloride tablets. Sodium at 131 today. Blood cultures are growing staph aureus History of right knee infection as well as infection at the IV site. Objective - Vital Signs Vital signs: Vital Signs Temp 98.8 F 05/27/23 08:00 Pulse 75 05/27/23 08:00 Resp 16 05/27/23 08:00 BP 108/62 05/27/23 08:00 Pulse Ox 95 05/27/23 08:00 FiO2 Intake & Output 05/26/23 05/27/23 05/27/23 18:59 06:59 18:59 Intake Total 50 120 50 Output Total 950 750 Balance -900 -630 50 Weight 76.6 kg Intake: Intake, IV Titration 50 50 Amount ceFAZolin 2 gm In Sodium 50 50 Chloride 0.9% 50 ml @ 100 mls/hr IVPB Q8HR [facility] Rx# :[id number] Oral 120 Output: Urine 950 750 Other: Voiding Method Toilet Toilet Toilet Urinal Urinal Urinal # Voids 3 2 1 - Exam Patient is awake, comfortable, no acute distress he is currently in the restroom sitting on the commode. 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 - Labs CBC & Chem 7: 05/27/23 03:37 05/27/23 03:37 Labs: Abnormal Lab Results - Last 24 Hours (Table) 05/26/23 05/26/23 05/26/23 Range/Units 04:12 16:30 20:16 WBC (3.8-10.6) k/uL RBC (4.30-5.90) m/uL Hgb (13.0-17.5) gm/dL Hct (39.0-53.0) % RDW (11.5-15.5) % ESR 48 H (0-20) mm/Hr Sodium (137-145) mmol/L Chloride (98-107) mmol/L Glucose (74-99) mg/dL POC Glucose (mg/dL) 131 H 128 H (70-110) mg/dL 05/27/23 05/27/23 05/27/23 Range/Units 03:37 03:37 07:01 WBC 11.9 H (3.8-10.6) k/uL RBC 3.76 L (4.30-5.90) m/uL Hgb 10.6 L (13.0-17.5) gm/dL Hct 31.2 L (39.0-53.0) % RDW 16.5 H (11.5-15.5) % ESR (0-20) mm/Hr Sodium 130 L (137-145) mmol/L Chloride 94 L (98-107) mmol/L Glucose 104 H (74-99) mg/dL POC Glucose (mg/dL) 114 H (70-110) mg/dL Microbiology - Last 24 Hours (Table) 05/25/23 07:45 Blood Culture Gram Stain - Preliminary Blood Blood Culture - Preliminary Presumptive Staph aureus 05/23/23 20:44 Blood Culture Gram Stain - Final Blood Blood Culture - Final Staphylococcus aureus 05/23/23 20:46 Blood Culture Gram Stain - Final Blood Blood Culture - Final Staphylococcus aureus Assessment and Plan Assessment: 1. 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 GFR at baseline. Urine sodium 59 and urine osmolality 640. TSH normal. Improved sodium chloride tabs and fluid restriction. 2. STEMI status post cardiac catheterization with stent to the RCA in 3. 3. IV site infection on antibiotics. Previous history of right knee infection. Blood cultures are growing gram-positive cocci in clusters. 4. Staph aureus bacteremia maintained on cefazolin, being followed by ID Plan: increase sodium chloride tabs 2 twice a day and repeat labs in a.m. May change fluid restriction to 1500 ML
[2023-05-27 11:13] LABS: Glucose,Whole Blood 141 mg/dL (70-110)
--- NOTE | 2023-05-27 14:30 | P.PN ---
Subjective Progress Note Date: 05/27/23 Patient complains of superficial chest pain with new bumps surrounded by redness at the site of his CPR. Gen: awake, alert HEENT: normocephalic, atraumatic, good hearing acuity, moist mucous membranes Resp: good air exchange, breathing comfortably with no accessory muscle use CVS: good distal perfusion x 4, GI: soft, NTTP, ND : no SPT, no CVAT, garcia catheter not present MSK: no pitting edema, no clubbing, superficial palpable masses on either side of the sternum with mild erythema Neuro: non-focal, moving all extremities Psych: cooperative, euthymic mood Hospital course: Patient is a 67-year-old male with chronic back pain on opiate therapy, depression, and osteoarthritis who presented to the emergency department with complaints of chest pain. Patient was brought in via EMS and while en route hospital had a brief ventricular fibrillation arrest requiring CPR and defibrillation. On arrival patient was noted have an ST segment elevated myocardial infarction. EKG revealed ST segment elevation in the inferior leads. Initial laboratory analysis on arrival was remarkable for glucose of 256. Initial chest x-ray showed no acute cardiopulmonary process. Patient underwent an emergent heart cath which showed a total occlusion of the RCA with large thrombus burden which was successfully stented with good angiographic results. He was subsequently placed on aspirin, statin, and Effient. Patient was admitted to the ICU. Echocardiogram demonstrated an ejection fraction of 40-45% with inferior hypokinesis. Patient was being evaluated for possible discharge when he spiked a fever of 102.1. At that time, chest x-ray showed no acute process, urinalysis negative, EKG without signs of pericarditis. COVID/Flu/RSV negative. Patient continued to spike fevers on 05/23. He was found to have left AC superficial thrombophelbitis with surrounding cellulitis. Blood cultures were obtained. He was started on IV vancomycin. 05/25 Tmax 101.8F over the past 24H. BCx + for gram positive cocci in clusters. Antibiotics include Vancomycin. Knee XR ordered for swollen R knee which shows fracture of the medial femoral condyle with large joint effusion. Orthopedic surgery and ID has been consulted. 05/26 Patient was seen and examined. Patient reports better controlled chest pain. reports patient is seeing things that isnt there. Tmax 100.8F since 05/25. BCx shows presumptive staph. CBC WBC 14.7 Hg 10.6. BMP Na 136, Cl 96. CRP 25.5. Orthopedic surgery consulted for possible septic arthritis, no signs of periprosthetic joint infection, outpatient follow up. ID consulted, Vancomycin switched to Cefazolin 2g IV TID. Assessment/plan: Sepsis secondary to MSSA Bacteremia Right Knee Effusion -Continue cefazolin 2g q8h -ID consult appreciated, discussed with them today, and plan is for CT chest to further characterize soft tissue masses, and rule out sternal fracture -BCx from 05/25 remain positive -BCx from 05/26 show no growth at 24 hours -Source possibly left AC cellulitis, however, further workup should be considered to identify alternate source given bacteremia for at least 4 days. -ortho consult note reviewed 05/27, they ruled out sylvia-prosthetic joint infection Delirium: Acute on chronic chest pain: From CPR. - Likely due to oversedation from opiates. Decreased Dilaudid to 1mg IV Q6H PRN. No opiate changes made today - Dilaudid 1 mg IV Q6H PRN. Lidocaine patch. MsContin 30 mg PO BID. Oxy IR switched to 15 mg PO Q6H PRN. Inferior ST segment elevated myocardial infarction status post PCI to the RCA: V. fib arrest, ischemic insult was precipitating factor Cardiomyopathy with ejection fraction 40-45%: - ASA 81 mg PO QD. Effient 10 mg PO QD. Lipitor 80 mg PO QHS. Metoprolol 25 mg PO BID. - Lisinopril 5 mg PO QD. Newly discovered prediabetes with A1c 6: ISS. Farxiga 5 mg PO QD. Accuchecks ACHS. Hypoglycemic precautions. 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 Nephrology on board. NaCl 1g PO BID. Fluid restriction. GERD: Protonix 40 mg PO QD. CODE STATUS: FULL CODE. DVT Prophylaxis: Heparin SQ. GI Prophylaxis: Protonix PO Designated medical POA if patient is not able to make medical decisions for themselves: Objective - Vital Signs Vital signs: Vital Signs Temp 97.8 F 05/27/23 12:00 Pulse 66 05/27/23 12:00 Resp 20 05/27/23 12:00 BP 99/57 05/27/23 12:00 Pulse Ox 95 05/27/23 08:00 FiO2 Intake & Output 05/26/23 05/27/23 05/27/23 18:59 06:59 18:59 Intake Total 50 120 50 Output Total 950 750 Balance -900 -630 50 Weight 76.6 kg Intake: Intake, IV Titration 50 50 Amount ceFAZolin 2 gm In Sodium 50 50 Chloride 0.9% 50 ml @ 100 mls/hr IVPB Q8HR [facility] Rx# :[id number] Oral 120 Output: Urine 950 750 Other: Voiding Method Toilet Toilet Toilet Urinal Urinal Urinal # Voids 3 2 1 - Labs CBC & Chem 7: 05/27/23 03:37 05/27/23 03:37 Labs: Abnormal Lab Results - Last 24 Hours (Table) 05/26/23 05/26/23 05/27/23 Range/Units 16:30 20:16 03:37 WBC 11.9 H (3.8-10.6) k/uL RBC 3.76 L (4.30-5.90) m/uL Hgb 10.6 L (13.0-17.5) gm/dL Hct 31.2 L (39.0-53.0) % RDW 16.5 H (11.5-15.5) % Sodium (137-145) mmol/L Chloride (98-107) mmol/L Glucose (74-99) mg/dL POC Glucose (mg/dL) 131 H 128 H (70-110) mg/dL 05/27/23 05/27/23 05/27/23 Range/Units 03:37 07:01 11:11 WBC (3.8-10.6) k/uL RBC (4.30-5.90) m/uL Hgb (13.0-17.5) gm/dL Hct (39.0-53.0) % RDW (11.5-15.5) % Sodium 130 L (137-145) mmol/L Chloride 94 L (98-107) mmol/L Glucose 104 H (74-99) mg/dL POC Glucose (mg/dL) 114 H 141 H (70-110) mg/dL Microbiology - Last 24 Hours (Table) 05/26/23 04:12 Blood Culture - Preliminary Blood 05/25/23 07:45 Blood Culture Gram Stain - Preliminary Blood Blood Culture - Preliminary Presumptive Staph aureus 05/23/23 20:44 Blood Culture Gram Stain - Final Blood Blood Culture - Final Staphylococcus aureus 05/23/23 20:46 Blood Culture Gram Stain - Final Blood Blood Culture - Final Staphylococcus aureus
--- NOTE | 2023-05-27 14:55 | CT ---
EXAMINATION TYPE: CT chest wo con DATE OF EXAM: 05/27/2023 COMPARISON: None HISTORY: Chest pain stability of sternal CT DLP: 406.8 mGycm, Automated exposure control for dose reduction was used. CONTRAST: Performed injected with 0 mL of Isovue 300. TECHNIQUE: Axial images were obtained at 5 mm thick sections. Reconstructed images are reviewed on [employer] computer in the coronal plane. FINDINGS: Portion of the thyroid visualized is normal. There is some pleural plaquing posterior left upper lung field measuring 1.4 cm transverse. Series 20 5 image 23. Small bilateral pleural effusions are present. Some compressive atelectasis is adjacent. Vascular calcifications at the aortic arch. Some calcification may be within lymph nodes in the left infrahilar region. The ascending thoracic aorta below the mean pulmonary artery is 3.9 cm. Main pulmonary artery bifurca tion is 3.5 cm. No enlarged mediastinal or hilar adenopathy is evident. Within me proximal sternum there is some lucency suggesting underlying fracture with nonunion. Consid er osteomyelitis. Tiny amount of air may be posterior to the fracture fragments. Limited CT sections are obtained through the upper abdomen. Abdomen is essentially unremarkable. IMPRESSION: 1. Small amount of soft tissue swelling with air posterior to a lucency through the proximal sternum. Correlate for osteomyelitis or nonunion of fracture.
[2023-05-27 16:13] LABS: Glucose,Whole Blood 129 mg/dL (70-110)
[2023-05-27 20:16] LABS: Glucose,Whole Blood 109 mg/dL (70-110)
[2023-05-27] MEDS: ATORVASTATIN 80 MG TAB PO SCH (20:26)
[2023-05-27] MEDS: SODIUM CHLORIDE TAB 1 GM TAB PO SCH (20:49)
[2023-05-27] MEDS: ALPRAZolam 0.25 MG TAB PO PRN (20:49)
[2023-05-28 04:43] LABS: Anisocytosis Slight; Basophils % (A) 0 %; Eosinophils # (A) 0.3 k/uL (0-0.7); Eosinophils % (A) 2 %; HCT 30.7 % (39.0-53.0); HGB 10.1 gm/dL (13.0-17.5); Lymphocytes # (A) 0.8 k/uL (1.0-4.8); Lymphocytes % (A) 7 %; MCH 27.3 pg (25.0-35.0); MCHC 32.9 g/dL (31.0-37.0); Monocytes # (A) 0.7 k/uL (0-1.0); Monocytes % (A) 6 %; Neutrophils # (A) 9.9 k/uL (1.3-7.7); Neutrophils % (A) 84 %; Platelet Count 278 k/uL (150-450); RBC 3.69 m/uL (4.30-5.90); RDW 16.5 % (11.5-15.5); WBC 11.8 k/uL (3.8-10.6)
[2023-05-28 04:58] LABS: African American GFR (CKD) >90 (>60 ml/min/1.73 sqM); Anion Gap 7 mmol/L; Blood Urea Nitrogen 15 mg/dL (9-20); Calcium 8.5 mg/dL (8.4-10.2); Carbon Dioxide 28 mmol/L (22-30); Chloride 95 mmol/L (98-107); Glucose 101 mg/dL (74-99); Magnesium 2.1 mg/dL (1.6-2.3); Non-African American GFR(CKD) >90 (>60 ml/min/1.73 sqM); Sodium 130 mmol/L (137-145)
[2023-05-28] MEDS: INSULIN ASPART (NovoLOG) 100 UNIT/ML VIAL SQ SCH ×4 (07:12→21:34)
[2023-05-28] MEDS: GABAPENTIN 400 MG CAP PO SCH ×3 (09:11→21:32)
[2023-05-28] MEDS: HEPARIN SODIUM,PORCINE 5,000 UNIT/ML 1 ML VIAL SQ SCH ×2 (09:12→16:01)
[2023-05-28] MEDS: ASPIRIN 81 MG PO SCH (09:12)
[2023-05-28] MEDS: LIDOCAINE 4% PATCH TOPICAL SCH (09:12)
[2023-05-28] MEDS: TAMSULOSIN 0.4 MG CAP.ER.24H PO SCH (09:12)
[2023-05-28] MEDS: PARoxetine 20 MG TAB PO SCH (09:12)
[2023-05-28] MEDS: PANTOPRAZOLE 40 MG TABLET PO SCH (09:12)
[2023-05-28] MEDS: DAPAGLIFLOZIN PROPANEDIOL 5 MG TABLET PO SCH (09:13)
[2023-05-28] MEDS: METOPROLOL TARTRATE 25 MG TAB PO SCH ×2 (09:21→21:32)
[2023-05-28] MEDS: MORPHINE SULFATE ER 30 MG TABLET PO SCH ×2 (09:21→21:33)
[2023-05-28] MEDS: MUPIROCIN 2% OINT 22 GM TUBE TOPICAL SCH ×3 (09:33→21:33)
[2023-05-28] MEDS: lisinopriL 5 MG TAB PO SCH (10:42)
[2023-05-28] MEDS: SODIUM CHLORIDE TAB 1 GM TAB PO SCH ×2 (10:43→21:33)
[2023-05-28] MEDS: PRASUGREL 10 MG TAB PO SCH (10:44)
--- NOTE | 2023-05-28 11:02 | P.PN ---
Subjective Patient is seen for follow-up for hyponatremia. sodium has improved with sodium chloride tablets. Fluid restriction was changed to 1500 ML from 1200 mL and sodium this morning is 130 from 131. Patient remains on sodium chloride tabs. No significant complaints today. Patient did not sleep well last night Objective - Vital Signs Vital signs: Vital Signs Temp 100.5 F H 05/28/23 04:00 Pulse 70 05/28/23 08:00 Resp 17 05/28/23 08:00 BP 99/53 05/28/23 10:49 Pulse Ox 95 05/28/23 08:00 FiO2 Intake & Output 05/27/23 05/28/23 05/28/23 18:59 06:59 18:59 Intake Total 530 50 50 Balance 530 50 50 Weight 75.5 kg Intake: IV 50 50 ceFAZolin 2 gm In Sodium 50 50 Chloride 0.9% 50 ml @ 100 mls/hr IVPB Q8HR [facility] Rx# :[id number] Intake, IV Titration 50 Amount ceFAZolin 2 gm In Sodium 50 Chloride 0.9% 50 ml @ 100 mls/hr IVPB Q8HR [facility] Rx# :[id number] Oral 480 Other: Voiding Method Toilet Toilet Urinal Urinal # Voids 2 2 1 - Exam Patient is awake, comfortable, no acute distress Alert oriented 3 Examination of the heart S1 and S2 Examination of the lungs bilateral breath sounds are heard Abdomen is soft nontender 1+ edema 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 - Labs CBC & Chem 7: 05/28/23 03:45 05/28/23 03:45 Labs: Abnormal Lab Results - Last 24 Hours (Table) 05/27/23 05/27/23 05/28/23 Range/Units 11:11 16:12 03:45 WBC 11.8 H (3.8-10.6) k/uL RBC 3.69 L (4.30-5.90) m/uL Hgb 10.1 L (13.0-17.5) gm/dL Hct 30.7 L (39.0-53.0) % RDW 16.5 H (11.5-15.5) % Neutrophils # 9.9 H (1.3-7.7) k/uL Lymphocytes # 0.8 L (1.0-4.8) k/uL Sodium (137-145) mmol/L Chloride (98-107) mmol/L Glucose (74-99) mg/dL POC Glucose (mg/dL) 141 H 129 H (70-110) mg/dL 05/28/23 Range/Units 03:45 WBC (3.8-10.6) k/uL RBC (4.30-5.90) m/uL Hgb (13.0-17.5) gm/dL Hct (39.0-53.0) % RDW (11.5-15.5) % Neutrophils # (1.3-7.7) k/uL Lymphocytes # (1.0-4.8) k/uL Sodium 130 L (137-145) mmol/L Chloride 95 L (98-107) mmol/L Glucose 101 H (74-99) mg/dL POC Glucose (mg/dL) (70-110) mg/dL Microbiology - Last 24 Hours (Table) 05/26/23 04:12 Blood Culture - Preliminary Blood 05/25/23 07:45 Blood Culture Gram Stain - Preliminary Blood Blood Culture - Preliminary Presumptive Staph aureus Assessment and Plan Assessment: 1. 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 GFR at baseline. Urine sodium 59 and urine osmolality 640. TSH normal. Improved sodium chloride tabs and fluid restriction. 2. STEMI status post cardiac catheterization with stent to the RCA in 05/19/2023. 3. IV site infection on antibiotics. Previous history of right knee infection. Blood cultures are growing gram-positive cocci in clusters. 4. Staph aureus bacteremia maintained on cefazolin, being followed by ID Plan: Continue with sodium chloride tabs Samsca 7.5 mg by mouth today Continue fluid restriction at 1500 mL per day Repeat labs in a.m.
[2023-05-28] MEDS ORDERED: TOLVAPTAN 15 MG TABLET PO ONE (11:30)
--- NOTE | 2023-05-28 11:43 | CDI ---
Documentation Clarification Form Date: 05/28/2023 10:39:18 AM From: Coleen Sosa RN CDDS Phone: [phone] Admit Date: 05/19/2023 08:47:00 AM Patient Name: Laurent Perales Visit Number: [id number] Discharge Date: ATTENTION: The Clinical Documentation Specialists (CDI) and [facility] Coding Staff appreciate your assistance in clarifying documentation. Please respond to the clarification below the line at the bottom and electronically sign. The CDI & [facility] Coding staff will review the response and follow-up if needed. Please note: Queries are made part of the Legal Health Record. If you have any questions, please contact the author of this message via ITS. Dr. Isadora Oquendo Your patient has the documented symptom of Delirium 05/23, Procedure note. Additional clarification regarding the etiology/cause of this symptom is requested. History/Risk Factors: 67-year-old male presents to the ED for chest pain, heaviness, shortness of breath, diaphoretic, nausea and vomiting. Medical History: CAD, low back pain on opiate therapy. 05/19, H&P Clinical Indicators: 05/27, Medicine note: Delirium: Acute on chronic chest pain: From CPR. Likely due to over sedation form opiates. Decreased diluadid to 1mg IV Q6H PRN. Labs, Wbc; 05/23 19.6; 05/24 14.4; 05/25 10.3; 05/26 14.7; 05/27 11.9 IV pain medication administration: 05/26 20:11 pain intensity 10; 21:33 pain intensity 9; 05/27 01:43 pain intensity 9; 05/27 03:30 pain intensity 9 Treatment: 05/26 Decreased Dilaudid to 1mg IV Q6H PRN from Q3H PRN Please clarify the etiology of the symptom of Altered Mental Status: [ ] Metabolic Encephalopathy due to oversedation from opiates. [ ] Other condition (please specify) [ ] Unable to determine (Template Last Revised: July 2020) No delirium MTDD
[2023-05-28 12:22] LABS: Glucose,Whole Blood 113 mg/dL (70-110)
[2023-05-28] MEDS: ALPRAZolam 0.25 MG TAB PO PRN (13:23)
[2023-05-28] MEDS: MAGNESIUM HYDROXIDE 2,400 MG/30 ML CUP PO PRN (13:30)
--- NOTE | 2023-05-28 15:58 | P.PN ---
Subjective Progress Note Date: 05/28/23 Patient is a 67-year-old male with chronic back pain on opiate therapy, depression, and osteoarthritis who presented to the emergency department with complaints of chest pain. Patient was brought in via EMS and while [facility] had a brief ventricular fibrillation arrest requiring CPR and defibrillation. On arrival patient was noted have an ST segment elevated myocardial infarction. EKG revealed ST segment elevation in the inferior leads. Initial laboratory analysis on arrival was remarkable for glucose of 256. Initial chest x-ray showed no acute cardiopulmonary process. Patient underwent an emergent heart cath which showed a total occlusion of the RCA with large thro mbus burden which was successfully stented with good angiographic results. He was subsequently placed on aspirin, statin, and Effient. Patient was admitted to the ICU. Echocardiogram demonstrated an ejection fraction of 40-45% with inferior hypokinesis. Patient was being evaluated for possible discharge when he spiked a fever of 102.1. At that time chest x-ray showed no acute process, urinalysis negative, EKG without signs of pericarditis. COVID/Flu/RSV negative. He was found out have left AC superficial thrombophelbitis with surrounding cellulitis. He was started on IV vancomycin. Blood cultures came back positive for staph aureus. X-ray of the right knee showed medial femoral condyle fracture with joint effusion, septic arthritis felt unlikely by ortho. Patient seen and examined at bedside. He is tired today, pain is slight better, he just wants to sleep. present at bedside and all questions answered. Vital signs reviewed General: nontoxic, no distress, appears at stated age Cardiovascular: S1S2 reg, no murmur, positive posterior tibial pulse bilateral, Lungs: CTA bilateral, no rhonchi, no rales , no accessory muscle use Abdominal: soft, nontender to palpation, no guarding, no appreciable organomegaly Ext: no gross muscle atrophy, no edema b/l lower extremities, no contractures, left arm with erythema without warmth and small opening without drainage Neuro: CN II-XI grossly intact, no focal neuro deficits Psych: Alert, oriented, appropriate affect Assessment/Plan: Staph aureus bacteremia with sepsis Right knee effusion Left AC superficial thrombophelbitis -Cefazolin and 2 g IV piggyback every 8 hours D # 4 - septic arthritis ruled out by ortho, recommend outpatient follow-up with primary [place] - Blood cultures from 05/26 negative for [address] segment elevated myocardial infarction status post PCI to the RCA S/P V. fib arrest. Cardiomyopathy with ejection fraction 40-45% Acute on chronic pain Newly discovered prediabetes with A1c 6 Sternal fracture due to CPR - Aspirin 81 mg daily, Effient 10 mg Lipitor 40 mg daily -Continue with Neurontin 800 mg 3 times daily, Dilaudid 1 mg every 6 hours as needed for pain, lidocaine patch for percent, MS Contin 30 mg every 12 hours, and OxyIR 15 mg by mouth every 6 hours as needed for breakthrough pain - Cardio signed off: out patient follow-up with Dr. Duke. 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 Continue with sodium chloride 1 g by mouth twice daily. -follow salt levels GERD - protonix 40 mg daily Hypomagnesemia, resolved Imaging: CT of the chest demonstrated a small amount of soft tissue swelling with air posterior to lucency of the proximal sternum possible osteomyelitis or nonunion of fracture. Data Review: Labs reviewed from today include CBC and basic metabolic profile which are remarkable for white blood cell count 11.8, hemoglobin 10.1, sodium 130. DVT prophylaxis: Heparin Anticipated discharge date: 24- [address]: home This dictation was prepared using [employer] voice recognition software. Though every attempt is made to correct errors during dictation some may still exist. Objective - Vital Signs Vital signs: Vital Signs Temp 100.5 F H 05/28/23 04:00 Pulse 79 05/28/23 04:00 Resp 14 05/28/23 04:00 BP 93/43 05/28/23 04:00 Pulse Ox 97 05/28/23 04:00 FiO2 Intake & Output 05/27/23 05/28/23 05/28/23 18:59 06:59 18:59 Intake Total 530 50 Balance 530 50 Weight 75.5 kg Intake: IV 50 ceFAZolin 2 gm In Sodium 50 Chloride 0.9% 50 ml @ 100 mls/hr IVPB Q8HR [facility] Rx# :[id number] Intake, IV Titration 50 Amount ceFAZolin 2 gm In Sodium 50 Chloride 0.9% 50 ml @ 100 mls/hr IVPB Q8HR [facility] Rx# :[id number] Oral 480 Other: Voiding Method Toilet Toilet Urinal Urinal # Voids 2 2 - Labs CBC & Chem 7: 05/28/23 03:45 05/28/23 03:45 Labs: Abnormal Lab Results - Last 24 Hours (Table) 05/27/23 05/27/23 05/28/23 Range/Units 11:11 16:12 03:45 WBC 11.8 H (3.8-10.6) k/uL RBC 3.69 L (4.30-5.90) m/uL Hgb 10.1 L (13.0-17.5) gm/dL Hct 30.7 L (39.0-53.0) % RDW 16.5 H (11.5-15.5) % Neutrophils # 9.9 H (1.3-7.7) k/uL Lymphocytes # 0.8 L (1.0-4.8) k/uL Sodium (137-145) mmol/L Chloride (98-107) mmol/L Glucose (74-99) mg/dL POC Glucose (mg/dL) 141 H 129 H (70-110) mg/dL 05/28/23 Range/Units 03:45 WBC (3.8-10.6) k/uL RBC (4.30-5.90) m/uL Hgb (13.0-17.5) gm/dL Hct (39.0-53.0) % RDW (11.5-15.5) % Neutrophils # (1.3-7.7) k/uL Lymphocytes # (1.0-4.8) k/uL Sodium 130 L (137-145) mmol/L Chloride 95 L (98-107) mmol/L Glucose 101 H (74-99) mg/dL POC Glucose (mg/dL) (70-110) mg/dL Microbiology - Last 24 Hours (Table) 05/26/23 04:12 Blood Culture - Preliminary Blood 05/25/23 07:45 Blood Culture Gram Stain - Preliminary Blood Blood Culture - Preliminary Presumptive Staph aureus
[2023-05-28 16:31] LABS: Glucose,Whole Blood 133 mg/dL (70-110)
[2023-05-28 20:22] LABS: Glucose,Whole Blood 143 mg/dL (70-110)
[2023-05-28] MEDS: ATORVASTATIN 80 MG TAB PO SCH (21:32)
[2023-05-29] MEDS: HEPARIN SODIUM,PORCINE 5,000 UNIT/ML 1 ML VIAL SQ SCH ×3 (00:27→16:48)
[2023-05-29] MEDS: HYDROmorphone 1 MG/ML 1 ML SYRINGE IVP PRN ×2 (00:28→14:17)
[2023-05-29] MEDS: MAGNESIUM HYDROXIDE 2,400 MG/30 ML CUP PO PRN (04:42)
[2023-05-29 04:55] LABS: ALT 43 U/L (4-49); AST 74 U/L (17-59); African American GFR (CKD) >90 (>60 ml/min/1.73 sqM); Albumin 2.7 g/dL (3.5-5.0); Alkaline Phosphatase 136 U/L (38-126); Anion Gap 8 mmol/L; Blood Urea Nitrogen 13 mg/dL (9-20); Calcium 8.4 mg/dL (8.4-10.2); Carbon Dioxide 29 mmol/L (22-30); Chloride 102 mmol/L (98-107); Glucose 105 mg/dL (74-99); Magnesium 2.5 mg/dL (1.6-2.3); Non-African American GFR(CKD) >90 (>60 ml/min/1.73 sqM); Phosphorus 4.6 mg/dL (2.5-4.5); Sodium 139 mmol/L (137-145); Total Bilirubin 0.4 mg/dL (0.2-1.3); Total Protein 5.2 g/dL (6.3-8.2)
[2023-05-29 04:58] LABS: Anisocytosis Slight; HCT 29.8 % (39.0-53.0); HGB 9.9 gm/dL (13.0-17.5); MCH 27.5 pg (25.0-35.0); MCHC 33.3 g/dL (31.0-37.0); MCV 82.7 fL (80.0-100.0); Mean Platelet Volume 7.6; Platelet Count 329 k/uL (150-450); RBC 3.61 m/uL (4.30-5.90); RDW 16.5 % (11.5-15.5); WBC 9.4 k/uL (3.8-10.6)
[2023-05-29 06:23] LABS: Glucose,Whole Blood 116 mg/dL (70-110)
[2023-05-29] MEDS: PANTOPRAZOLE 40 MG TABLET PO SCH (06:33)
[2023-05-29] MEDS: INSULIN ASPART (NovoLOG) 100 UNIT/ML VIAL SQ SCH ×4 (06:34→20:41)
[2023-05-29] MEDS: MORPHINE SULFATE ER 30 MG TABLET PO SCH ×2 (08:36→21:10)
[2023-05-29] MEDS: PRASUGREL 10 MG TAB PO SCH (08:45)
[2023-05-29] MEDS: LIDOCAINE 4% PATCH TOPICAL SCH (08:45)
[2023-05-29] MEDS: DAPAGLIFLOZIN PROPANEDIOL 5 MG TABLET PO SCH (08:46)
[2023-05-29] MEDS: GABAPENTIN 400 MG CAP PO SCH ×3 (08:46→21:11)
[2023-05-29] MEDS: PARoxetine 20 MG TAB PO SCH (08:46)
[2023-05-29] MEDS: METOPROLOL TARTRATE 25 MG TAB PO SCH ×2 (08:46→21:10)
[2023-05-29] MEDS: ASPIRIN 81 MG PO SCH (08:46)
[2023-05-29] MEDS: TAMSULOSIN 0.4 MG CAP.ER.24H PO SCH (08:46)
[2023-05-29] MEDS: SODIUM CHLORIDE TAB 1 GM TAB PO SCH ×2 (08:46→21:47)
[2023-05-29] MEDS: lisinopriL 5 MG TAB PO SCH (08:47)
[2023-05-29] MEDS: MUPIROCIN 2% OINT 22 GM TUBE TOPICAL SCH ×3 (08:53→21:16)
--- NOTE | 2023-05-29 09:11 | P.PN ---
Subjective Progress Note Date: 05/27/23 Principal diagnosis: Reason for follow-up is MSSA bacteremia Patient is a 67-year-old male with a past medical history significant for depression anxiety did have a right knee replacement patient was brought into the hospital with [id number] cardiac arrest did have [place] requiring PTCA and stenting of the RCA patient did develop fever and MSSA bacteremia likely related to the left antecubital fossa IV site infection On today's evaluation that is 05/27/2023 the patient remains to be afebrile, the patient is breathing comfortably on room air without any supplemental oxygen, the patient has been complaining of central chest pain along with some instability of his sternum, the patient denies cough denies any of or sputum production, patient denies any abdominal pain no nausea vomiting or any diarrhea Patient white count 11.9, creatinine 0.8 blood culture repeat currently pending Objective - Vital Signs Vital signs: Vital Signs Temp 97.8 F 05/27/23 12:00 Pulse 66 05/27/23 12:00 Resp 20 05/27/23 12:00 BP 99/57 05/27/23 12:00 Pulse Ox 95 05/27/23 08:00 FiO2 Intake & Output 05/26/23 05/27/23 05/27/23 18:59 06:59 18:59 Intake Total 50 120 50 Output Total 950 750 Balance -900 -630 50 Weight 76.6 kg Intake: Intake, IV Titration 50 50 Amount ceFAZolin 2 gm In Sodium 50 50 Chloride 0.9% 50 ml @ 100 mls/hr IVPB Q8HR [facility] Rx# :[id number] Oral 120 Output: Urine 950 750 Other: Voiding Method Toilet Toilet Toilet Urinal Urinal Urinal # Voids 3 2 1 - Exam GENERAL DESCRIPTION: An elderly male lying in bed in no distress RESPIRATORY SYSTEM: Unlabored breathing , clear to auscultation anteriorly HEART: S1 S2 regular rate and rhythm , ABDOMEN: Soft , no tenderness EXTREMITIES: No edema feet - Labs CBC & Chem 7: 05/29/23 04:21 05/29/23 04:21 Labs: Abnormal Lab Results - Last 24 Hours (Table) 05/26/23 05/26/23 05/27/23 Range/Units 16:30 20:16 03:37 WBC 11.9 H (3.8-10.6) k/uL RBC 3.76 L (4.30-5.90) m/uL Hgb 10.6 L (13.0-17.5) gm/dL Hct 31.2 L (39.0-53.0) % RDW 16.5 H (11.5-15.5) % Sodium (137-145) mmol/L Chloride (98-107) mmol/L Glucose (74-99) mg/dL POC Glucose (mg/dL) 131 H 128 H (70-110) mg/dL 05/27/23 05/27/23 05/27/23 Range/Units 03:37 07:01 11:11 WBC (3.8-10.6) k/uL RBC (4.30-5.90) m/uL Hgb (13.0-17.5) gm/dL Hct (39.0-53.0) % RDW (11.5-15.5) % Sodium 130 L (137-145) mmol/L Chloride 94 L (98-107) mmol/L Glucose 104 H (74-99) mg/dL POC Glucose (mg/dL) 114 H 141 H (70-110) mg/dL Microbiology - Last 24 Hours (Table) 05/26/23 04:12 Blood Culture - Preliminary Blood 05/25/23 07:45 Blood Culture Gram Stain - Preliminary Blood Blood Culture - Preliminary Presumptive Staph aureus 05/23/23 20:44 Blood Culture Gram Stain - Final Blood Blood Culture - Final Staphylococcus aureus 05/23/23 20:46 Blood Culture Gram Stain - Final Blood Blood Culture - Final Staphylococcus aureus Assessment and Plan (1) MSSA bacteremia Current Visit: Yes Status: Acute Code(s): R78.81 - BACTEREMIA; B95.61 - METHICILLIN SUSCEP STAPH INFCT CAUSING DIS CLASSD ELSWHR SNOMED Code(s): 475766844 Plan: 1patient with an episode of sepsis in this patient who did have a fever elevated white count with evidence of MSSA bacteremia source likely left arm/antecubital fossa IV site infection that has been discontinued patient did have a prosthetic right knee, with some swelling minimal warmth was noticed but no significant redness clinically doubt source of this bacteremia however risk of seeding from this bacteremia 2-blood cultures has been repeated to document clearance of his bacteremia , patient did have a CRP of 25.5 and a sed rate of 48 3Patient to continue with cefazolin 2 g every 8 hours, will obtain CT chest to r/o sternal fracture , discussed with the admitting team and Dictation was produced using [employer] dictation software. please excuse any grammatical, word or spelling errors. Time with Patient: Less than 30
--- NOTE | 2023-05-29 09:15 | P.PN ---
Subjective Progress Note Date: 05/28/23 Principal diagnosis: Reason for follow-up is MSSA bacteremia Patient is a 67-year-old male with a past medical history significant for depression anxiety did have a right knee replacement patient was brought into the hospital with [id number] cardiac arrest did have [place] requiring PTCA and stenting of the RCA patient did develop fever and MSSA bacteremia likely related to the left antecubital fossa IV site infection On today's evaluation that is 05/28/2023, the patient did have a low-grade fever 100.5 around 4 this morning the patient is afebrile since then patient is to complaining of central chest discomfort and some swelling denies any significant cough or sputum production no nausea no vomiting no abdominal pain and no diarrhea. Patient white count is 11.8, creatinine 0.73, blood cultures from 2 also positive, blood culture from 3 is currently pending patient did have a CT of the chest small amount of soft tissue swelling with air posterior to lucency through the proximal central correlate for osteomyelitis or nonunion of the fracture Objective - Vital Signs Vital signs: Vital Signs Temp 99.4 F 05/28/23 12:00 Pulse 70 05/28/23 08:00 Resp 18 05/28/23 12:00 BP 120/70 05/28/23 12:00 Pulse Ox 95 05/28/23 12:00 FiO2 Intake & Output 05/27/23 05/28/23 05/28/23 18:59 06:59 18:59 Intake Total 530 50 250 Output Total 175 Balance 530 50 75 Weight 75.5 kg Intake: IV 50 50 ceFAZolin 2 gm In Sodium 50 50 Chloride 0.9% 50 ml @ 100 mls/hr IVPB Q8HR [facility] Rx# :[id number] Intake, IV Titration 50 Amount ceFAZolin 2 gm In Sodium 50 Chloride 0.9% 50 ml @ 100 mls/hr IVPB Q8HR [facility] Rx# :[id number] Oral 480 200 Output: Urine 175 Other: Voiding Method Toilet Toilet Toilet Urinal Urinal Urinal # Voids 2 2 1 - Exam GENERAL DESCRIPTION: An elderly male lying in bed in no distress RESPIRATORY SYSTEM: Unlabored breathing , clear to auscultation anteriorly HEART: S1 S2 regular rate and rhythm , ABDOMEN: Soft , no tenderness EXTREMITIES: No edema feet - Labs CBC & Chem 7: 05/29/23 04:21 05/29/23 04:21 Labs: Abnormal Lab Results - Last 24 Hours (Table) 05/27/23 05/28/23 05/28/23 Range/Units 16:12 03:45 03:45 WBC 11.8 H (3.8-10.6) k/uL RBC 3.69 L (4.30-5.90) m/uL Hgb 10.1 L (13.0-17.5) gm/dL Hct 30.7 L (39.0-53.0) % RDW 16.5 H (11.5-15.5) % Neutrophils # 9.9 H (1.3-7.7) k/uL Lymphocytes # 0.8 L (1.0-4.8) k/uL Sodium 130 L (137-145) mmol/L Chloride 95 L (98-107) mmol/L Glucose 101 H (74-99) mg/dL POC Glucose (mg/dL) 129 H (70-110) mg/dL 05/28/23 Range/Units 12:21 WBC (3.8-10.6) k/uL RBC (4.30-5.90) m/uL Hgb (13.0-17.5) gm/dL Hct (39.0-53.0) % RDW (11.5-15.5) % Neutrophils # (1.3-7.7) k/uL Lymphocytes # (1.0-4.8) k/uL Sodium (137-145) mmol/L Chloride (98-107) mmol/L Glucose (74-99) mg/dL POC Glucose (mg/dL) 113 H (70-110) mg/dL Microbiology - Last 24 Hours (Table) 05/26/23 04:12 Blood Culture - Preliminary Blood 05/25/23 07:45 Blood Culture Gram Stain - Preliminary Blood Blood Culture - Preliminary Presumptive Staph aureus Assessment and Plan (1) MSSA bacteremia Current Visit: Yes Status: Acute Code(s): R78.81 - BACTEREMIA; B95.61 - METHICILLIN SUSCEP STAPH INFCT CAUSING DIS CLASSD ELSWHR SNOMED Code(s): 397113890 Plan: 1patient with an episode of sepsis in this patient who did have a fever elevated white count with evidence of MSSA bacteremia source likely left arm/antecubital fossa IV site infection that has been discontinued patient did have a prosthetic right knee, with some swelling minimal warmth was noticed but no significant redness clinically doubt source of this bacteremia however risk of seeding from this bacteremia 2blood cultures repeat 05-25-2023 are positive and the patient also have a low- grade fever which is slightly concerning blood cultures 05/26/2023 has been negative so far we will obtain a blood cultures today as well as tomorrow morning. 3patient also have CT of the chest with possibility of fracture and soft tissue related to recent chest compression clinical suspicious low for osteomyelitis bu t not entirely excluded. 4we will continue patient cefazolin 2 g every 8 hours once blood cultures negative at 72 hours and the patient remains to be afebrile we will place a PICC line for outpatient IV antibiotic therapy at the bedside multiple question concern answered Dictation was produced using [employer] dictation software. please excuse any grammatical, word or spelling errors. Time with Patient: Greater than 30
[2023-05-29 11:27] LABS: Glucose,Whole Blood 140 mg/dL (70-110)
--- NOTE | 2023-05-29 12:16 | P.PN ---
Subjective Progress Note Date: 05/29/23 Principal diagnosis: Reason for follow-up is MSSA bacteremia Patient is a 67-year-old male with a past medical history significant for depression anxiety did have a right knee replacement patient was brought into the hospital with [id number] cardiac arrest did have [place] requiring PTCA and stenting of the RCA patient did develop fever and MSSA bacteremia likely related to the left antecubital fossa IV site infection On today's evaluation that is 05/28/2023 the patient remains to be afebrile, the patient is breathing comfortably on room air and no need for supplemental oxygen, the patient still complaining of central chest pain however has decreased in intensity, denies cough and no sputum production, patient denies nausea vomiting or any diarrhea, and no abdominal pain Patient white count normalized to 9.4, creatinine is 0.64, blood cultures from 05/25/2023 positive, however blood culture from 05/26/2023 so far negative patient did have a CT of the chest small amount of soft tissue swelling with air posterior to lucency through the proximal central correlate for osteomyelitis or nonunion of the fracture Objective - Vital Signs Vital signs: Vital Signs Temp 98.1 F 05/29/23 08:00 Pulse 77 05/29/23 08:00 Resp 16 05/29/23 08:00 BP 116/62 05/29/23 08:00 Pulse Ox 96 05/29/23 08:00 FiO2 Intake & Output 05/28/23 05/29/23 05/29/23 18:59 06:59 18:59 Intake Total 800 1150 850 Output Total 175 2660 Balance 625 -1510 850 Weight 74.2 kg Intake: IV 100 50 50 ceFAZolin 2 gm In Sodium 100 50 50 Chloride 0.9% 50 ml @ 100 mls/hr IVPB Q8HR [facility] Rx# :[id number] Oral 700 1100 800 Output: Urine 175 2660 Other: Voiding Method Toilet Toilet Toilet Urinal Urinal Urinal # Voids 1 1 # Bowel Movements 1 - Exam GENERAL DESCRIPTION: An elderly male lying in bed in no distress RESPIRATORY SYSTEM: Unlabored breathing , clear to auscultation anteriorly HEART: S1 S2 regular rate and rhythm , ABDOMEN: Soft , no tenderness EXTREMITIES: No edema feet - Labs CBC & Chem 7: 05/29/23 04:21 05/29/23 04:21 Labs: Abnormal Lab Results - Last 24 Hours (Table) 05/28/23 05/28/23 05/28/23 Range/Units 12:21 16:29 20:21 RBC (4.30-5.90) m/uL Hgb (13.0-17.5) gm/dL Hct (39.0-53.0) % RDW (11.5-15.5) % Creatinine (0.66-1.25) mg/dL Glucose (74-99) mg/dL POC Glucose (mg/dL) 113 H 133 H 143 H (70-110) mg/dL Phosphorus (2.5-4.5) mg/dL Magnesium (1.6-2.3) mg/dL AST (17-59) U/L Alkaline Phosphatase (38-126) U/L Total Protein (6.3-8.2) g/dL Albumin (3.5-5.0) g/dL 05/29/23 05/29/23 05/29/23 Range/Units 04:21 04:21 06:21 RBC 3.61 L (4.30-5.90) m/uL Hgb 9.9 L (13.0-17.5) gm/dL Hct 29.8 L (39.0-53.0) % RDW 16.5 H (11.5-15.5) % Creatinine 0.64 L (0.66-1.25) mg/dL Glucose 105 H (74-99) mg/dL POC Glucose (mg/dL) 116 H (70-110) mg/dL Phosphorus 4.6 H (2.5-4.5) mg/dL Magnesium 2.5 H (1.6-2.3) mg/dL AST 74 H (17-59) U/L Alkaline Phosphatase 136 H (38-126) U/L Total Protein 5.2 L (6.3-8.2) g/dL Albumin 2.7 L (3.5-5.0) g/dL 05/29/23 Range/Units 11:25 RBC (4.30-5.90) m/uL Hgb (13.0-17.5) gm/dL Hct (39.0-53.0) % RDW (11.5-15.5) % Creatinine (0.66-1.25) mg/dL Glucose (74-99) mg/dL POC Glucose (mg/dL) 140 H (70-110) mg/dL Phosphorus (2.5-4.5) mg/dL Magnesium (1.6-2.3) mg/dL AST (17-59) U/L Alkaline Phosphatase (38-126) U/L Total Protein (6.3-8.2) g/dL Albumin (3.5-5.0) g/dL Microbiology - Last 24 Hours (Table) 05/25/23 07:45 Blood Culture Gram Stain - Final Blood Blood Culture - Final Staphylococcus aureus 05/26/23 04:12 Blood Culture - Preliminary Blood Assessment and Plan (1) MSSA bacteremia Current Visit: Yes Status: Acute Code(s): R78.81 - BACTEREMIA; B95.61 - METHICILLIN SUSCEP STAPH INFCT CAUSING DIS CLASSD ELSWHR SNOMED Code(s): 338296992 Plan: 1patient with an episode of sepsis in this patient who did have a fever elevated white count with evidence of MSSA bacteremia source likely left arm/antecubital fossa IV site infection that has been discontinued patient did have a prosthetic right knee, with some swelling minimal warmth was noticed but no significant redness clinically doubt source of this bacteremia however risk of seeding from this bacteremia 2blood cultures repeat 05-25-2023 are positive however blood cultures 05/26/2023 has been negative so far patient be able to get a midline this afternoon as per discussion with the admitting team however we'll observe him for another 24 hours in the hospital before planning for discharge 3patient also have CT of the chest with possibility of fracture and soft tissue related to recent chest compression clinical suspicious low for osteomyelitis but not entirely excluded. 4we will continue patient cefazolin 2 g every 8 hours, plan is for a two-week course on discharge Dictation was produced using [employer] dictation software. please excuse any grammatical, word or spelling errors. Time with Patient: Less than 30
--- NOTE | 2023-05-29 12:36 | P.PN ---
Subjective Progress Note Date: 05/29/23 Patient is a 67-year-old male with chronic back pain on opiate therapy, depression, and osteoarthritis who presented to the emergency department with complaints of chest pain. Patient was brought in via EMS and while [facility] had a brief ventricular fibrillation arrest requiring CPR and defibrillation. On arrival patient was noted have an ST segment elevated myocardial infarction. EKG revealed ST segment elevation in the inferior leads. Initial laboratory analysis on arrival was remarkable for glucose of 256. Initial chest x-ray showed no acute cardiopulmonary process. Patient underwent an emergent heart cath which showed a total occlusion of the RCA with large thro mbus burden which was successfully stented with good angiographic results. He was subsequently placed on aspirin, statin, and Effient. Patient was admitted to the ICU. Echocardiogram demonstrated an ejection fraction of 40-45% with inferior hypokinesis. Patient was being evaluated for possible discharge when he spiked a fever of 102.1. At that time chest x-ray showed no acute process, urinalysis negative, EKG without signs of pericarditis. COVID/Flu/RSV negative. He was found out have left AC superficial thrombophelbitis with surrounding cellulitis. He was started on IV vancomycin. Blood cultures came back positive for staph aureus. X-ray of the right knee showed medial femoral condyle fracture with joint effusion, septic arthritis felt unlikely by ortho. To further evaluate possible source he underwent CT of the chest which demonstrated a small amount of soft tissue swelling with air posterior to lucency of the proximal sternum possible osteomyelitis or nonunion of fracture, this was felt to be consistent with recent sternal fracture from CPR. Patient seen and examined at bedside with present. He is doing okay. Pain is tolerable. No shortness of breath. We again discussed that it will take time for the wound on his left arm to heal. Vital signs reviewed General: nontoxic, no distress, appears at stated age Cardiovascular: S1S2 reg, no murmur, positive posterior tibial pulse bilateral, Lungs: CTA bilateral, no rhonchi, no rales , no accessory muscle use Abdominal: soft, nontender to palpation, no guarding, no appreciable organomegaly Ext: no gross muscle atrophy, no edema b/l lower extremities, no contractures, left arm with erythema without warmth and small opening without drainage Neuro: CN II-XI grossly intact, no focal neuro deficits Psych: Alert, oriented, appropriate affect Assessment/Plan: Staph aureus bacteremia with sepsis Right knee effusion Left AC superficial thrombophelbitis -Cefazolin and 2 g IV piggyback every 8 hours D # 5 - case discussed with Dr. rojas and blood cultures still negative from 05/26 @ 1055 am on 05/29, midline ordered. WIll observe until tomorrow to ensure no recurrence of fever and then can be discharged on 2 weeks of cefalozin. Case discussed with Social work and ordered received for outpatient abx. - septic arthritis ruled out by ortho, recommend outpatient follow-up with primary surgeon - Blood cultures from 05/26 negative for [address] segment elevated myocardial infarction status post PCI to the RCA S/P V. fib arrest. Cardiomyopathy with ejection fraction 40-45% Acute on chronic pain Newly discovered prediabetes with A1c 6 Sternal fracture due to CPR - Aspirin 81 mg daily, Effient 10 mg Lipitor 40 mg daily -Continue with Neurontin 800 mg 3 times daily, Dilaudid 1 mg every 6 hours as needed for pain, lidocaine patch for percent, MS Contin 30 mg every 12 hours, and OxyIR 15 mg by mouth every 6 hours as needed for breakthrough pain - Cardio signed off: out patient follow-up with Dr. Duke. 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 Patient asking for more to drink and for today I allowed 2L - nephrology note reviewed from 05/28: Samsca 7.5 mg 1, continue fluid restriction -follow sodium levels GERD - protonix 40 mg daily Hypomagnesemia, resolved Imaging: none new Data Review: Labs reviewed from today include CBC and CMP are remarkable for white blood cell count 9.4, hemoglobin 9.9, phosphorus 4.6, magnesium 2.5 DVT prophylaxis: Heparin Anticipated discharge date: [address]: home This dictation was prepared using [employer] voice recognition software. Though every attempt is made to correct errors during dictation some may still e xist. Objective - Vital Signs Vital signs: Vital Signs Temp 98.1 F 05/29/23 04:00 Pulse 64 05/29/23 04:00 Resp 14 05/29/23 04:00 BP 99/58 05/29/23 04:00 Pulse Ox 97 05/29/23 04:00 FiO2 Intake & Output 05/28/23 05/29/23 05/29/23 18:59 06:59 18:59 Intake Total 800 1150 Output Total 175 2660 Balance 625 -1510 Weight 74.2 kg Intake: IV 100 50 ceFAZolin 2 gm In Sodium 100 50 Chloride 0.9% 50 ml @ 100 mls/hr IVPB Q8HR JENNIFER Rx# :[id number] Oral 700 1100 Output: Urine 175 2660 Other: Voiding Method Toilet Toilet Urinal Urinal # Voids 1 - Labs CBC & Chem 7: 05/29/23 04:21 05/29/23 04:21 Labs: Abnormal Lab Results - Last 24 Hours (Table) 05/28/23 05/28/23 05/28/23 Range/Units 12: 16:29 20:21 RBC (4.30-5.90) m/uL Hgb (13.0-17.5) gm/dL Hct (39.0-53.0) % RDW (11.5-15.5) % Creatinine (0.66-1.25) mg/dL Glucose (74-99) mg/dL POC Glucose (mg/dL) 113 H 133 H 143 H (70-110) mg/dL Phosphorus (2.5-4.5) mg/dL Magnesium (1.6-2.3) mg/dL AST (17-59) U/L Alkaline Phosphatase (38-126) U/L Total Protein (6.3-8.2) g/dL Albumin (3.5-5.0) g/dL 05/29/23 05/29/23 05/29/23 Range/Units 04:21 04:21 06:21 RBC 3.61 L (4.30-5.90) m/uL Hgb 9.9 L (13.0-17.5) gm/dL Hct 29.8 L (39.0-53.0) % RDW 16.5 H (11.5-15.5) % Creatinine 0.64 L (0.66-1.25) mg/dL Glucose 105 H (74-99) mg/dL POC Glucose (mg/dL) 116 H (70-110) mg/dL Phosphorus 4.6 H (2.5-4.5) mg/dL Magnesium 2.5 H (1.6-2.3) mg/dL AST 74 H (17-59) U/L Alkaline Phosphatase 136 H (38-126) U/L Total Protein 5.2 L (6.3-8.2) g/dL Albumin 2.7 L (3.5-5.0) g/dL Microbiology - Last 24 Hours (Table) 05/25/23 07:45 Blood Culture Gram Stain - Final Blood Blood Culture - Final Staphylococcus aureus 05/26/23 04:12 Blood Culture - Preliminary Blood
[2023-05-29] MEDS: ALPRAZolam 0.25 MG TAB PO PRN (14:18)
[2023-05-29] MEDS: ACETAMINOPHEN TAB 325 MG TAB PO PRN (14:18)
[2023-05-29 16:40] LABS: Glucose,Whole Blood 153 mg/dL (70-110)
[2023-05-29 20:12] LABS: Glucose,Whole Blood 115 mg/dL (70-110)
[2023-05-29] MEDS: ATORVASTATIN 80 MG TAB PO SCH (21:11)
[2023-05-29] MEDS: CALCIUM CARBONATE 500 MG CHEWABLE PO PRN (21:50)
[2023-05-30] MEDS: HEPARIN SODIUM,PORCINE 5,000 UNIT/ML 1 ML VIAL SQ SCH ×2 (00:01→07:48)
[2023-05-30 06:34] LABS: Glucose,Whole Blood 116 mg/dL (70-110)
[2023-05-30] MEDS: INSULIN ASPART (NovoLOG) 100 UNIT/ML VIAL SQ SCH ×2 (06:37→12:21)
[2023-05-30] MEDS: PANTOPRAZOLE 40 MG TABLET PO SCH (06:41)
[2023-05-30 08:12] VITALS: RESP 12
[2023-05-30 08:54] LABS: African American GFR (CKD) >90 (>60 ml/min/1.73 sqM); Anion Gap 8 mmol/L; Blood Urea Nitrogen 13 mg/dL (9-20); Calcium 8.8 mg/dL (8.4-10.2); Carbon Dioxide 31 mmol/L (22-30); Chloride 98 mmol/L (98-107); Glucose 117 mg/dL (74-99); Non-African American GFR(CKD) >90 (>60 ml/min/1.73 sqM); Potassium 4.4 mmol/L (3.5-5.1); Sodium 137 mmol/L (137-145)
[2023-05-30] MEDS: ALPRAZolam 0.25 MG TAB PO PRN (09:11)
[2023-05-30] MEDS: HYDROmorphone 1 MG/ML 1 ML SYRINGE IVP PRN (09:11)
[2023-05-30] MEDS: MORPHINE SULFATE ER 30 MG TABLET PO SCH (09:14)
[2023-05-30] MEDS: METOPROLOL TARTRATE 25 MG TAB PO SCH (09:15)
[2023-05-30] MEDS: SODIUM CHLORIDE TAB 1 GM TAB PO SCH (09:15)
[2023-05-30] MEDS: LIDOCAINE 4% PATCH TOPICAL SCH (09:15)
[2023-05-30] MEDS: GABAPENTIN 400 MG CAP PO SCH (09:15)
[2023-05-30] MEDS: TAMSULOSIN 0.4 MG CAP.ER.24H PO SCH (09:15)
[2023-05-30] MEDS: ASPIRIN 81 MG PO SCH (09:15)
[2023-05-30] MEDS: PRASUGREL 10 MG TAB PO SCH (09:15)
[2023-05-30] MEDS: PARoxetine 20 MG TAB PO SCH (09:16)
[2023-05-30] MEDS: MUPIROCIN 2% OINT 22 GM TUBE TOPICAL SCH ×2 (09:36→09:54)
[2023-05-30] MEDS: lisinopriL 5 MG TAB PO SCH (09:37)
[2023-05-30] MEDS: DAPAGLIFLOZIN PROPANEDIOL 5 MG TABLET PO SCH (09:57)
--- NOTE | 2023-05-30 11:04 | P.DS ---
Providers Date of admission: 05/19/23 08:47 Expected date of discharge: 05/30/23 Attending physician: Isadora Oquendo DO Consults: 05/24/23 08:15 Consult Physician Routine Consulting Provider: Loyd Patiño Consult Reason/Comments: SAIDH Do you want consulting provider notified?: Yes 05/24/23 19:01 Consult Physician Routine Consulting Provider: Reynaldo Li Consult Reason/Comments: possible septic arthritis right knee Do you want consulting provider notified?: Yes Consult Physician Routine Consulting Provider: Jada Germain Consult Reason/Comments: bacteremia Do you want consulting provider notified?: Yes Primary care physician: [facility] Course: Staph aureus bacteremia with sepsis Right knee effusion Left AC superficial thrombophelbitis Inferior ST segment elevated myocardial infarction status post PCI to the RCA S/P V. fib arrest. 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 Patient was brought in via EMS and while [facility] had a brief ventricular fibrillation arrest requiring CPR and defibrillation. On arrival patient was noted have an ST segment elevated myocardial infarction. EKG revealed ST segment elevation in the inferior leads. Initial laboratory analysis on arrival was remarkable for glucose of 256. Initial chest x-ray showed no acute cardiopulmonary process. Patient underwent an emergent heart cath which showed a total occlusion of the RCA with large thrombus burden which was successfully stented with good angiographic results. He was subsequently placed on aspirin, statin, and Effient. Patient was admitted to the ICU. Echocardiogram demonstrated an ejection fraction of 40-45% with inferior hypokinesis. Patient was being evaluated for possible discharge when he spiked a fever of 102.1. At that time chest x-ray showed no acute process, urinalysis negative, EKG without signs of pericarditis. COVID/Flu/RSV negative. He was found out have left AC superficial thrombophelbitis with surrounding cellulitis. He was started on IV vancomycin. Blood cultures came back positive for staph aureus. X-ray of the right knee showed medial femoral condyle fracture with joint effusion, septic arthritis felt unlikely by ortho. To further evaluate possible source he underwent CT of the chest which demonstrated a small amount of soft tissue swelling with air posterior to lucency of the proximal sternum possible osteomyelitis or nonunion of fracture, this was felt to be consistent with recent sternal fracture from CPR. Patient's Blood cultures cleared as of 05/26. He had midline placed and was discharged with 2 weeks of cefazolin per ID recommendations. D/c medications sent to pharmacy for medications to bedside service. he should f/u with PCP, ID, and cardiology. I spent 45 minutes coordinating this discharge on 05/30 Vital signs reviewed General: nontoxic, no distress, appears at stated age Cardiovascular: S1S2 reg, no murmur, positive posterior tibial pulse bilateral, Lungs: CTA bilateral, no rhonchi, no rales , no accessory muscle use Abdominal: soft, nontender to palpation, no guarding, no appreciable organomegaly Ext: no gross muscle atrophy, no edema b/l lower extremities, no contractures, left arm with erythema without warmth and small opening without drainage Neuro: CN II-XI grossly intact, no focal neuro deficits Psych: Alert, oriented, appropriate affect Patient Condition at Discharge: Good Plan - Discharge Summary Discharge Rx Participant: Yes New Discharge Prescriptions: New Prasugrel [Effient] 10 mg PO DAILY #30 tab Atorvastatin [Lipitor] 80 mg PO HS #30 tab Acetaminophen Tab [Tylenol] 650 mg PO Q6HR PRN tab PRN Reason: Fever And/ Or Pain Empagliflozin [Jardiance] 10 mg PO DAILY #30 tablet Aspirin 81 mg PO DAILY #30 tab Dapagliflozin Propanediol [Farxiga] 5 mg PO DAILY #30 tab Metoprolol Tartrate [Lopressor] 25 mg PO BID #60 tab Nitroglycerin Sl Tabs [Nitrostat] 0.4 mg SUBLINGUAL Q5M PRN #15 tab PRN Reason: Chest Pain Pantoprazole [Protonix] 40 mg PO AC-BRKFST #30 tab Sodium Chloride Tab 1 gm PO BID #60 tab lisinopriL [Zestril] 5 mg PO DAILY #30 tab Continue ALPRAZolam [Xanax] 0.25 mg PO DAILY PRN PRN Reason: Anxiety oxyCODONE HCL [oxyCODONE HCL (IR)] 15 mg PO BID Tamsulosin HCl [Flomax] 0.4 mg PO DAILY PARoxetine [Paxil] 60 mg PO DAILY Morphine Sulfate ER [Ms Contin] 30 mg PO Q12HR Gabapentin 800 mg PO TID Caffeine Tablet 1 tab PO DAILY PRN PRN Reason: energy Discharge Medication List ALPRAZolam [Xanax] 0.25 mg PO DAILY PRN 05/19/23 [History] Caffeine Tablet 1 tab PO DAILY PRN 05/19/23 [History] Gabapentin 800 mg PO TID 05/19/23 [History] Morphine Sulfate ER [Ms Contin] 30 mg PO Q12HR 05/19/23 [History] PARoxetine [Paxil] 60 mg PO DAILY 05/19/23 [History] Tamsulosin HCl [Flomax] 0.4 mg PO DAILY 05/19/23 [History] oxyCODONE HCL [oxyCODONE HCL (IR)] 15 mg PO BID 05/19/23 [History] Empagliflozin [Jardiance] 10 mg PO DAILY #30 tablet 05/23/23 [Rx] Acetaminophen Tab [Tylenol] 650 mg PO Q6HR PRN tab 05/30/23 [Rx] Aspirin 81 mg PO DAILY #30 tab 05/30/23 [Rx] Atorvastatin [Lipitor] 80 mg PO HS #30 tab 05/30/23 [Rx] Dapagliflozin Propanediol [Farxiga] 5 mg PO DAILY #30 tab 05/30/23 [Rx] Metoprolol Tartrate [Lopressor] 25 mg PO BID #60 tab 05/30/23 [Rx] Nitroglycerin Sl Tabs [Nitrostat] 0.4 mg SUBLINGUAL Q5M PRN #15 tab 05/30/23 [Rx] Pantoprazole [Protonix] 40 mg PO AC-BRKFST #30 tab 05/30/23 [Rx] Prasugrel [Effient] 10 mg PO DAILY #30 tab 05/30/23 [Rx] Sodium Chloride Tab 1 gm PO BID #60 tab 05/30/23 [Rx] lisinopriL [Zestril] 5 mg PO DAILY #30 tab 05/30/23 [Rx] Follow up Appointment(s)/Referral(s): [facility], [NON-STAFF] - 1 Week [facility],Infusion [NON-STAFF] - 1 Week None,Stated [REFERRING] - 1-2 days Patient Instructions/Handouts: Chest Pain (GEN), Hyponatremia (ED), Hyponatremia (GEN), Sepsis (GEN) Discharge Disposition: HOME WITH HOME HEALTH SERVICES
--- NOTE | 2023-05-30 11:45 | P.PN ---
Subjective Patient is seen for follow-up for hyponatremia. sodium has improved with sodium chloride tablets. Fluid restriction was changed to 2 L as patient is complaining of severe dry mouth. Status post [facility] last night Sodium at 139 today. No significant complaints today. Complaining of dry mouth Objective - Vital Signs Vital signs: Vital Signs Temp 98.4 F 05/30/23 07:55 Pulse 81 05/30/23 07:55 Resp 12 05/30/23 07:55 BP 95/60 05/30/23 07:55 Pulse Ox 95 05/30/23 07:55 FiO2 Intake & Output 05/29/23 05/30/23 05/30/23 18:59 06:59 18:59 Intake Total 1250 640 170 Output Total 300 1500 Balance 950 -860 170 Weight 74.5 kg Intake: IV 100 100 50 ceFAZolin 2 gm In Sodium 100 100 50 Chloride 0.9% 50 ml @ 100 mls/hr IVPB Q8HR JENNIFER Rx# :[id number] Oral 1150 540 120 Output: Urine 300 1500 Other: Voiding Method Toilet Toilet Urinal Urinal # Voids 1 1 # Bowel Movements 1 - Exam Patient is awake, comfortable, no acute distress Alert oriented 3 Examination of the heart S1 and S2 Examination of the lungs bilateral breath sounds are heard Abdomen is soft nontender 1+ edema TILE GRINDER exam grossly intact. - Labs CBC & Chem 7: 05/29/23 04:21 05/30/23 08:15 Labs: Abnormal Lab Results - Last 24 Hours (Table) 05/29/23 05/29/23 05/30/23 Range/Units 16:38 20:10 06:32 Carbon Dioxide (22-30) mmol/L Glucose (74-99) mg/dL POC Glucose (mg/dL) 153 H 115 H 116 H (70-110) mg/dL 05/30/23 Range/Units 08:15 Carbon Dioxide 31 H (22-30) mmol/L Glucose 117 H (74-99) mg/dL POC Glucose (mg/dL) (70-110) mg/dL Microbiology - Last 24 Hours (Table) 05/28/23 18:57 Blood Culture - Preliminary Blood 05/26/23 04:12 Blood Culture - Preliminary Blood Assessment and Plan Assessment: 1. 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 GFR at baseline. Urine sodium 59 and urine osmolality 640. TSH normal. Improved sodium chloride tabs and fluid restriction. Also received 1 dose of Samsca 2. STEMI status post cardiac catheterization with stent to the RCA in 05/19/20 23. 3. IV site infection on antibiotics. Previous history of right knee infection. Blood cultures are growing gram-positive cocci in clusters. 4. Staph aureus bacteremia maintained on cefazolin, being followed by ID Plan: Continue with sodium chloride tabs, decrease to once a day Continue with some degree of fluid restriction. Patient is very reluctant to follow fluid restriction due to complaints of dry mouth. Currently receiving ice chips and wet sponges. Repeat labs in a.m.
[2023-05-30 12:15] VITALS: BP 104/79; PULSE 71; TEMP 98.1
--- NOTE | 2023-05-30 16:12 | P.PN ---
Subjective Progress Note Date: 05/30/23 Principal diagnosis: Reason for follow-up is MSSA bacteremia Patient is a 67-year-old male with a past medical history significant for depression anxiety did have a right knee replacement patient was brought into the hospital with [id number] cardiac arrest did have SD requiring PTCA and stenting of the RCA patient did develop fever and MSSA bacteremia likely related to the left antecubital fossa IV site infection On today's evaluation that is 05/30/2023, the patient continues to be afebrile and is breathing comfortably on room air, and patient denies any shortness of breath, the patient is complaining of central chest pain however no worsening cough or sputum production, patient denies abdominal pain, no nausea/vomiting and no diarrhea has been reported Patient white count normalized to 9.4 as of 05/29/2023, creatinine is 0.74, blood cultures from 05/25/2023 positive, however blood culture from 05/26/2023 has been negative, patient did have a CT of the chest small amount of soft tissue swelling with air posterior to lucency through the proximal central correlate for osteomyelitis or nonunion of the fracture Objective - Vital Signs Vital signs: Vital Signs Temp 98.4 F 05/30/23 07:55 Pulse 81 05/30/23 07:55 Resp 12 05/30/23 07:55 BP 95/60 05/30/23 07:55 Pulse Ox 95 05/30/23 07:55 FiO2 Intake & Output 05/29/23 05/30/23 05/30/23 18:59 06:59 18:59 Intake Total 1250 640 170 Output Total 300 1500 Balance 950 -860 170 Weight 74.5 kg Intake: IV 100 100 50 ceFAZolin 2 gm In Sodium 100 100 50 Chloride 0.9% 50 ml @ 100 mls/hr IVPB Q8HR COUNT INCLUDES THE [facility] Rx# :[id number] Oral 1150 540 120 Output: Urine 300 1500 Other: Voiding Method Toilet Toilet Urinal Urinal # Voids 1 1 # Bowel Movements 1 - Exam GENERAL DESCRIPTION: An elderly male lying in bed in no distress RESPIRATORY SYSTEM: Unlabored breathing , clear to auscultation anteriorly HEART: S1 S2 regular rate and rhythm , ABDOMEN: Soft , no tenderness EXTREMITIES: No edema feet - Labs CBC & Chem 7: 05/29/23 04:21 05/30/23 08:15 Labs: Abnormal Lab Results - Last 24 Hours (Table) 05/29/23 05/29/23 05/30/23 Range/Units 16:38 20:10 06:32 Carbon Dioxide (22-30) mmol/L Glucose (74-99) mg/dL POC Glucose (mg/dL) 153 H 115 H 116 H (70-110) mg/dL 05/30/23 Range/Units 08:15 Carbon Dioxide 31 H (22-30) mmol/L Glucose 117 H (74-99) mg/dL POC Glucose (mg/dL) (70-110) mg/dL Microbiology - Last 24 Hours (Table) 05/28/23 18:57 Blood Culture - Preliminary Blood 05/26/23 04:12 Blood Culture - Preliminary Blood Assessment and Plan (1) MSSA bacteremia Current Visit: Yes Status: Acute Code(s): R78.81 - BACTEREMIA; B95.61 - METHICILLIN SUSCEP STAPH INFCT CAUSING DIS CLASSD [id number] SNOMED Code(s): 927009497 Plan: 1patient with an episode of sepsis in this patient who did have a fever elevated white count with evidence of MSSA bacteremia source likely left arm/antecubital fossa IV site infection that has been discontinued patient did have a prosthetic right knee, with some swelling minimal warmth was noticed but no significant redness clinically doubt source of this bacteremia however risk of seeding from this bacteremia 2blood cultures repeat 05-25-2023 are positive however blood cultures 05/26/2023 has been negative so far patient be able to get a midline on the 12/11/2022 3patient also have CT of the chest with possibility of fracture and soft tissue related to recent chest compression clinical suspicious low for osteomyelitis but not entirely excluded. 4we will give him a dose of daptomycin 1 as the home infusion will start tomorrow as per discussion with the director of casework department, plan is for two-week course of cefazolin and close patient follow-up multiple questions were answered Dictation was produced using [employer] software. please excuse any grammatical, word or spelling errors. Time with Patient: Less than 30
[2023-05-31] MEDS ORDERED: SODIUM CHLORIDE TAB 1 GM TAB PO SCH (09:00)
== END 2023-05-30 16:35 | disposition home health service (06) | DRG 321 ==
LOC: EC 08:22 → 2SICU 08:47
PROVIDERS: ADMIT Internal Medicine; ATTEND Internal Medicine
PROC: 4A023N7 Measurement of Cardiac Sampling and Pressure, Left Heart, Percutaneous Approach (ICD-10-PCS; 2023-05-19)
PROC: B2111ZZ Fluoroscopy of Multiple Coronary Arteries using Low Osmolar Contrast (ICD-10-PCS; 2023-05-19)
PROC: 027034Z Dilation of Coronary Artery, One Artery with Drug-eluting Intraluminal Device, Percutaneous Approach (ICD-10-PCS; principal; 2023-05-19 08:34)
PROC: 02C03ZZ Extirpation of Matter from Coronary Artery, One Artery, Percutaneous Approach (ICD-10-PCS; 2023-05-19 08:34)
PROC: B240ZZ3 Ultrasonography of Single Coronary Artery, Intravascular (ICD-10-PCS; 2023-05-19 08:34)
PROC: 05HA33Z Insertion of Infusion Device into Left Brachial Vein, Percutaneous Approach (ICD-10-PCS; 2023-05-29)
DX: I21.3 ST elevation (STEMI) myocardial infarction of unspecified site (principal); A41.01 Sepsis due to Methicillin susceptible Staphylococcus aureus; I46.2 Cardiac arrest due to underlying cardiac condition; I49.01 Ventricular fibrillation; K85.90 Acute pancreatitis without necrosis or infection, unspecified; S72.433A Displaced fracture of medial condyle of unspecified femur, initial encounter for closed fracture; E22.2 Syndrome of inappropriate secretion of antidiuretic hormone; I42.8 Other cardiomyopathies; L03.114 Cellulitis of left upper limb; M96.A1 Fracture of sternum associated with chest compression and cardiopulmonary resuscitation; E78.5 Hyperlipidemia, unspecified; E83.42 Hypomagnesemia; F32.A Depression, unspecified; I80.8 Phlebitis and thrombophlebitis of other sites; I10 Essential (primary) hypertension; Z87.891 Personal history of nicotine dependence; Z11.52 Encounter for screening for COVID-19; Z28.21 Immunization not carried out because of patient refusal; F41.9 Anxiety disorder, unspecified; G89.29 Other chronic pain; I25.10 Atherosclerotic heart disease of native coronary artery without angina pectoris; K21.9 Gastro-esophageal reflux disease without esophagitis; R73.03 Prediabetes; M25.461 Effusion, right knee; M19.90 Unspecified osteoarthritis, unspecified site; N40.0 Benign prostatic hyperplasia without lower urinary tract symptoms; Z91.81 History of falling; Z79.02 Long term (current) use of antithrombotics/antiplatelets; Z79.4 Long term (current) use of insulin; Z79.82 Long term (current) use of aspirin; Z79.84 Long term (current) use of oral hypoglycemic drugs; Z79.899 Other long term (current) drug therapy; Z82.49 Family history of ischemic heart disease and other diseases of the circulatory system; Z96.651 Presence of right artificial knee joint; Z79.891 Long term (current) use of opiate analgesic; Z71.3 Dietary counseling and surveillance; Z28.310 Unvaccinated for COVID-19
CPT/HCPCS: 36410; 36415; 71045; 71250; 76937; 80048; 80053; 80061; 80202; 81001; 82533; 82565; 83036; 83735; 83930; 83935; 84100; 84295; 84300; 84443; 84484; 85025; 85027; 85610; 85652; 85730; 86140; 87040; 87077; 87186; 87636; 92978; 93005; 93306; 93458; 96374; 99291

== ENCOUNTER → 2023-06-28 | Day surgery (SDC) | payer BC ==
[2023-06-27 12:14] VITALS: BMI 24.3
[2023-06-28 08:15] VITALS: BP 131/82; PULSE 75; RESP 18; TEMP 98.7
== END ==
LOC: CATHCVL 07:14
PROVIDERS: ATTEND Internal Medicine Infectious Disease
DX: R78.81 Bacteremia (principal); F41.9 Anxiety disorder, unspecified; F32.A Depression, unspecified; Z79.82 Long term (current) use of aspirin; Z79.899 Other long term (current) drug therapy
CPT/HCPCS: 36410; 76937; C1751